=== PATIENT | male | born 1960 | race Caucasian/White ===

== ENCOUNTER 2024-06-23 11:24 | Emergency (ER) | payer OTHER, SELFPAY ==
[2024-06-23 11:27] VITALS: BP 161/106
--- NOTE | 2024-06-23 13:15 | ED.MUSCINJ ---
HPI-Injury
General
Chief Complaint: Musculo-Skeletal Complaint
Source: patient
Exam Limitations: none
Time Seen by Provider: 06/23/24 12:13
Nursing documentation reviewed up to this point in time: agreed with
History of Present Illness-Injury
Initial Injury comments:
64-year-old male with history of HTN, was taking the trash out down his outside steps at home within the past few hours, slipped on the step and injured his right ankle and anterior right thigh, denies hitting his head or any other injury
Past History
Past History
ED Past Medical History: HTN
ED Past Surgical History: Orthopedic
Social History
Tobacco: Non-smoker
Alcohol: Occasional
Personal:
Living: with family
Employment: Retired
Review of Systems
Review of Systems
Allergies reviewed?: Yes
All Other Systems: ROS reviewed and negative except as documented in HPI and ROS
Musculoskeletal: Reports other (Pain right thigh and ankle); Denies neck pain or back pain
Skin: Reports no symptoms
Neurological: Reports no symptoms
Phy Exam
Physical Exam
Physical Exam:
GENERAL: No acute distress. A&Ox3.
CONSTITUTIONAL: Afebrile.
RESPIRATORY: Regular respirations, nonlabored, lungs clear.
CARDIOVASCULAR: Regular rate and rhythm, no murmurs, no rubs.
MUSCULOSKELETAL: Tenderness and swelling right ankle, brisk capillary refill, pedal pulse normal, foot is pink, cool. Knee is nontender with good range of motion. Tender to palpate over distal quadriceps, no significant swelling here no
discoloration, pain aggravated when he raises his leg or bends his knee. Distal neurovascular intact. Well perfused.
SKIN: Warm, dry, pink
PSYCH: Normal mood and affect. Well kept, interactive and appropriate
NEUROLOGIC: Awake, alert and oriented. No focal neurological deficits
Injury Course
Orders/Labs/Results
Orders:
Orders
06/23/24 11:29
CR Ankle - Right Min 3 Views * Urgent
Comment:
Reason For Exam: fall down steps
Femur, Right 2 View [CR Femur - Right Min 2 Vw] Urgent
Comment:
Reason For Exam: fall down steps
MDM/Problems Addressed
Differential Diagnosis Includes:
Fracture versus sprain of right
Muscle strain versus sprain of right quadriceps, femur fracture
MDM/Problems Addressed:
64-year-old male with history of HTN, was taking the trash out down his outside steps at home within the past few hours, slipped on the step and injured his right ankle and anterior right thigh, denies hitting his head or any other injury
X-ray right femur reveals no fracture. Initially read by this examiner
X-ray right ankle reveals a comminuted minimally displaced fracture of the distal fibula, initial reading by this examiner
No sign of disruption of the quadriceps muscle/tendon, exam more consistent with a muscle strain
Stirrup splint applied, crutches given
Neurovascular intact
Referred to orthopedics
*Critical Care Note
Total Time (30-74mins, 75-104mins- exclusive of procedures): Not Applicable
ED Attending Note
-
Portions of this chart may have been created with voice recognition software.� Occasional wrong word or��sound alike� substitutions may have occurred due to the inherent limitations of voice recognition software.
Discharge Plan
Departure
Patient Disposition: Home (Routine Discharge)
Date of Disposition: 06/23/24
Time of Disposition: 13:23
Patient with high blood pressure during this ER visit?: No
Condition: Good
Discharge Problem:
Fall from slip, trip, or stumble, Closed fracture of distal end of right fibula, Quadriceps strain
Instructions: Ankle Fracture (DC), Using Cold for Pain, Muscle Strain ED
Referrals:
Sahara Abarca I., DO [Active] - Next open appointment
Janet Chan PA-C [Family Provider] -
Activity Restrictions/Additional Instructions:
As we discussed, use the crutches with little to no weightbearing until further instructed by the orthopedic doctor. Call the orthopedic doctors office today and make next available appointment for a 'comminuted fracture of the distal fibula.'
Tylenol or ibuprofen as needed for pain
Rest with foot elevated to the level of your heart is much as you can in the next 2 days. Apply cold compress on top of your ankle 20 minutes off and on today and tomorrow is much as you can
You pulled your quadriceps muscle. You may apply cold compress to that area also.
Interventions
Interventions:
*Risk Screen - Suicide Last Done: 06/23/24 11:29
*General Assessment Last Done: 06/23/24 11:29
*Neglect/Abuse Screening Last Done: 06/23/24 11:29
*ED COVID-19 Vaccine History Last Done: 06/23/24 11:29
*Nursing Disposition Last Done: 06/23/24 13:46
ED-Musculoskeletal Assessment Last Done: 06/23/24 12:05
Discharge Date and Time
Discharge Date/Time: 06/23/24 13:47
Print Language: URDU
[2024-06-23 13:28] VITALS: BP 142/85
== END 2024-06-23 13:47 | disposition home or self-care (01) ==
LOC: EMR 11:24
PROVIDERS: EMERGENCY PHYSICIAN Emergency Medicine; FAMILY PHYSICIAN Physician Assistant
DX: S82.831A Other fracture of upper and lower end of right fibula, initial encounter for closed fracture (principal); S76.111A Strain of right quadriceps muscle, fascia and tendon, initial encounter; W10.9XXA Fall (on) (from) unspecified stairs and steps, initial encounter; I10 Essential (primary) hypertension
CPT/HCPCS: 29515; 99283; 73552; 73610

== ENCOUNTER → 2024-06-25 15:59 | Outpatient (REF) | payer OTHER, SELFPAY | LOC: RCS 15:59 | PROVIDERS: ATTENDING PHYSICIAN Student in an Organized Health Care Education/Training Program; FAMILY PHYSICIAN Physician Assistant | DX: Z01.818 Encounter for other preprocedural examination (principal) | CPT/HCPCS: 93005 ==

== ENCOUNTER 2024-06-26 12:46 | Day surgery (SDC) | payer OTHER, SELFPAY ==
[2024-06-26] VITALS (11 sets, daily range): BP systolic 118–167; BP diastolic 71–96; BMI 35.5
[2024-06-26] MEDS: CELEBREX 200 MG PO (13:41)
[2024-06-26] MEDS: TYLENOL 1000 MG PO (13:41)
[2024-06-26] MEDS: NORMOSOL-R/PLASMALYTE-A 1000 IV (13:42)
[2024-06-26] MEDS: REMERON 15 MG PO (20:37)
[2024-06-26] MEDS: ZOLOFT 100 MG PO (20:37)
[2024-06-26] MEDS: TYLENOL 650 MG PO ×2 (20:37→23:18)
[2024-06-26] MEDS: COLACE 100 MG PO (20:37)
[2024-06-26] MEDS: ASPIRIN 325 MG PO (20:37)
[2024-06-26] MEDS: ZESTRIL 10 MG PO (20:38)
[2024-06-26] MEDS: SENOKOT PO (20:38)
[2024-06-27] VITALS (8 sets, daily range): BP systolic 99–135; BP diastolic 61–88; PULSE 87
--- NOTE | 2024-06-27 00:42 | PTCARENOTE ---
Pt arrived from PACU at 1999 in bed. Pt AAOX3. VSS. Neurovascular checks WNL. R knee primaseal scant drainage. immobilizer to R leg in place. R ankle splinted and kendal wrapped. leg elevated with ice. Pt oriented to room and call reynoso. bed in lowest
position and locked.
[2024-06-27] MEDS: TYLENOL 650 MG PO ×6 (03:23→23:01)
[2024-06-27] MEDS: ROXICODONE 5 MG PO (03:23)
[2024-06-27] MEDS: ASPIRIN 325 MG PO (08:11)
[2024-06-27] MEDS: COLACE 100 MG PO ×2 (08:11→20:09)
[2024-06-27] MEDS: SENOKOT PO (08:15)
[2024-06-27] MEDS: ROXICODONE 10 MG PO ×3 (08:23→20:46)
--- NOTE | 2024-06-27 09:46 | W.PN.ORTHO ---
Today's Communication / Plan
-
POD #1 s/p right quad tendon repair and ankle ORIF.
-Pain control with oxy, tylenol, and will add celebrex BID.
-NWB RLE with hinged knee brace locked in extension.
-PT/OT for crutch training.
-ASA 325 mg po daily x 4 weeks for DVT prophylaxis.
-D/c home pending PT session. Will consult case management to set up home PT/OT to assist with transition to home.
-F/u in office in 2 weeks for staple removal.
Assessment
.
Distal Motor Intact: Yes
Dressing:
Clean, dry and intact.
Assessment:
POD #1 s/p right quad tendon repair and ankle ORIF.
-Pain control with oxy, tylenol, and will add celebrex BID.
-NWB RLE with hinged knee brace locked in extension.
-PT/OT for crutch training.
-ASA 325 mg po daily x 4 weeks for DVT prophylaxis.
-D/c home pending PT session. Will consult case management to set up home PT/OT to assist with transition to home.
-F/u in office in 2 weeks for staple removal.
Plan
.
Surgery / Date: 06/26/2024 R quad tendon repair and ankle ORIF
DVT Prophylaxis: Aspirin
Activity:
Out of bed.
PT/OT
Discharge Plan: Home
Subjective
.
.:
Patient resting comfortably POD #1. Just took oxycodone for pain relief. Feels a little unsure of himself with the crutches and is hoping to have home PT/OT help with the transition home.
Vital Signs and Labs
.
Vital Signs and Labs:
Temp Pulse Resp BP Pulse Ox
98.2 F 69 18 118/65 96
06/27/24 07:00 06/27/24 07:00 06/27/24 07:00 06/27/24 07:00 06/27/24 07:00
Physical Exam
-
Right leg: Aquacel on knee with mild drainage. Moderate swelling and early ecchymosis. ROM brace in place locked in extension. Ankle splint c/d/i. Able to wiggle toes. Cap refill < 1 sec.
--- NOTE | 2024-06-27 09:57 | W.DS.TRANS ---
DC Summary - [employer]
-
Discharge Instructions:
Discharge Diagnosis/Procedures S/p right quad tendon repair and ankle ORIF
Diet As tolerated
Activity Do not bear weight R leg
Driving Restrictions No driving
Bathing Restrictions Keep dressing on right leg clean and dry.
Other Services PT
Wound Care Dressing to remain in place until post op appt
in office. Do not get dressings/splint wet.
Instructions:
Stand-Alone Forms:
Changes to Home Medications: No
Discharge Medications:
DC Medications w/original date entered in [employer] [facility]
acetaminophen 500 mg tablet 1,000 mg PO Q6H PRN pain 06/26/24
lisinopril 20 mg tablet 20 mg PO QPM 06/26/24
mirtazapine 15 mg tablet 15 mg PO QPM 06/26/24
oxycodone 5 mg tablet 5 mg PO Q4H PRN pain 06/26/24
sertraline 100 mg tablet 100 mg PO QPM 06/26/24
aspirin 325 mg tablet 325 mg PO DAILY DVT prophylaxis 30 days #30 tabs 06/27/24
celecoxib 100 mg capsule (Celebrex) 100 mg PO BID 15 days #30 caps 06/27/24
docusate sodium 100 mg capsule 200 mg (2 x 100 mg) PO BID 14 days #56 caps 06/27/24
sennosides 8.6 mg tablet (Stephanie-fernando) 17.2 mg (2 x 8.6 mg) PO BID 14 days #56 tabs 06/27/24
Home Medication Changes
Pending Results: No
--- NOTE | 2024-06-27 10:19 | CM ---
Addendum entered by Angelica Pennington RN 06/27/24 10:52:
[facility] fax:
Original Note:
Reviewed the chart notes and spoke with the patient at the bedside. Patient [place] with his spouse [facility] with a flight of steps to enter. The patient has a CPAP and shower bench. The patient has no had VN nor been to SNF. The
patient confirmed his [facility]. The patient is requesting VN and OT from [facility]. Referral sent in [facility]. CM continues to be available to patient/family and is monitoring medical plan for needs at discharge.
Plan: Discharge to home with [facility].
--- NOTE | 2024-06-27 12:31 | PTCARENOTE ---
Spoke with CM Ada Pennington regarding PT stating patient does not qualify for Home Care and needs placement; on Ada's behalf I sent tiger text to [facility]STRADA that CM will need PMR consult for pre-cert for acute rehab.
[2024-06-27] MEDS: ZESTRIL 10 MG PO (17:14)
[2024-06-27] MEDS: ZOLOFT 100 MG PO (17:15)
[2024-06-27] MEDS: REMERON 15 MG PO (17:15)
[2024-06-27] MEDS: SENOKOT 17.2 MG PO (20:09)
[2024-06-28] MEDS: ROXICODONE 10 MG PO ×2 (04:37→21:40)
[2024-06-28] MEDS: TYLENOL 650 MG PO ×5 (04:37→20:59)
[2024-06-28 07:15] VITALS: BP 115/75
--- NOTE | 2024-06-28 07:40 | W.PN.ORTHO ---
Today's Communication / Plan
-
POD #2 s/p right quad tendon repair and ankle ORIF.
-Pain control with oxy, tylenol, and will add celebrex BID. C/o incisional pain so will add Gabapentin 100 mg TID.
-NWB RLE with hinged knee brace locked in extension.
-PT/OT for crutch training.
-ASA 325 mg po daily x 4 weeks for DVT prophylaxis.
-D/c to acute rehab. Consult pending for [facility].
-F/u in office in 2 weeks for staple removal.
Assessment
.
Distal Motor Intact: Yes
Dressing:
Clean, dry and intact.
Assessment:
POD #2 s/p right quad tendon repair and ankle ORIF.
-Pain control with oxy, tylenol, and will add celebrex BID. C/o incisional pain so will add Gabapentin 100 mg TID.
-NWB RLE with hinged knee brace locked in extension.
-PT/OT for crutch training.
-ASA 325 mg po daily x 4 weeks for DVT prophylaxis.
-D/c to acute rehab. Consult pending for [facility].
-F/u in office in 2 weeks for staple removal.
Plan
.
Surgery / Date: 06/26/2024 R quad tendon repair and ankle ORIF
Activity:
Out of bed.
PT/OT
Discharge Plan: Rehab
Subjective
.
.:
Patient resting comfortably in bed, but does report a difficult time sleeping due to 'incisional pain'. Had some challenges with PT yesterday due to balance issues so acute rehab was recommended. Consult has been placed.
Vital Signs and Labs
.
Vital Signs and Labs:
Temp Pulse Resp BP Pulse Ox
98.3 F 74 18 110/66 96
06/27/24 23:08 06/27/24 23:08 06/27/24 23:08 06/27/24 23:08 06/27/24 23:08
Physical Exam
-
Right leg: Knee ROM in place locked in extension. Primaseal dressing with stable drainage. Moderate soft tissue swelling and early ecchymosis. Splint in place on right ankle. Able to wiggle toes. N/v intact distally.
[2024-06-28] MEDS: NEURONTIN 100 MG PO ×3 (08:07→21:37)
[2024-06-28] MEDS: SENOKOT 17.2 MG PO ×2 (08:07→20:59)
[2024-06-28] MEDS: COLACE 100 MG PO ×2 (08:07→20:59)
[2024-06-28] MEDS: ASPIRIN 325 MG PO (08:08)
[2024-06-28] MEDS: CELEBREX 100 MG PO ×2 (08:08→20:59)
--- NOTE | 2024-06-28 09:11 | CM ---
Reviewed the chart notes. Referral sent to [facility]. PMR consult pending. CM continues to be available to patient/family and is monitoring medical plan for needs at discharge.
Plan: Discharge to Acute Rehab once bed found and precert obtained.
[2024-06-28] MEDS: ROXICODONE 5 MG PO (12:28)
[2024-06-28 13:36] VITALS: BP 128/87; PULSE 75; O2SAT 94
[2024-06-28 15:56] VITALS: BP 134/81
[2024-06-28] MEDS: REMERON 15 MG PO (17:26)
[2024-06-28] MEDS: ZESTRIL 10 MG PO (17:26)
[2024-06-28] MEDS: ZOLOFT 100 MG PO (17:26)
[2024-06-28 22:25] VITALS: BP 148/81
[2024-06-29] MEDS: TYLENOL 650 MG PO ×6 (00:33→23:05)
[2024-06-29 08:11] VITALS: BP 142/91
[2024-06-29] MEDS: ASPIRIN 325 MG PO (08:17)
[2024-06-29] MEDS: CELEBREX 100 MG PO ×2 (08:17→19:46)
[2024-06-29] MEDS: SENOKOT PO (08:18)
[2024-06-29] MEDS: COLACE 100 MG PO ×2 (08:19→19:46)
[2024-06-29] MEDS: NEURONTIN 100 MG PO ×3 (08:19→23:05)
[2024-06-29] MEDS: ROXICODONE 5 MG PO (08:21)
--- NOTE | 2024-06-29 08:51 | W.PN.ORTHO ---
Today's Communication / Plan
-
POD #3 s/p right quad tendon repair and ankle ORIF.
-Pain control with oxy, tylenol, and will add celebrex BID. C/o incisional pain so will add Gabapentin 100 mg TID.
-NWB RLE with hinged knee brace locked in extension.
-PT/OT for crutch training.
-ASA 325 mg po daily x 4 weeks for DVT prophylaxis.
-D/c to acute rehab ([facility]). Consult pending
-F/u in office in 2 weeks for staple removal.
Assessment
.
Distal Motor Intact: Yes
Dressing:
Dry and intact. Mild strikethrough contained on Aquacel.
Assessment:
POD#3 Right QT repair and Right ankle ORIF
Overall doing/feeling well
Proximal calf soft and nontender
DNVI RLE
Plan
.
Surgery / Date: R quad tendon repair and ankle ORIF Jun 27
DVT Prophylaxis: Aspirin
Activity:
Out of bed. NWB RLE. hinged ROM brace to remain. Right ankle splint to remain
PT/OT
Discharge Plan: Rehab ([facility]?)
Subjective
.
.:
Patient resting comfortably. Endorses less pain today RLE. hinged ROM brace in place right knee. Splint in place right ankle
Vital Signs and Labs
.
Vital Signs and Labs:
Temp Pulse Resp BP Pulse Ox
98.2 F 71 18 142/91 95
06/29/24 08:11 06/29/24 08:11 06/29/24 08:11 06/29/24 08:11 06/29/24 08:11
[2024-06-29] MEDS: TYLENOL PO (12:52)
[2024-06-29] MEDS: SENOKOT 17.2 MG PO (15:06)
--- NOTE | 2024-06-29 15:50 | CM ---
Met with pt/chart reviewed
Pt updated status of acute rehab. Requested additional referrals be sent to [facility]
Referrals sent in [facility]
Will need auth
Plan - Acute rehab when bed/auth obtained
[2024-06-29 16:24] VITALS: BP 162/96; PULSE 78; O2SAT 97
[2024-06-29 16:38] VITALS: BP 160/100; BP 162/95; PULSE 85; O2SAT 95
--- NOTE | 2024-06-29 17:29 | W.PN.SURGUPD ---
Surgical Update
Surgical Update
patient is s/p R ankle ORIF 06/26. Recovering well at bedside
-Patient seen and evaluated at bedside. Posterior splint C/D/I
-Toes pink and well perfused, denies any calf pain
-Pain is well controlled
-NWB to RLE per ankle and quad tendon repair protocol
-Ok for discharge
--- NOTE | 2024-06-29 17:30 | CON.MD ---
Documented by User: Mary Calderon PA-C 06/29/24 18:16
Consultation - Medical
-
Referring Provider:�
Chief Complaint:�Ambulatory dysfunction status post right patella tendon repair and ankle ORIF
�
History of Present Illness:�64-year-old male with PMH of (HTN, was taking the trash out down his outside steps at home within the past few hours, slipped on the step and injured his right ankle and anterior right thigh, denies hitting his head or
any other injury. X-ray of right femur- There is mild joint space narrowing suggesting degenerative joint disease at the right. x-ray of ankle - There is acute comminuted oblique fracture of the distal fibular metaphysis with 2 mm posterolateral
displacement of the distal fracture fragment.
Patient underwent right ankle ORIF and right quad tendon repair by Dr. Darnell on 06/26/24
xray - ankle - 06/26/24
�There is a metallic plate along lateral aspect of the distal right fibula with 5 surgical screws through the metallic plate. 2 longer screw were placed through the metallic plate and through the distal tibial metaphysis There is one additional
surgical screw at the fracture line in the distal fibular metadiaphysis. . This was a comminuted fracture. Alignment appears improved.
Past Medical History:�HTN. h/o right vestibula schwannoma, baseline dizziness
Procedure History:�Right patellar tendon repair, right ankle ORIF- 06/26/24, gamma knife- right vestibular schwannoma
Family History:�not contributory
�
Social History:�
Functional Level Premorbidly:�Independent with all activities�
Functional Level Currently:�Bed mobility�mod assist, transfers�min assist, ambulation time 15 feet, 2 x 25 feet with rolling walker and min assist x 1. Toileting�max assist, upper extremity self-care�independent, lower extremity self-care�max
assist,
�
Tobacco:�Denies�
Alcohol:�Occasional
Drug use:�Denies�
�
Lives with:�Family
24-hour assistance available:�
Number of floors:�Multilevel
# steps to enter:�5 + 8 steps to living space
# steps to second floor: [facility]
Potential First floor set up:�no
Driving:�yes
Occupation:�retired
�
�
Allergies:�
Allergy/AdvReac Type Severity Reaction Status Date / Time
No Known Allergies Allergy Unverified 06/26/24 12:55
�
Review of Systems:�
Constitutional: (x) Normal _
Eye: (x) Normal _
Ear/Nose/Throat: (x) abNormal _ right vestibular schwannoma- s/p gamma knife, dizziness
Respiratory: (x) Normal _
Cardiovascular: (x) abNormal _HTN
Gastrointestinal: (x) Normal _
Genitourinary: (x) Normal _
Musculoskeletal: (x) abNormal _s/p right ankle ORIF and quad tendon repair
Integumentary: (x) Normal _
Neurologic: (x) Normal _
Psychiatric: (x) Normal _
Endocrine: (x) Normal _
Hematologic/Lymphatic: (x) Normal _
Allergic/Immunologic: (x) Normal _
�
Medications:�
Active Current Visit Medication List
Category Date Time Status
Acetaminophen [Tylenol] Med 06/26/24 20:00 Active
650 mg PO Q4HWA
Aspirin Med 06/26/24 17:00 Active
325 mg PO DAILY
Celecoxib [Celebrex] Med 06/28/24 08:00 Active
100 mg PO BID
Docusate Sodium [Colace] Med 06/26/24 20:00 Active
100 mg PO BID
Gabapentin [Neurontin] Med 06/28/24 08:00 Active
100 mg PO TID
HYDROmorphone [Dilaudid] Med 06/26/24 16:40 Active
0.5 mg IV Q3HPRN PRN
Lisinopril [Zestril] Med 06/26/24 19:00 Active
10 mg PO QPM
Mirtazapine [Remeron] Med 06/26/24 18:00 Active
15 mg PO QPM
Oxycodone [Roxicodone] Med 06/26/24 16:40 Active
10 mg PO Q4HPRN PRN
Oxycodone [Roxicodone] Med 06/26/24 16:35 Active
5 mg PO Q4HPRN PRN
Sennosides [Senokot] Med 06/26/24 20:00 Active
17.2 mg PO BID
Sertraline HCl [Zoloft] Med 06/26/24 18:00 Active
100 mg PO QPM
�
Vitals:�
Temp Pulse Resp BP Pulse Ox
98.2 F 71 18 142/91 95
06/29/24 08:11 06/29/24 08:11 06/29/24 08:11 06/29/24 08:11 06/29/24 08:11
Height 5 ft 9 in
Actual Weight 108.862 kg
Body Mass Index (BMI) 35.5
�
Physical Exam:�
General Appearance/Observation: Well-developed, well-nourished individual in no apparent distress.�
Pain/Comfort Assessment: right ankle, RLE
Mood/Affect: Appropriate�
�
Integumentary/Operative Site:�right knee with aquacel and RLE in lock brace, right ankle in splint and in kendal wra[
�� Pressure Ulcer Evaluation: absent over left heel. Right not visualized�
��
�� Other Type of Wound: absent�over left heel - right not visualized
��
�
Eyes: Conjunctiva/Lids: normal���� Pupils: pupils equal round and reactive to light and Accommodation�
Ears/Nose/Throat: oral mucosa moist,� throat clear.������������ Lips/Teeth/Gums: normal�
Neck: No muscle spasm or tenderness�
Cardiovascular: Heart: regular, no murmur�
Pulses: dorsalis pedis 2+ left , right wrapped in kendal
Respiratory: Respiratory Effort/Chest Expansion: normal������� Auscultation: Clear to auscultation bilaterally�
Gastrointestinal: abdomen not tender, no distension, normal abdominal bowel sounds
Genitourinary: No Vences�
Extremities:�Edema: right ankle in splint, kendal wrapped and right knee in locked brace �Cyanosis: None�Trophic�changes: None
�
Neurology Exam:
Orientation: Alert, Oriented to self, Time, Place�
Memory: Intact for immediate medical concerns
Comprehension: Intact
Two step command: Intact
Naming: Intact
Cranial Nerves:
�� CNII:�Pupillary light reflex: Intact����Visual Field: Intact
�� CN III, IV, : Extraocular muscles: Intact�
�� CN V:�Facial Sensation�at�Forehead: Intact,�Maxilla: Intact,�Mandible: Intact
�� CN VII:�Facial movement: Symmetric
�� CN VIII:�Hearing: Normal
�� CN IX/X:�Speech & swallow: Normal,�Position of Uvula: Midline
�� CN XI:�Shoulder shrug: Symmetric
�� CN XII:�Tongue protrusion: Midline
Sensory:
�� Light touch: Intact in bilateral upper and lower extremities
��
�
Reflexes:
�� Biceps: 2+ bilaterally
�� Brachioradialis: 2+ bilaterally
�� Triceps: 2+ bilaterally
�� Patellar: 2+left , NT on right
�� Achilles: 2+left - right not test
�� Babinski: Down going left, right not tested
�� Clonus: NT
�� Manju: Negative bilaterally�
Cerebellar: Dysmetria/Ataxia: None�
Musculoskeletal:
Motor: (Manual muscle scale 0-5)�
Muscle SA EF WE EE FF FA HF KE DF EHL PF
Right� 5 5 5 5 5 *- -
Left 5 5 5 5 5 5 5 5 5 5 5
�*can wiggle toes on right foot
Tone: Normal in all extremities, RLE deferred�
Range of Motion: Passively within normal limits in all extremities�, RLE not tested
�
Lab Results:
�
Diagnostic Results:�as per HPI�
�
Assessment:�64-year-old male with PMH of HTN s/p right quad tendon repair and ankle ORIF by Dr. Darnell on 06/26/24
�
Plan�
�PT/OT to increase independence with ADLs, improve balance, coordination, endurance, strength, mobility, community reintegration, decreased burden of care on others and family education.�
�
Ambulatory Dysfunction: s/p right quad tendon repair and ankle ORIF. Follow-up with Ortho in 2 weeks for staple removal. NWB RLE. hinged ROM brace to remain. Right ankle splint to remain
HTN: continue medications, monitor closely�
Psych/insomnia: Remeron 15 every afternoon. Sertraline 100 mg daily psychology consult.� Monitor mood, adjust medications as needed.�
Skin: monitor for pressure sores/rashes/lesions.�
Pain: acetaminophen or oxycodone as needed. Gabapentin at 100 3 times daily, Celebrex 100 mg twice , IV hydromorphone 0.5 every 3 as needed
Bowel: Colace and Senna, PRN bisacodyl.�
Bladder: Time void, PVRs, PRN straight
GI Prophylaxis: recommend Pantoprazole�
DVT Prophylaxis: Per Ortho protocol- ASA 325 mg p.o. daily x 4 weeks
Pulmonary: Incentive spirometry�
obesity: Continue to correctional counselor/case manager patient about diet adjustments to control obesity. Body habitus and increased force to move body and extremities causes further difficulty with functional tasks.�
Safety: Continue to reinforce assistance with all transfers.�
Code Status:� Full code
Dispo�(date/plan/equipment needs): Home with family care.� Social history reviewed.�
�
Functional and Medical Goals:�Modified Independent with ADL�s, ambulation, transfers�
�
Discharge Destination:�Patient would benefit from SNF for PT/OT to increase independence with ADLs, improve balance, coordination, endurance, strength, mobility, community reintegration, decreased burden of care on others and family education.�
�
Thank you for allowing me to care for your patient. Please contact me with any questions or concerns.

Documented by User: Noel Hernandez MD 06/29/24 21:45
Consultation - Medical
-
Referring Provider:�Dr. Dimitry Darnell
Chief Complaint:�Ambulatory dysfunction status post right patella tendon repair and ankle ORIF
�
History of Present Illness:�64-year-old male with PMH of (HTN, was taking the trash out down his outside steps at home within the past few hours, slipped on the step and injured his right ankle and anterior right thigh, denies hitting his head or
any other injury. X-ray of right femur- There is mild joint space narrowing suggesting degenerative joint disease at the right. x-ray of ankle - There is acute comminuted oblique fracture of the distal fibular metaphysis with 2 mm posterolateral
displacement of the distal fracture fragment.
Patient underwent right ankle ORIF and right quad tendon repair by Dr. Darnell on 06/26/24
xray - ankle - 06/26/24
�There is a metallic plate along lateral aspect of the distal right fibula with 5 surgical screws through the metallic plate. 2 longer screw were placed through the metallic plate and through the distal tibial metaphysis There is one additional
surgical screw at the fracture line in the distal fibular metadiaphysis. . This was a comminuted fracture. Alignment appears improved.
Past Medical History:�HTN. h/o right vestibula schwannoma, baseline dizziness
Procedure History:�Right patellar tendon repair, right ankle ORIF- 06/26/24, gamma knife- right vestibular schwannoma
Family History:�not contributory
�
Social History:�
Functional Level Premorbidly:�Independent with all activities�
Functional Level Currently:�Bed mobility�mod assist, transfers�min assist, ambulation time 15 feet, 2 x 25 feet with rolling walker and min assist x 1. Toileting�max assist, upper extremity self-care�independent, lower extremity self-care�max
assist,
�
Tobacco:�Denies�
Alcohol:�Occasional
Drug use:�Denies�
�
Lives with:�Family
24-hour assistance available:�Yes
Number of floors:�Multilevel
# steps to enter:�5 + 8 steps to living space
# steps to second floor: lives [place] [facility] [facility]
Potential First floor set up:�no
Driving:�yes
Occupation:�retired
�
�
Allergies:�
Allergy/AdvReac Type Severity Reaction Status Date / Time
No Known Allergies Allergy Unverified 06/26/24 12:55
�
Review of Systems:�
Constitutional: (x) Normal _
Eye: (x) Normal _
Ear/Nose/Throat: (x) abNormal _ right vestibular schwannoma- s/p gamma knife, dizziness
Respiratory: (x) Normal _
Cardiovascular: (x) abNormal _HTN
Gastrointestinal: (x) Normal _
Genitourinary: (x) Normal _
Musculoskeletal: (x) abNormal _s/p right ankle ORIF and quad tendon repair
Integumentary: (x) Normal _
Neurologic: (x) Normal _
Psychiatric: (x) Normal _
Endocrine: (x) Normal _
Hematologic/Lymphatic: (x) Normal _
Allergic/Immunologic: (x) Normal _
�
Medications:�
Active Current Visit Medication List
Category Date Time Status
Acetaminophen [Tylenol] Med 06/26/24 20:00 Active
650 mg PO Q4HWA
Aspirin Med 06/26/24 17:00 Active
325 mg PO DAILY
Celecoxib [Celebrex] Med 06/28/24 08:00 Active
100 mg PO BID
Docusate Sodium [Colace] Med 06/26/24 20:00 Active
100 mg PO BID
Gabapentin [Neurontin] Med 06/28/24 08:00 Active
100 mg PO TID
HYDROmorphone [Dilaudid] Med 06/26/24 16:40 Active
0.5 mg IV Q3HPRN PRN
Lisinopril [Zestril] Med 06/26/24 19:00 Active
10 mg PO QPM
Mirtazapine [Remeron] Med 06/26/24 18:00 Active
15 mg PO QPM
Oxycodone [Roxicodone] Med 06/26/24 16:40 Active
10 mg PO Q4HPRN PRN
Oxycodone [Roxicodone] Med 06/26/24 16:35 Active
5 mg PO Q4HPRN PRN
Sennosides [Senokot] Med 06/26/24 20:00 Active
17.2 mg PO BID
Sertraline HCl [Zoloft] Med 06/26/24 18:00 Active
100 mg PO QPM
�
Vitals:�
Temp Pulse Resp BP Pulse Ox
98.2 F 71 18 142/91 95
06/29/24 08:11 06/29/24 08:11 06/29/24 08:11 06/29/24 08:11 06/29/24 08:11
Height 5 ft 9 in
Actual Weight 108.862 kg
Body Mass Index (BMI) 35.5
�
Physical Exam:�
General Appearance/Observation: Well-developed, well-nourished male in no apparent distress.�
Pain/Comfort Assessment: right ankle, RLE
Mood/Affect: Appropriate�
�
Integumentary/Operative Site:�right knee with aquacel and RLE in lock brace, right ankle in splint and in kendal wrap
�� Pressure Ulcer Evaluation: absent over left heel. Right not visualized�
� Other Type of Wound: absent�over left heel - right not visualized
��
�
Eyes: Conjunctiva/Lids: normal���� Pupils: pupils equal round and reactive to light and Accommodation�
Ears/Nose/Throat: oral mucosa moist,� throat clear.������������ Lips/Teeth/Gums: normal�
Neck: No muscle spasm or tenderness�
Cardiovascular: Heart: regular, no murmur�
Pulses: dorsalis pedis 2+ left , right wrapped in kendal
Respiratory: Respiratory Effort/Chest Expansion: normal������� Auscultation: Clear to auscultation bilaterally�
Gastrointestinal: abdomen not tender, no distension, normal abdominal bowel sounds
Genitourinary: No Vences�
Extremities:�Edema: right ankle in splint, kendal wrapped and right knee in locked brace �Cyanosis: None�Trophic�changes: None
�
Neurology Exam:
Orientation: Alert, Oriented to self, Time, Place�
Memory: Intact for immediate medical concerns
Comprehension: Intact
Two step command: Intact
Naming: Intact
Cranial Nerves:
�� CNII:�Pupillary light reflex: Intact����
�� CN VII:�Facial movement: Symmetric
�� CN VIII:�Hearing: Normal
�� CN IX/X:�Speech & swallow: Normal,�Position of Uvula: Midline
�� CN XII:�Tongue protrusion: Midline
Sensory:
�� Light touch: Intact in bilateral upper and lower extremities
��
�
Reflexes:
�� Biceps: 2+ bilaterally
�� Brachioradialis: 2+ bilaterally
�� Triceps: 2+ bilaterally
�� Patellar: 2+left , NT on right
�� Achilles: 2+left - right not test
�� Babinski: Down going left, right not tested
�� Clonus: NT
�� Manju: Negative bilaterally�
Cerebellar: Dysmetria/Ataxia: None�
Musculoskeletal: Motor: (Manual muscle scale 0-5)�
Muscle SA EF WE EE FF FA HF KE DF EHL PF
Right� 5 5 5 5 5 *- -
Left 5 5 5 5 5 5 5 5 5 5 5
�*can wiggle toes on right foot, right foot splint and knee immobilizer
Tone: Normal in all extremities, RLE deferred�
Range of Motion: Passively within normal limits in all extremities�, RLE not tested
�
Lab Results: None available
Diagnostic Results:�as per HPI�
�
Assessment:�
64-year-old male with PMH of HTN s/p right quad tendon repair and ankle ORIF by Dr. Darnell on 06/26/24
�
Plan�
PT/OT to increase independence with ADLs, improve balance, coordination, endurance, strength, mobility, community reintegration, decreased burden of care on others and family education.�
�
Ambulatory Dysfunction: s/p right quad tendon repair and ankle ORIF. Follow-up with Ortho in 2 weeks for staple removal. NWB RLE. hinged ROM brace to remain. Right ankle splint to remain
HTN: continue medications, monitor closely�
Psych/insomnia: Remeron 15 every afternoon. Sertraline 100 mg daily psychology consult.� Monitor mood, adjust medications as needed.�
Skin: monitor for pressure sores/rashes/lesions.�
Pain: acetaminophen or oxycodone as needed. Gabapentin at 100 3 times daily, Celebrex 100 mg twice , IV hydromorphone 0.5 every 3 as needed
Bowel: Colace and Senna, PRN bisacodyl.�
Bladder: Time void, PVRs, PRN straight
GI Prophylaxis: recommend Pantoprazole�
DVT Prophylaxis: Per Ortho protocol- ASA 325 mg p.o. daily x 4 weeks
Pulmonary: Incentive spirometry�
obesity: Continue to correctional counselor/case manager patient about diet adjustments to control obesity. Body habitus and increased force to move body and extremities causes further difficulty with functional tasks.�
Safety: Continue to reinforce assistance with all transfers.�
Code Status:� Full code
Dispo�(date/plan/equipment needs): Home with family care.� Social history reviewed.�
Functional and Medical Goals:�Modified Independent with ADL�s, ambulation, transfers�
Discharge Destination:�Patient would benefit from SNF for PT/OT to increase independence with ADLs, improve balance, coordination, endurance, strength, mobility, community reintegration, decreased burden of care on others and family education.�
Attending Statement:
I saw and examined the patient today. Reviewed care plan with patient, therapy, nursing, and physician ambulance assistant. I agree with the above subjective and physical exam, and plan as documented by SEAN Calderon with adjustments made as necessary.
�
Thank you for allowing me to care for your patient. Please contact me with any questions or concerns.
[2024-06-29] MEDS: ZOLOFT 100 MG PO (17:51)
[2024-06-29] MEDS: ZESTRIL 10 MG PO (17:51)
[2024-06-29] MEDS: REMERON 15 MG PO (17:51)
[2024-06-29 23:05] VITALS: BP 135/88
[2024-06-30] MEDS: TYLENOL PO (04:48)
[2024-06-30 07:00] VITALS: BP 139/84
--- NOTE | 2024-06-30 07:01 | W.PN.ORTHO ---
Today's Communication / Plan
-
POD #4 s/p right quad tendon repair and ankle ORIF.
-Continue with pain control as needed
-NWB RLE with hinged knee brace locked in extension.
-PT/OT
-ASA 325 mg po daily x 4 weeks for DVT prophylaxis.
-Case management consult for discharge planning.
-F/u in office in 2 weeks for staple removal.
Assessment
.
Distal Motor Intact: Yes
Dressing:
Clean, dry and intact.
Plan
.
Surgery / Date: R quad tendon repair and ankle ORIF Jun 27
DVT Prophylaxis: Aspirin
Activity:
Out of bed.
PT/OT
Subjective
.
.:
Patient resting comfortably in bed. He reports that his pain is currently a 2/10. He did work with PT and OT yesterday
Vital Signs and Labs
.
Vital Signs and Labs:
Temp Pulse Resp BP Pulse Ox
98.6 F 82 20 135/88 95
06/29/24 23:05 06/29/24 23:05 06/29/24 23:05 06/29/24 23:05 06/29/24 23:05
Physical Exam
-
Right leg: Knee ROM brace in place locked in extension. Primaseal dressing with stable drainage. Moderate soft tissue swelling and early ecchymosis. Splint in place on right ankle. Able to wiggle toes. N/v intact distally.
[2024-06-30] MEDS: SENOKOT 17.2 MG PO ×2 (08:28→19:55)
[2024-06-30] MEDS: NEURONTIN 100 MG PO ×3 (08:29→21:32)
[2024-06-30] MEDS: CELEBREX 100 MG PO ×2 (08:29→19:55)
[2024-06-30] MEDS: TYLENOL 650 MG PO ×4 (08:29→19:55)
[2024-06-30] MEDS: ASPIRIN 325 MG PO (08:29)
[2024-06-30] MEDS: COLACE 100 MG PO ×2 (08:29→19:55)
--- NOTE | 2024-06-30 13:46 | CM ---
Addendum entered by Sybil Price 06/30/24 16:00:
Message left at [facility] - can not accept
[facility] - accepted. Spoke with pt - agreed to [facility].
Spoke with Aurora from [facility] [phone]
Will check on bed status and return call
Plan - SNF when bed confirmed/auth obtained
Original Note:
Chart reviewed. Met with pt
PM&R recs - SNF. Discussed with pt- given PAC list to review
Requesting referrals to [facility], [facility] and [facility]
Referrals sent in [facility]
Will need auth
Plan - SNF when bed/auth obtained
[2024-06-30 15:05] VITALS: BP 143/90
[2024-06-30 15:45] VITALS: BP 150/95; BP 181/98; PULSE 93; O2SAT 97
[2024-06-30] MEDS: REMERON 15 MG PO (17:21)
[2024-06-30] MEDS: ZOLOFT 100 MG PO (17:21)
[2024-06-30] MEDS: ZESTRIL 10 MG PO (17:21)
[2024-06-30] MEDS: ROXICODONE 5 MG PO ×2 (17:24→22:39)
[2024-06-30 23:05] VITALS: BP 123/76
[2024-07-01] MEDS: TYLENOL PO (00:15)
[2024-07-01] MEDS: ROXICODONE 10 MG PO ×2 (02:38→22:05)
[2024-07-01] MEDS: TYLENOL 650 MG PO ×5 (03:36→20:46)
[2024-07-01 07:00] VITALS: BP 125/76
--- NOTE | 2024-07-01 07:35 | W.PN.ORTHO ---
Today's Communication / Plan
-
POD #5 s/p right quad tendon repair with Dr. Darnell and ankle ORIF w/ Dr. Sullivan.
-Continue with pain control as needed; controlled with current regimen
-NWB RLE with hinged knee brace locked in extension.
-PT/OT
-ASA 325 mg po daily x 4 weeks for DVT prophylaxis.
-Case management consult for discharge planning. Accepted to [facility] but pending availability; possible discharge today versus tomorrow
-F/u in office in 2 weeks for staple removal.
Assessment
.
Distal Motor Intact: Yes
Dressing:
Clean, dry and intact.
Assessment:
Intact splint to right lower extremity as well as knee immobilizer. No strikethrough. Distal sensation and motor function intact to EHL
Plan
.
Surgery / Date: R quad tendon repair and ankle ORIF Jun 27
DVT Prophylaxis: Aspirin
Activity:
Out of bed.
PT/OT
Discharge Plan: SNF
Subjective
.
.:
Patient resting comfortably. Reports some increased pain regarding the right knee in the middle of the night controlled with oral medication
Vital Signs and Labs
.
Vital Signs and Labs:
Temp Pulse Resp BP Pulse Ox
99.4 F 85 17 123/76 95
06/30/24 23:05 06/30/24 23:05 06/30/24 23:05 06/30/24 23:05 06/30/24 23:05
--- NOTE | 2024-07-01 08:18 | W.PN.UPDATE ---
Update Note
Progress Note Update
Physical/hardcopy scripts were placed in chart for gabapentin 100 mg 3 times daily and oxycodone 5 to 10 mg for moderate and severe pain as needed as required for alf facility.
[2024-07-01] MEDS: NEURONTIN 100 MG PO ×3 (08:32→22:06)
[2024-07-01] MEDS: CELEBREX 100 MG PO ×2 (08:32→20:46)
[2024-07-01] MEDS: SENOKOT PO ×2 (08:33→20:47)
[2024-07-01] MEDS: ASPIRIN 325 MG PO (08:33)
[2024-07-01] MEDS: COLACE PO ×2 (08:33→20:46)
[2024-07-01 13:54] VITALS: BP 131/76; PULSE 75; O2SAT 95
[2024-07-01 15:00] VITALS: BP 148/93
--- NOTE | 2024-07-01 16:41 | CM ---
Chart reviewed
Additional SNF referrals sent
Auth required
Plan - SNF when bed obtained
[2024-07-01] MEDS: ZESTRIL 10 MG PO (17:18)
[2024-07-01] MEDS: ZOLOFT 100 MG PO (17:18)
[2024-07-01] MEDS: REMERON 15 MG PO (17:19)
[2024-07-01 23:00] VITALS: BP 137/88
[2024-07-02] MEDS: TYLENOL PO ×2 (00:22→06:09)
[2024-07-02 07:00] VITALS: BP 125/75
--- NOTE | 2024-07-02 07:29 | W.PN.ORTHO ---
Today's Communication / Plan
-
Spoke to patient this morning and he is having second thoughts about going to rehab. He would prefer to go home now. He is going to discuss further with his
Nursing aware
Hopefully social media marketing specialist can help coordinate him going home with visiting nurses
Knee immobilizer/splint right lower extremity at all time
Nonweightbearing right leg with crutches or walker
Ice with elevation to control swelling and pain
Return to office 2 weeks postop for skin clip removal
Discharge to home with visiting nurses either today or tomorrow
Assessment
.
Distal Motor Intact: Yes
Dressing:
Clean, dry and intact.
Plan
.
Surgery / Date: R quad tendon repair and ankle ORIF Jun 27
DVT Prophylaxis: Aspirin
Activity:
Out of bed.
PT/OT
Discharge Plan: Home w/ VN
Subjective
.
.:
Patient resting comfortably.
Vital Signs and Labs
.
Vital Signs and Labs:
Temp Pulse Resp BP Pulse Ox
99.2 F 80 17 137/88 95
07/01/24 23:00 07/01/24 23:00 07/01/24 23:00 07/01/24 23:00 07/01/24 23:00
--- NOTE | 2024-07-02 07:49 | W.DS.TRANS ---
DC Summary - [facility]
-
Discharge Instructions:
Discharge Diagnosis/Procedures S/p right quad tendon repair and ankle ORIF
Diet As tolerated
Activity Do not bear weight R leg
Driving Restrictions No driving
Bathing Restrictions Keep dressing on right leg clean and dry.
Other Services VN
Wound Care Dressing to remain in place until post op appt
in office. Do not get dressings/splint wet.
Instructions:
Stand-Alone Forms:
Changes to Home Medications: No
Discharge Medications:
DC Medications w/original date entered in [employer]
acetaminophen 500 mg tablet 1,000 mg PO Q6H PRN pain 06/26/24
lisinopril 20 mg tablet 20 mg PO QPM 06/26/24
mirtazapine 15 mg tablet 15 mg PO QPM 06/26/24
sertraline 100 mg tablet 100 mg PO QPM 06/26/24
aspirin 325 mg tablet 325 mg PO DAILY DVT prophylaxis 30 days #30 tabs 06/27/24
celecoxib 100 mg capsule (Celebrex) 100 mg PO BID 15 days #30 caps 06/27/24
docusate sodium 100 mg capsule 200 mg (2 x 100 mg) PO BID 14 days #56 caps 06/27/24
sennosides 8.6 mg tablet (Stephanie-fernando) 17.2 mg (2 x 8.6 mg) PO BID 14 days #56 tabs 06/27/24
gabapentin 100 mg capsule 100 mg PO TID PRN for neuropathic pain as needed #90 caps 07/01/24
oxycodone 5 mg tablet 5 mg PO Q6H PRN moderate pain #30 tabs 07/01/24
oxycodone 5 mg tablet 10 mg (2 x 5 mg) PO Q6H PRN for severe pain as needed #20 tabs 07/01/24
Home Medication Changes
Pending Results: No
[2024-07-02] MEDS: CELEBREX 100 MG PO ×2 (08:15→19:42)
[2024-07-02] MEDS: ASPIRIN 325 MG PO (08:16)
[2024-07-02] MEDS: TYLENOL 650 MG PO ×5 (08:16→23:04)
[2024-07-02] MEDS: NEURONTIN 100 MG PO ×3 (08:16→21:53)
[2024-07-02] MEDS: COLACE 100 MG PO ×2 (08:18→19:42)
[2024-07-02] MEDS: SENOKOT PO ×2 (08:18→20:18)
[2024-07-02 09:56] LABS: Glucose - Point of Care 200 mg/dl (70-99)
--- NOTE | 2024-07-02 09:58 | PTCARENOTE ---
Pt became dizzy cold and clammy with diaphoresis while sitting on the toilet, stood up to wash hands and symptoms worsened, called RN into room. Pt hypertensive, blood sugar 200. Pt assisted back to bed with assistance from [facility]. Pt stated
relief of symptoms once back in bed. BP remained elevated. RN to reassess. Olivia Guzman PA-c notifiied. Care remains ongoing.
[2024-07-02 10:49] LABS: % Basophils 0.3 % (0-2); % Eosinophils 2.6 % (0-6); % Immature Granulocytes 0.7 % (0-0.5); % Lymphocytes 12.4 % (20.5-51.1); % Monocytes 6.5 % (1.7-9.3); % Neutrophils 77.5 % (42.2-75.2); Absolute Eosinophils 0.3 10^3/uL (0-0.7); Absolute Immature Granulocytes 0.1 10^3/uL (0-0.05); Absolute Lymphocytes 1.4 10^3/uL (1.2-3.4); Absolute Monocytes 0.7 10^3/uL (0.1-0.6); Absolute Neutrophils 8.5 10^3/uL (1.4-6.5); Hematocrit 43.1 % (39.0-52.0); Hemoglobin 14.9 g/dL (13.0-18.0); Mean Corp Hgb Conc. 34.6 g/dL (33.0-37.0); Mean Corpuscular Hgb 29.6 pg (27.0-31.0); Mean Corpuscular Volume 85.5 fL (80.0-94.0); Mean Platelet Volume 8.8 fL (7.4-10.4); Nucleated Red Blood Cells % 0 % (-); Platelet Count 265 10^3/uL (130-400); Red Blood Cell Count 5.04 10^6/uL (4.70-6.10); Red Cell Dist. Width 13.2 % (11.5-14.5)
[2024-07-02 10:57] LABS: Blood Urea Nitrogen 18 mg/dl (9-20); Calcium 8.7 mg/dl (8.4-10.2); Carbon Dioxide 22 mmol/L (22-30); Chloride 103 mmol/L (98-107); Estimated Creatinine Clearance > 125 ml/min; Glucose 132 mg/dl (70-99); Potassium 4.1 mmol/L (3.5-5.1); Sodium 136 mmol/L (135-145); eGFR > 60.00
--- NOTE | 2024-07-02 11:12 | CM ---
Addendum entered by Sybil Price 07/02/24 15:32:
correction - REGIONAL CONSTRUCTION MANAGER - [phone]
Addendum entered by Sybil Price 07/02/24 15:07:
Spoke with Annabel from [facility] - no beds but offered bed at [facility]
Spoke with pt and his with - agree with facility
Confirmed with Aurora - will need auth
NPI's
[facility] - [id number]
Dr Allison Breen - [id number]
Plan - [facility] rehab when auth obtained
Original Note:
Chart reviewed. Spoke with pt
Discussed SNF vs home with HH - pt reports he prefers rehab at discharge
Prefers [facility] or [facility] - spoke with Mayelin at [facility] - checking bed availability; LM with Aurora at [facility]
Will need auth
Plan - SNF when bed obtained
[2024-07-02 11:37] VITALS: BP 137/85
[2024-07-02 13:16] VITALS: BP 138/87; BP 166/96; PULSE 78; O2SAT 96
[2024-07-02 15:00] VITALS: BP 130/72
--- NOTE | 2024-07-02 15:49 | CM ---
Authorization initiated with [employer] via [employer]
Accepted at [facility]
NPI# [id number]
Dr Breen NPI# [id number]
Pended Auth #[id number]
clinicals faxed to [phone]
await auth
[2024-07-02] MEDS: REMERON 15 MG PO (17:24)
[2024-07-02] MEDS: ZOLOFT 100 MG PO (17:25)
[2024-07-02] MEDS: ZESTRIL 10 MG PO (17:25)
[2024-07-02 23:23] VITALS: BP 128/87
[2024-07-03] MEDS: TYLENOL 650 MG PO ×4 (03:31→18:40)
[2024-07-03 07:25] VITALS: BP 128/81
--- NOTE | 2024-07-03 07:26 | W.PN.ORTHO ---
Today's Communication / Plan
-
PT/OT
Knee immobilizer/splint right lower extremity at all times
Nonweightbearing right leg with crutches or walker
Ice with elevation to control swelling and pain
Maintain dressings
Return to office 2 weeks postop for skin clip removal
Patient would like to go to SNF. Case Management has bed. Awaiting auth. Discharge when auth obtained.
Assessment
.
Distal Motor Intact: Yes
Dressing:
Clean, dry and intact.
Plan
.
Surgery / Date: R quad tendon repair and ankle ORIF Jun 27
DVT Prophylaxis: Aspirin
Activity:
Out of bed.
PT/OT
Subjective
.
.:
Patient resting comfortably in bed this morning
Vital Signs and Labs
.
Vital Signs and Labs:
Lab Results
07/02/24 10:27
07/02/24 10:27
Temp Pulse Resp BP Pulse Ox
98.2 F 77 18 128/87 96
07/02/24 23:23 07/02/24 23:23 07/02/24 23:23 07/02/24 23:23 07/02/24 23:23
Physical Exam
-
Right leg: Knee ROM brace in place locked in extension. Primaseal dressing with stable drainage. Moderate soft tissue swelling and early ecchymosis. Splint in place on right ankle. Able to wiggle toes. N/v intact distally.
[2024-07-03] MEDS: ASPIRIN 325 MG PO (09:17)
[2024-07-03] MEDS: CELEBREX 100 MG PO (09:17)
[2024-07-03] MEDS: SENOKOT PO (09:17)
[2024-07-03] MEDS: NEURONTIN 100 MG PO ×2 (09:17→16:38)
[2024-07-03] MEDS: COLACE 100 MG PO (09:17)
--- NOTE | 2024-07-03 11:53 | CM ---
Addendum entered by Mitzi Wade 07/03/24 17:03:
TRANSPORT SET UP FOR 7:30PM - SHILA quintero notified
Addendum entered by Mitzi Wade 07/03/24 15:35:
Auth #[id number], APPROVED 07/03/24---NRD 07/12/24
Updates to the regular [employer] fax #: [phone]
information given to ingrid Simon
Addendum entered by Mitzi Wade 07/03/24 12:04:
[facility]
Report #: [phone]

Original Note:
Auth still pended for [facility].
Pended Auth #[id number]
clinicals faxed to [phone]
Notified Annabel [phone]
PLAN: [facility] once authorization is approved
[2024-07-03 15:47] VITALS: BP 133/77; PULSE 75
[2024-07-03 15:48] VITALS: BP 115/73
[2024-07-03] MEDS: TYLENOL PO (16:39)
[2024-07-03] MEDS: REMERON 15 MG PO (18:40)
[2024-07-03] MEDS: ZESTRIL 10 MG PO (18:40)
[2024-07-03] MEDS: ZOLOFT 100 MG PO (18:40)
[2024-07-03 18:42] VITALS: BP 134/87
== END 2024-07-03 19:55 ==
LOC: SDS 12:46
PROVIDERS: Physician Assistant Surgical; ATTENDING PHYSICIAN Specialist; CONSULT PHYSICIAN Physical Medicine & Rehabilitation
DX: S82.841A Displaced bimalleolar fracture of right lower leg, initial encounter for closed fracture (principal); S76.111A Strain of right quadriceps muscle, fascia and tendon, initial encounter; S93.431A Sprain of tibiofibular ligament of right ankle, initial encounter; W10.9XXA Fall (on) (from) unspecified stairs and steps, initial encounter
CPT/HCPCS: 27814; 27385; 27829; 73610; 76000; 80048; 82962; 85025; 94660; 97116; 97163; 97167; 97530; 97535; C1713

== ENCOUNTER 2024-07-22 18:30 | Inpatient (IN) | payer OTHER, SELFPAY ==
[2024-07-22] VITALS (11 sets, daily range): BP systolic 106–138; BP diastolic 60–84; BMI 35.0
[2024-07-22] MEDS: TYLENOL 650 MG PO (18:04)
[2024-07-22] MEDS: NORMOSOL-R/PLASMALYTE-A 1000 IV (18:05)
--- NOTE | 2024-07-22 18:18 | HPS.HSE ---
Addendum entered and electronically signed by Han Mendoza DO 07/22/24 18:56:
64-year-old male with DENILSON (on CPAP 8mmHg HS), hypertension, prediabetes, eczema, right acoustic neuroma/hearing loss, MDD, obesity, S/P recent right quad tendon repair with Dr. Darnell and ORIF of the right distal fibula with Dr. Sullivan on
06/22/2024 that is presented to the hospital with right knee postsurgical infection. Orthopedics with plan for irrigation and debridement today. Was discharged in the hospital on 07/03/2024 with knee immobilizer and right lower extremity splint and
follow-up office visit in 2 weeks. Requesting medical admission due to comorbidities. Per patient he chills and fever of 102.6 �F on the day of the [place] Bowl, labs 2 days afterwards with WBC 18,000. AFVSS at time of my assessment
Post-surgical infection of RLE. Will admit patient to medicine for IV antibiotics status post right knee irrigation and debridement. Trend CBC and temperature curve on IV vancomycin and Zosyn for empiric coverage. Check blood cultures and OR
cultures from the knee. Trend ESR, CRP, CBC and temperature curve. ID consult for further guidance on antibiotics. Weightbearing status per orthopedics. As needed analgesic regimen
Hypertension. Will continue his home antihypertensive regimen, with low threshold to hold medications in the postoperative period if blood pressure runs low.
Hold aspirin for now due to surgical procedure planned today, will plan to resume at orthopedics discretion.
Follow-up CBC and BMP. Start IV maintenance fluids
Continue home CPAP, to bring in machine
Diet to be ordered post-OR
I have discussed this case with orthopedics and the PA-C. I will be admitting Brant Sargent to Med/Surg and see is at high risk for morbidity from postoperative infection of his right knee and will require intensive monitoring of his vitals and blood
counts, readjustment of his antibiotic regimen as per cultures.
Original Note:
Family Physician
-
Family Physician: Dimitry Darnell
Chief Complaint
-
Infected Right Knee
History of Present Illness
Patient is a 64 y/o male past medical history of hypertension, and depression who presents with an infected right knee. Patient sustained a fall last month which results in the right bi-malleolar ankle fracture and right quadriceps tears. On
June 26 patient underwent ORIF and quadriceps tendon repair. He was discharged to a SNF on July 03. Patient reports about 10 days he started to developed chills, and then subsequently had a fever of 102.6F. He was seen at the orthopedic
office today at which they removed some chinmay and steri-strips. One area was open and started draining a large amount of purulent blood. He was sent from the orthopedic office to the hospital for admission, and incision and drainage in the OR
today.
Medical History
Past Medical History
Past Medical History: Reports Other
Additional Past Medical History:
Essential Hypertension
Depression / Insomnia
Obstructive Sleep Apnea
Past Surgical History: Reports Other
Additional Past Surgical History:
Right Quadriceps Tendon Repair
Right Bi-Malleolar Ankle Fracture ORIF
Clavicle ORIF
Social History
Tobacco: Non-smoker
Alcohol: Occasional
Family History
Family History: Not pertinent
Allergies / Home Medications
Allergies reflects when Allergies were last updated in [facility].
Home Medications with original date entered in [facility]
Allergy/Medication List:
Allergies
Allergy/AdvReac Type Severity Reaction Status Date / Time
No Known Allergies Allergy Verified 07/22/24 17:32
Home Medications
acetaminophen 500 mg tablet 1,000 mg PO Q6H PRN pain 06/26/24
lisinopril 20 mg tablet 20 mg PO QPM 06/26/24
mirtazapine 15 mg tablet 15 mg PO QPM 06/26/24
sertraline 100 mg tablet 100 mg PO QPM 06/26/24
aspirin 325 mg tablet 325 mg PO DAILY DVT prophylaxis 30 days #30 tabs 06/27/24
celecoxib 100 mg capsule (Celebrex) 100 mg PO BID 15 days #30 caps 06/27/24
docusate sodium 100 mg capsule 200 mg (2 x 100 mg) PO BID 14 days #56 caps 06/27/24
sennosides 8.6 mg tablet (Stephanie-fernando) 17.2 mg (2 x 8.6 mg) PO BID 14 days #56 tabs 06/27/24
gabapentin 100 mg capsule 100 mg PO TID PRN for neuropathic pain as needed #90 caps 07/01/24
oxycodone 5 mg tablet 5 mg PO Q6H PRN moderate pain #30 tabs 07/01/24
oxycodone 5 mg tablet 10 mg (2 x 5 mg) PO Q6H PRN for severe pain as needed #20 tabs 07/01/24
cephalexin 750 mg capsule 750 mg PO Q6H 07/22/24
Review of Systems
-
A 12 point ROS was completed and negative except as noted: Yes
Constitutional: Reports Fever and Chills
Respiratory: Denies Cough or Trouble Breathing
Cardiac: Denies Chest Pain or Palpitations
Abdomen/GI: Denies Abdominal Pain, Nausea, Vomiting or Diarrhea
Physical Exam
Vital Signs
Temp 98.8
Pulse 88
Blood Pressure 138/84
Resp 18
Physical Exam
General: Well Developed and Well Nourished
HEENT: Anicteric and Moist mucous membranes
Respiratory: Clear and Non Labored Respirations
Cardiac: S1/S2 and Regular Rhythm
GI: Soft and Non Tender
Rectal: Deferred by Provider
Musculoskeletal: No Clubbing, No Cyanosis and Other (RLE wrapped in NERY from toes to just above the knee)
Skin: Warm, Dry and Other (Large amount of ABDs over incision site with notable bloody drainage; Mild erythema right knee)
Neuro: Awake, Alert, Oriented and Nonfocal/grossly intact
Psych: Calm
Laboratory Results
-
Labs are Pending
Data Reviewed
-
Lab Data: Other (Labs Pending)
Old Records: Reviewed
Impression/Plan
-
Post-Op Infection of Right Quadriceps Tendon Repair
-Orthopedics taking patient to OR this evening for I&D
-Cultures to be obtained in OR
-Check blood cultures
-Check CBC, CRP and ESR
-Start empiric Vancomycin and Zosyn after cultures obtained
Essential Hypertension
-Continue lisinopril
Depression / Insomnia
-Continue Zoloft and Remeron
Obstructive Sleep Apnea
-Continue CPAP - Patient's will bring from home
DVT proph: SCD
Code Status: Full Code
[2024-07-22 18:37] LABS: Hematocrit 34.2 % (39.0-52.0); Hemoglobin 11.9 g/dL (13.0-18.0); Mean Corp Hgb Conc. 34.8 g/dL (33.0-37.0); Mean Corpuscular Hgb 29.6 pg (27.0-31.0); Mean Corpuscular Volume 85.1 fL (80.0-94.0); Red Blood Cell Count 4.02 10^6/uL (4.70-6.10); Red Cell Dist. Width 13.8 % (11.5-14.5); White Blood Cell Count 17.2 10^3/uL (4.8-10.8)
[2024-07-22 18:49] LABS: Erythrocyte Sed Rate 93 mm/hour (0-20)
[2024-07-22 18:51] LABS: Mean Platelet Volume 9.4 fL (7.4-10.4); Platelet Count 634 10^3/uL (130-400)
[2024-07-22 18:55] LABS: Blood Urea Nitrogen 15 mg/dl (9-20); Calcium 8.5 mg/dl (8.4-10.2); Carbon Dioxide 20 mmol/L (22-30); Chloride 98 mmol/L (98-107); Estimated Creatinine Clearance > 125 ml/min; Glucose 114 mg/dl (70-99); Potassium 4.2 mmol/L (3.5-5.1); Sodium 131 mmol/L (135-145); eGFR > 60.00
[2024-07-22 20:01] LABS: Glucose - Point of Care 134 mg/dl (70-99)
[2024-07-22] MEDS: DILAUDID 0.5 MG IV (20:28)
--- NOTE | 2024-07-22 20:35 | PHA.VAN.IN ---
Assessment
- Assessment
Renal Function: Appears similar to baseline
Concomitant Antimicrobials: ZOSYN
- Previous Dosing Experience
Previous Regimen: NONE
AUC Dosing Plan
- Dosing Variables
Dosing Weight (kg): 113.4
Dosing CrCl (ml/min): 100
Vd coefficient (L/kg): 0.6
- Empiric Dosing
Initial / Loading Dose: 2GM
Maintenance Regimen: 1500MG IV Q12H
Estimated AUC (mcg*h/mL): 538
Estimated Peak (mcg*h/mL): 33.9
Estimated Trough (mcg/ml): 13.6
Estimated Half Life (H): 7.9
Pharmacokinetics Vancomycin I
- -
Patient Age: 64
Patient Sex: Male
Vancomycin Day #: 1
Indication: Bone And Joint ([R] KNEE POST SURGICAL INFECTION)
Requesting Provider: NINFA
Height / Weight:
Height 5 ft 9 in
Actual Weight 113.4 kg
Pertinent Past Medical History: RECENT [R] KNEE SURGERY
- Vital Signs / Lab Results
Temp Pulse Resp BP Pulse Ox
97.9 F 85 10 115/61 96
07/22/24 19:57 07/22/24 20:30 07/22/24 20:30 07/22/24 20:30 07/22/24 20:30
Lab Results - Hematology
07/22/24
18:01
WBC 17.2 H
Lab Results - Chemistry
07/22/24 07/22/24
18:00 18:25
BUN Cancelled 15
Creatinine Cancelled 0.6 L
Estimated Creat Clear Cancelled > 125
[2024-07-22] MEDS: ASPIRIN 325 MG PO (20:43)
[2024-07-22] MEDS: NSS 1000 IV (20:59)
[2024-07-22] MEDS: VANCOCIN 540 MG IV (21:43)
[2024-07-22] MEDS: SENOKOT 17.2 MG PO (21:58)
[2024-07-22] MEDS: COLACE 200 MG PO (21:58)
--- NOTE | 2024-07-22 22:16 | PTCARENOTE ---
Patient arrived from PACU, in patient bed. AAO x 4. VSS. Neurovascular checks completed. Patient complains of 3/10 right upper leg, incision pain. Patient requesting Gabapentin--provider notified. IV Normosol infusing to gravity. CPAP ordered.
Patient refusing in house CPAP, at home CPAP is not at the bedside. Per patient, he is unsure if his will be bringing in his CPAP from home, tonsohail. Dual skin check completed with MAICOL Neff. Unable to assess surgical incision due to dressing
and knee immobilizer. Thigh high BENJAMIN hose intact in addition to bilateral foot pumps. Patient oriented to the unit. All patient needs met. Bed in lowest position. Call reynoso and personal belongings within reach.
--- NOTE | 2024-07-22 22:23 | PTCARENOTE ---
Lab called regarding ordered blood cultures. Per lab, patient still needs x 1 blood culture drawn and sent to lab.
[2024-07-22] MEDS: NEURONTIN 100 MG PO (22:35)
[2024-07-22] MEDS: ROXICODONE 10 MG PO (23:52)
[2024-07-22] MEDS: ZOSYN 50 IV (23:52)
[2024-07-23] VITALS (9 sets, daily range): BP systolic 97–134; BP diastolic 58–74; PULSE 89; BMI 35.0
[2024-07-23] MEDS: NSS 1000 IV ×2 (03:51→15:03)
[2024-07-23] MEDS: ZOSYN 50 IV ×2 (05:05→13:12)
[2024-07-23] MEDS: ROXICODONE 10 MG PO ×2 (05:12→21:02)
[2024-07-23] MEDS: VANCOCIN 530 MG IV ×2 (06:16→18:08)
[2024-07-23 07:58] LABS: Hematocrit 30.1 % (39.0-52.0); Hemoglobin 9.8 g/dL (13.0-18.0); Mean Corp Hgb Conc. 32.6 g/dL (33.0-37.0); Mean Corpuscular Volume 89.1 fL (80.0-94.0); Mean Platelet Volume 8.7 fL (7.4-10.4); Platelet Count 501 10^3/uL (130-400); Red Blood Cell Count 3.38 10^6/uL (4.70-6.10); Red Cell Dist. Width 13.6 % (11.5-14.5); White Blood Cell Count 16.6 10^3/uL (4.8-10.8)
[2024-07-23 08:16] LABS: Blood Urea Nitrogen 12 mg/dl (9-20); Calcium 8.2 mg/dl (8.4-10.2); Carbon Dioxide 22 mmol/L (22-30); Chloride 101 mmol/L (98-107); Estimated Creatinine Clearance > 125 ml/min; Glucose 126 mg/dl (70-99); Iron 59 ug/dl (49-181); Potassium 4.7 mmol/L (3.5-5.1); Sodium 132 mmol/L (135-145); eGFR > 60.00
[2024-07-23 08:24] LABS: Percent Saturation 30 % (20-50); Total Iron Binding Capacity 196 ug/dl (261-462)
--- NOTE | 2024-07-23 08:25 | W.PN.ORTHO ---
Today's Communication / Plan
-
Right knee immobilizer in place at all times
Right lower extremity splint in place at all times
Right lower extremity nonweightbearing
Ice with elevation to control swelling and pain
Vancomycin and Zosyn per ID
Await culture results
Close observation for now�patient may require repeat I&D
Dr. Sullivan to follow-up on right lower extremity for further recommendations
Appreciate medical teams efforts
Assessment
.
Distal Motor Intact: Yes
Dressing:
Clean, dry and intact.
Plan
.
Surgery / Date: R knee I & D 07/22 [facility]
DVT Prophylaxis: Aspirin
Activity:
Out of bed.
PT/OT
Subjective
.
.:
Patient resting comfortably.
Vital Signs and Labs
.
Vital Signs and Labs:
Lab Results
07/23/24 07:32
07/23/24 07:32
Temp Pulse Resp BP Pulse Ox
97.4 F 74 14 121/69 96
07/23/24 07:47 07/23/24 07:47 07/23/24 07:47 07/23/24 07:47 07/23/24 07:47
[2024-07-23 08:29] LABS: Erythrocyte Sed Rate 81 mm/hour (0-20)
[2024-07-23] MEDS: SENOKOT 17.2 MG PO ×2 (09:13→19:51)
[2024-07-23] MEDS: COLACE 200 MG PO ×2 (09:13→19:51)
[2024-07-23] MEDS: ASPIRIN 325 MG PO (09:14)
[2024-07-23] MEDS: NEURONTIN 100 MG PO ×2 (09:15→21:02)
[2024-07-23] MEDS: TYLENOL 650 MG PO ×2 (09:15→21:02)
--- NOTE | 2024-07-23 10:31 | PHA.VAN.FU ---
Vancomycin Assessment / Plan
- Assessment
Renal Function: Stable
WBC's are: Stable
In the past 24 hrs, patient has been: Afebrile
Concomitant Antimicrobials: piperacillin/tazobactam
- Dosing Plan
Continue: Vanc 1500mg Q12H
- Monitoring Plan
No level(s) ordered at this time: consider levels in next few days
- Follow Up
Pharmacy will continue to follow.
Vancomycin Follow UP
- -
Patient Age: 64
Patient Sex: Male
Vancomycin Day #: 2
Indication: Bone And Joint
Requesting Provider: Fam Bansal
Pertinent Antimicrobial Allergies:
NKDA
Height / Weight:
Height 5 ft 9 in
Actual Weight 107.303 kg
Pertinent Past Medical History: BMI ~35
- Vital Signs / Lab Results
Temp Pulse Resp BP Pulse Ox
97.4 F 74 14 121/69 96
07/23/24 07:47 07/23/24 07:47 07/23/24 07:47 07/23/24 07:47 07/23/24 07:47
Lab Results - Hematology
07/22/24 07/23/24
18:01 07:32
WBC 17.2 H 16.6 H
Lab Results - Chemistry
07/22/24 07/22/24 07/23/24
18:00 18:25 07:32
BUN Cancelled 15 12
Creatinine Cancelled 0.6 L 0.6 L
Estimated Creat Clear Cancelled > 125 > 125
Microbiology Results
07/22/24 20:15 Blood Culture - Preliminary
Blood/Venous Positive culture in progress
Gram Stain - Preliminary
[2024-07-23 11:22] LABS: Folate 5.5 ng/ml (2.76-20); Vitamin B12 352 pg/ml (239-931)
--- NOTE | 2024-07-23 11:33 | W.PN.HOSP.TC ---
Addendum entered and electronically signed by Han Mendoza DO 07/24/24 13:10:
CDI:
-Hyponatremia, not clinically significant
-Acute blood loss anemia, likely component of hemodilution
Original Note:
Today's Communication/Plan
-
Continue broad-spectrum antibiotics
Follow blood cultures
Analgesics and antiemetics
Plan for PT eval
Assessment / Plan
Assessment / Plan
#Staphylococcus aureus bacteremia
#Postoperative infection of RLE
#Recent ORIF of right ankle
#Recent right quadratus tendon repair
-Developed fevers and leukocytosis after procedure while in SNF
-Was seen in office by orthopedics on 07/22, noted purulence from the wound
-Sent to the ED at that time, went to the OR evening of 07/22 for I&D, debridement
-Cultures taken, started on broad-spectrum antibiotics with IV vancomycin and Zosyn
-Blood cultures returning positive for Staph aureus, sensitivities pending
-Has remained hemodynamically stable, no fevers this morning
Plan
-Continue broad-spectrum antibiotics and maintenance IVF
-Follow cultures for sensitivities, trend CBC and temp
-Continue to hold home aspirin for now
-Plan for repeat blood cultures at 48 hours
-PRN analgesics and antiemetic
-Consider echocardiogram
#Obstructive sleep apnea
-Uses home CPAP at 8 mmHg, brought in his unit
-No known pulmonary hypertension or RV dysfunction
#Essential hypertension
-Home regimen includes lisinopril
-No known history of hypertensive systemic disease
-Blood pressure here well-controlled
#H/O depression
-Continue with home Remeron
DVT prophylaxis: SCDs
Diet: Regular
CODE STATUS: Full code
Anticipated Discharge: > 48 hours
Subjective/Interval History
-
Date of Service: July 23, 2024
Seen and examined at bedside. No acute events reported overnight. AFVSS this morning
Blood cultures returning positive for Staph aureus. White cells downtrending
He states he feels generally well this morning, has no new complain
Objective Data
-
Labs:
Laboratory Results
07/23/24
07:32
WBC 16.6 H
Hgb 9.8 L
Hct 30.1 L
Plt Count 501 H D
Sodium 132 L
Potassium 4.7
Chloride 101
Carbon Dioxide 22
BUN 12
Creatinine 0.6 L
Glucose 126 H
Calcium 8.2 L
Vital Signs:
Vital Signs
Temp Pulse Resp BP Pulse Ox
98.1 F 81 16 112/62 96
07/23/24 11:15 07/23/24 11:15 07/23/24 11:15 07/23/24 11:15 07/23/24 11:15
I&O
07/22/24 07/23/24 07/24/24
06:59 06:59 06:59
Intake Total 1570 / 1570
Output Total 500 / 500
Balance 1070 / 1070
Review of Systems
-
History Source: Patient
All other systems: Reviewed and negative
Physical Exam
-
General: Well Developed, No Apparent Distress and Obese
HEENT: Normocephalic, Atraumatic and Moist Mucous Membranes
Respiratory: Clear to Auscultation and Non Labored Respirations
Cardiac: Regular Rhythm and S1/S2; Negative Murmur, Rub or Gallop
GI: Soft, Nontender, Nondistended and Normal Bowel Sounds
Musculoskeletal: No Clubbing, No Cyanosis and No Edema
Skin: Warm, Dry and Normal Turgor; Negative Rash
Neuro: AO x 3 and Nonfocal/Grossly Intact; Negative Tremors
Psych: Calm
Data Reviewed
-
Labs: Labs Reviewed by me, Discussed with Physician (Infectious disease) and Discussed with Patient
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
[2024-07-23] MEDS: ROXICODONE 5 MG PO (13:21)
--- NOTE | 2024-07-23 13:28 | VNURNOTE ---
Home Health Liaison met with patient at bedside to discuss [facility] nurse/therapy, visits, schedule and homebound status. Patient is agreeable and understands that visits at home will be 2-3 x per week to assess and teach medical management. Patient is
aware that [facility] will contact them for start of care in 1-2 days after discharge from .
[facility] referral completed in [facility].
--- NOTE | 2024-07-23 15:43 | CON.ID ---
Consultation
-
Date/Time Consultation Requested: 07/22/20242003
Date/Time Consultation Performed: 07/23/2024 1540
Requesting Provider: Petra Bansal
Performing Provider: Dr. Vallejo
Reason for Consultation: Right leg infection
Chief Complaint / Past History
History of Present Illness
Brant Sargent is a 64-year-old man being evaluated at the request of Petra Bansal in regards to right leg infection. History is obtained from chart review, along with patient interview.
Patient reports that on December 21 he sustained a right leg injury as he was walking outside. He reports that his left foot slipped and he developed hyperflexion of his knee. He was seen in the ER and noted to have a ankle fracture. He subsequently
was seen by Ortho, and a MRI was performed.. Imaging revealed a right by malleoli or ankle fracture, along with a right quad tendon rupture. He was taken to the OR on 06/27, and remained an inpatient through 07/02. Thereafter, he was transferred to
a local rehab. He notes that approximately a week into his stay he developed some fevers. Late last week he was evaluated by Orthopedics, and found to have drainage from the knee area. He was again evaluated by orthopedics yesterday, and felt to
have an infection given ongoing drainage, and he was taken to the OR last evening, with the findings of a right thigh abscess. Since admission, blood cultures have turned positive for Staph aureus. Infectious Diseases is asked to comment upon
further antibiotic management.
Past History
Additional Past Medical History:
DENILSON
Vestibular neuroma
HTN
Additional Past Surgical History:
Right ankle surgery/right quad repair
Right clavicular ORIF
Allergy History:
No Known Allergies Allergy (Verified 07/22/24 17:32)
Medications Reviewed: Yes
Current Antibiotics:
Zosyn
Vancomycin (dosing per pharmacy
Social History
Tobacco: Non-Smoker
Alcohol: None
Drug: None
Personal:
Living: With Family
Employment: Retired
Family History
Family History: Not Pertinent
Review of Systems
Vital Signs
Temp Pulse Resp BP Pulse Ox
97.9 F 93 18 118/68 95
07/23/24 15:16 07/23/24 15:16 07/23/24 15:16 07/23/24 15:16 07/23/24 15:16
Physical Exam
Physical Exam
Constitutional: No Acute Distress, Comfortable and Non-toxic
Eyes: No Conjunctival Hemorrhage and Sclera Anicteric
Oral: No Thrush and No Ulcers
Cardiovascular: Regular Rate and S1/S2; Negative S3/S4 or Murmur
Pulmonary: Clear; Negative Wheezes, Rales or Rhonchi
Gastrointestinal: Soft, Non Tender, Non Distended and Normal Bowel Sounds
Extremities: Other (Right leg dressed in William wrap and splinted.)
Neurological: Awake and Alert
Psychological: Calm
Lab / Diagnostic Study Results
07/23/24 07:32
07/23/24 07:32
ESR 81 mm/hour (0-20) H 07/23/24 07:32
C-Reactive Protein 123.30 mg/L (0.0-10.00) H 07/23/24 07:32
Microbiology Results
Micro:
07/22/24 20:15 Wound Culture - Pending
Leg - Right Gram Stain - Preliminary
07/22/24 20:15 Blood Culture - Preliminary
Blood/Venous Staphylococcus aureus
Gram Stain - Preliminary
07/22/24 23:19 Blood Culture - Pending
Blood/Venous
07/22/24 20:15 Anaerobic Culture - Pending
Wound-Deep
07/22/24 18:01 MRSA Screen - Pending
Nose
Assessment / Plan
Right leg abscess; s/p I&D
Staph aureus bacteremia
Leukocytosis
Fevers
Elevated ESR and CRP
DENILSON
Hx vestibular neuroma
HTN
Recommendations:
Continue with vancomycin. Close monitoring of levels to prevent nephrotoxicity.
Given recovery of Staph aureus, narrow Zosyn to cefazolin.
Repeat blood cultures tomorrow to assess clearance of bacteremia.
Await final culture results to guide further antimicrobial selection and potential de-escalation.
Check echocardiogram
Further recommendations as additional data is returned.
Care Review
Plan reviewed with: Physician (Orthopedics)
[2024-07-23] MEDS: ANCEF 10 IV ×2 (16:42→23:40)
[2024-07-23] MEDS: ZESTRIL 20 MG PO (18:08)
[2024-07-23] MEDS: REMERON 15 MG PO (18:08)
[2024-07-23] MEDS: ZOLOFT 100 MG PO (18:08)
[2024-07-23 18:50] LABS: Hepatitis C Antibody Negative (Negative)
[2024-07-24] MEDS: ROXICODONE 10 MG PO ×2 (04:21→23:03)
[2024-07-24] MEDS: NSS 1000 IV (04:23)
[2024-07-24 05:25] VITALS: BMI 35.5
--- NOTE | 2024-07-24 05:42 | W.PN.ORTHO ---
Today's Communication / Plan
-
Right knee immobilizer in place at all times
DVT PPX ASA 325mg daily x30 days unless recommended otherwise per primary
Right lower extremity splint in place at all times
Right lower extremity nonweightbearing
Ice with elevation to control swelling and pain
Vancomycin and Zosyn per ID
Following C&S: positive for staph aureus
Close observation for now�patient may require repeat I&D
Dr. Sullivan to follow-up on right lower extremity for further recommendations
Appreciate medical teams efforts
Assessment
.
Distal Motor Intact: Yes
Plan
.
Surgery / Date: R knee I & D 07/22 [facility]
Activity:
Out of bed.
PT/OT
Subjective
.
.:
Patient resting comfortably.
Vital Signs and Labs
.
Vital Signs and Labs:
Temp Pulse Resp BP Pulse Ox
98.5 F 80 18 97/58 97
07/23/24 23:31 07/23/24 23:31 07/23/24 23:31 07/23/24 23:31 07/23/24 23:31
Physical Exam
-
Examination of right lower extremity she is approximate surgical incision with visible nylon sutures. There is some bloody saturation of his dressings but after takedown minimal drainage. Range of motion was not challenged. Sensation intact light
touch distally of the exposed toes
[2024-07-24] MEDS: VANCOCIN 530 MG IV ×2 (06:01→17:28)
[2024-07-24 07:00] VITALS: BP 126/76
[2024-07-24 07:58] LABS: % Basophils 0.6 % (0-2); % Eosinophils 1.9 % (0-6); % Immature Granulocytes 3.5 % (0-0.5); % Lymphocytes 17.4 % (20.5-51.1); % Monocytes 6.9 % (1.7-9.3); % Neutrophils 69.7 % (42.2-75.2); Absolute Basophils 0.1 10^3/uL (0-0.2); Absolute Eosinophils 0.2 10^3/uL (0-0.7); Absolute Immature Granulocytes 0.4 10^3/uL (0-0.05); Absolute Lymphocytes 2.1 10^3/uL (1.2-3.4); Absolute Monocytes 0.8 10^3/uL (0.1-0.6); Absolute Neutrophils 8.3 10^3/uL (1.4-6.5); Hematocrit 29.6 % (39.0-52.0); Hemoglobin 9.5 g/dL (13.0-18.0); Mean Corp Hgb Conc. 32.1 g/dL (33.0-37.0); Mean Corpuscular Hgb 29.1 pg (27.0-31.0); Mean Corpuscular Volume 90.5 fL (80.0-94.0); Mean Platelet Volume 8.5 fL (7.4-10.4); Nucleated Red Blood Cells % 0 % (-); Platelet Count 575 10^3/uL (130-400); Red Blood Cell Count 3.27 10^6/uL (4.70-6.10); Red Cell Dist. Width 13.8 % (11.5-14.5); White Blood Cell Count 11.8 10^3/uL (4.8-10.8)
[2024-07-24 08:30] LABS: Blood Urea Nitrogen 13 mg/dl (9-20); Calcium 8.3 mg/dl (8.4-10.2); Carbon Dioxide 23 mmol/L (22-30); Chloride 105 mmol/L (98-107); Estimated Creatinine Clearance > 125 ml/min; Glucose 93 mg/dl (70-99); Potassium 4.3 mmol/L (3.5-5.1); Sodium 136 mmol/L (135-145); eGFR > 60.00
[2024-07-24 08:39] LABS: Erythrocyte Sed Rate 86 mm/hour (0-20)
[2024-07-24] MEDS: ANCEF 10 IV ×3 (09:30→23:00)
[2024-07-24] MEDS: ASPIRIN 325 MG PO (09:34)
[2024-07-24] MEDS: SENOKOT 17.2 MG PO (09:34)
[2024-07-24] MEDS: COLACE 200 MG PO (09:35)
--- NOTE | 2024-07-24 10:33 | W.PN.ID1 ---
Date of Service
Date of Service: July 24, 2024
Today's Communication
awaiting echo
continue vanc and cefazolin pending sensitivites
Assessment / Plan
Right leg abscess; s/p I&D
Staph aureus bacteremia
Leukocytosis
Fevers
Elevated ESR and CRP
[facility]IL[place]
Hx vestibular neuroma
HTN
Recommendations:
Continue with vancomycin. Follow levels to prevent nephrotoxicity - will be considered over next several days
C/w cefazolin.
Repeat blood cultures x2 are in progress no growth to date
Source of bacteremia is the abscess
Await final culture results to guide further antimicrobial selection and potential de-escalation.
Echocardiogram - no valvular lesions
Further recommendations as additional data is returned.
Chief Complaint
-: Other (pyomyositis, s aureus bacteremia)
Subjective / Review of Systems
afebrile
bp overall stable
no complaints
Vital Signs / Physical Exam
Vital Signs
Vital Signs
Temp Pulse Resp BP Pulse Ox
97.8 F 72 16 126/76 97
07/24/24 07:00 07/24/24 07:00 07/24/24 07:00 07/24/24 07:00 07/24/24 07:00
Physical Exam
Constitutional: No Acute Distress
Cardiovascular: Regular Rate and S1/S2; Negative Murmur or Rub
Pulmonary: Clear and Symmetric; Negative Wheezes or Rales
Gastrointestinal: Soft, Non Tender, Non Distended and Normal Bowel Sounds
Skin: Warm and Dry; Negative Rash or Jaundice
Wound: Other (dressing clean, dry, intact)
Objective Data
Lab Data
Lab Results
07/24/24 07:25
07/24/24 07:25
ESR 86 mm/hour (0-20) H 07/24/24 07:25
Estimated Creat Clear > 125 ml/min 07/24/24 07:25
C-Reactive Protein 52.10 mg/L (0.0-10.00) H 07/24/24 07:25
Most recent labs reviewed.
Micro Results:
07/22/24 18:01 MRSA Screen - Final
Nose No Methicillin Resistant Staphylococcus aureus isolated.
07/24/24 08:24 Blood Culture - Pending
Blood/Venous
07/24/24 07:25 Blood Culture - Pending
Blood/Venous
07/22/24 23:19 Blood Culture - Preliminary
Blood/Venous No Growth in 24 hours- Final report to follow
07/22/24 20:15 Wound Culture - Pending
Leg - Right Gram Stain - Preliminary
07/22/24 20:15 Blood Culture - Preliminary
Blood/Venous Staphylococcus aureus
Gram Stain - Preliminary
07/22/24 20:15 Anaerobic Culture - Pending
Wound-Deep
--- NOTE | 2024-07-24 11:04 | W.PN.HOSP.TC ---
Today's Communication/Plan
-
Continue IV vancomycin and cefazolin
Follow cultures
Trend CBC, temperature, CRP
Analgesia
Nonweightbearing of RLE
Assessment / Plan
Assessment / Plan
#Staphylococcus aureus bacteremia
#Postoperative infection of RLE
#Recent ORIF of right ankle
#Recent right quadratus tendon repair
-Developed fevers and leukocytosis after procedure while in SNF
-Was seen in office by orthopedics on 07/22, noted purulence from the wound
-Sent to the ED at that time, went to the OR evening of 07/22 for I&D, debridement
-Cultures taken, started on broad-spectrum antibiotics with IV vancomycin and Zosyn
-Blood cultures returning positive for Staph aureus, sensitivities pending
-Has remained hemodynamically stable, no fevers this morning
-ID following, narrowed antibiotics to vancomycin and cefazolin
Plan
-Continue vancomycin and cefazolin IV
-Resume aspirin 325 mg for DVT prophylaxis
-Follow cultures for sensitivities, trend CBC and temp
-PRN analgesics and antiemetic
-Nonweightbearing to RLE
-Follow-up TTE
-Spot in OR held for Saturday in the event he needs further intervention
#Obstructive sleep apnea
-Uses home CPAP at 8 mmHg, brought in his unit
-No known pulmonary hypertension or RV dysfunction
#Essential hypertension
-Home regimen includes lisinopril
-No known history of hypertensive systemic disease
-Blood pressure here well-controlled
#H/O depression
-Continue with home Remeron
DVT prophylaxis: SCDs
Diet: Regular
CODE STATUS: Full code
Anticipated Discharge: > 48 hours
Subjective/Interval History
-
Date of Service: July 24, 2024
Seen and examined at the bedside. No acute events reported overnight. AFVSS this morning
White cell count and CRP downtrending. Denies any worsening leg pain or fevers.
Denies any new complaints. Requests laxative for mild constipation
Objective Data
-
Labs:
Laboratory Results
07/24/24
07:25
WBC 11.8 H
Hgb 9.5 L
Hct 29.6 L
Plt Count 575 H
Sodium 136
Potassium 4.3
Chloride 105
Carbon Dioxide 23
BUN 13
Creatinine 0.7
Glucose 93
Calcium 8.3 L
Vital Signs:
Vital Signs
Temp Pulse Resp BP Pulse Ox
97.8 F 72 16 126/76 97
07/24/24 07:00 07/24/24 07:00 07/24/24 07:00 07/24/24 07:00 07/24/24 07:00
I&O
07/23/24 07/24/24 07/25/24
06:59 06:59 06:59
Intake Total 1570 / 1570 2890 / 2890
Output Total 500 / 500 1700 / 1700
Balance 1070 / 1070 1190 / 1190
Review of Systems
-
History Source: Patient
All other systems: Reviewed and negative
Physical Exam
-
General: Well Developed, No Apparent Distress and Obese
HEENT: Normocephalic, Atraumatic and Moist Mucous Membranes
Respiratory: Clear to Auscultation and Non Labored Respirations
Cardiac: Regular Rhythm and S1/S2; Negative Murmur, Rub or Gallop
GI: Soft, Nontender, Nondistended and Normal Bowel Sounds
Musculoskeletal: No Clubbing, No Cyanosis, No Edema and Other (RLE wrapped)
Skin: Warm, Dry and Normal Turgor; Negative Rash
Neuro: AO x 3 and Nonfocal/Grossly Intact
Psych: Calm
Data Reviewed
-
Labs: Labs Reviewed by me and Discussed with Patient
--- NOTE | 2024-07-24 11:45 | CARDSERVLU ---
Echocardiogram with Lumason completed after protocol screening completed. Allergies verified.
Patent IV site: __L AC___
IV site flushed with 0.9% NaCl pre and post administration.
Diluted bolus method utilized to enhance visualization of ventricular chan.
Total volume given: _2.5___ mL
Patient tolerated all procedures well without complications.
--- NOTE | 2024-07-24 12:39 | PN.CDI ---
CDI
- -
CDI:
Physician Documentation Request
Admit Date: 07/22/24 18:30
Dear Doctor Reji,
Patient admitted with postoperative infection of RLE s/p R knee I & D.
Hgb levels documented below:
Laboratory Tests
07/22/24 07/23/24 07/24/24
18:01 07:32 07:25
Hgb 11.9 L 9.8 L 9.5 L
Based on the above, please clarify, in your progress note, which of the following is the most likely diagnosis you are evaluating, monitoring and/or treating?
Acute blood loss anemia
Insignificant abnormal lab findings
Other
Use of terms such as suspected, likely, concern for, or probable (associated with a specific diagnosis that is being evaluated, monitored, or treated as if it exists) are acceptable and can be coded in the inpatient setting, when documented at the
time of discharge.
Thank you,
Sahara YOUNG,RN,CCDS
CDI Specialist
Available via tiger text
Please use your independent medical judgment in providing your response.
--- NOTE | 2024-07-24 13:00 | PN.CDI ---
CDI
- -
CDI:
Physician Documentation Request
Admit Date: 07/22/24 18:30
Dear Doctor Reji,
Patient admitted with postoperative infection of RLE s/p R knee I & D.
Na levels documented below:
Patient received IV NSS x 4L.
Laboratory Tests
07/22/24 07/23/24 07/24/24
18:25 07:32 07:25
Sodium 131 L 132 L 136
Based on the above, please clarify in the progress notes, the appropriate diagnosis, if significant, that supports the above abnormalities and additional evaluation, monitoring and/or treatment rendered:
Hyponatremia
Insignificant abnormal lab findings
Other
Use of terms such as suspected, likely, concern for, or probable (associated with a specific diagnosis that is being evaluated, monitored, or treated as if it exists) are acceptable and can be coded in the inpatient setting, when documented at the
time of discharge.
Thank you,
Sahara YOUNG,RN,CCDS
CDI Specialist
Available via [place] text
Please use your independent medical judgment in providing your response.
[2024-07-24 13:12] VITALS: BP 111/65; PULSE 82; O2SAT 98
--- NOTE | 2024-07-24 13:40 | PHA.VAN.FU ---
Vancomycin Assessment / Plan
- Assessment
Renal Function: Stable
WBC's are: Trending Down
In the past 24 hrs, patient has been: Afebrile
Concomitant Antimicrobials: cefazolin
- Dosing Plan
Continue: Vanc 1500mg Q12H
- Monitoring Plan
No level(s) ordered at this time: consider levels in next few days
- Follow Up
Pharmacy will continue to follow.
Vancomycin Follow UP
- -
Patient Age: 64
Patient Sex: Male
Vancomycin Day #: 3
Indication: Bone And Joint
Requesting Provider: Fam Bansal
Pertinent Antimicrobial Allergies:
NKDA
Height / Weight:
Height 5 ft 9 in
Actual Weight 108.947 kg
Pertinent Past Medical History: BMI ~35
- Vital Signs / Lab Results
Temp Pulse Resp BP Pulse Ox
97.8 F 72 16 126/76 97
07/24/24 07:00 07/24/24 07:00 07/24/24 07:00 07/24/24 07:00 07/24/24 07:00
Lab Results - Hematology
07/22/24 07/23/24 07/24/24
18:01 07:32 07:25
WBC 17.2 H 16.6 H 11.8 H
Lab Results - Chemistry
07/22/24 07/22/24 07/23/24
18:00 18:25 07:32
BUN Cancelled 15 12
Creatinine Cancelled 0.6 L 0.6 L
Estimated Creat Clear Cancelled > 125 > 125
07/24/24
07:25
BUN 13
Creatinine 0.7
Estimated Creat Clear > 125
Microbiology Results
07/22/24 20:15 Anaerobic Culture - Preliminary
Wound-Deep Culture pending. Anaerobic cultures are examined after 3
days incubation. Additional information to follow.
07/22/24 20:15 Wound Culture - Preliminary
Leg - Right Staphylococcus aureus
Gram Stain - Preliminary
07/22/24 20:15 Blood Culture - Preliminary
Blood/Venous Staphylococcus aureus
Gram Stain - Preliminary
07/22/24 18:01 MRSA Screen - Final
Nose No Methicillin Resistant Staphylococcus aureus isolated.
07/22/24 23:19 Blood Culture - Preliminary
Blood/Venous No Growth in 24 hours- Final report to follow
--- NOTE | 2024-07-24 14:10 | CM ---
Chart reviewed and plan is to home with [facility] when stable.
Plan; Home with [facility]
[2024-07-24 15:00] VITALS: BP 121/71
[2024-07-24] MEDS: ZESTRIL 20 MG PO (17:27)
[2024-07-24] MEDS: ZOLOFT 100 MG PO (17:27)
[2024-07-24] MEDS: REMERON 15 MG PO (17:28)
[2024-07-24] MEDS: SENOKOT PO (19:39)
[2024-07-24] MEDS: COLACE PO (19:39)
[2024-07-24 23:47] VITALS: BP 130/74
[2024-07-25 06:00] VITALS: BMI 35.7
[2024-07-25] MEDS: VANCOCIN 530 MG IV ×2 (06:01→18:09)
[2024-07-25 07:10] VITALS: BP 111/70
--- NOTE | 2024-07-25 08:17 | PHA.VAN.FU ---
Vancomycin Assessment / Plan
- Assessment
Renal Function: Stable
WBC's are: Trending Down
In the past 24 hrs, patient has been: Afebrile
Concomitant Antimicrobials: ANCEF
- Dosing Plan
Continue: 1500MG Q12H
- Monitoring Plan
Peak Level: 07/25 @2100
Trough Level: 07/26 @0530
- Follow Up
Pharmacy will continue to follow.
Vancomycin Follow UP
- -
Patient Age: 64
Patient Sex: Male
Vancomycin Day #: 4
Indication: Bone And Joint
Requesting Provider: Fam Bansal
Pertinent Antimicrobial Allergies:
NKDA
Height / Weight:
Height 5 ft 9 in
Actual Weight 109.486 kg
Pertinent Past Medical History: BMI ~35
- Vital Signs / Lab Results
Temp Pulse Resp BP Pulse Ox
98.6 F 86 18 130/74 97
07/24/24 23:47 07/24/24 23:47 07/24/24 23:47 07/24/24 23:47 07/24/24 23:47
Lab Results - Hematology
07/22/24 07/23/24 07/24/24
18:01 07:32 07:25
WBC 17.2 H 16.6 H 11.8 H
Lab Results - Chemistry
07/22/24 07/22/24 07/23/24
18:00 18:25 07:32
BUN Cancelled 15 12
Creatinine Cancelled 0.6 L 0.6 L
Estimated Creat Clear Cancelled > 125 > 125
07/24/24
07:25
BUN 13
Creatinine 0.7
Estimated Creat Clear > 125
Microbiology Results
07/22/24 20:15 Blood Culture - Preliminary
Blood/Venous Staphylococcus aureus
Gram Stain - Preliminary
07/24/24 07:25 Blood Culture - Preliminary
Blood/Venous No Growth in 24 hours- Final report to follow
07/22/24 23:19 Blood Culture - Preliminary
Blood/Venous No Growth in 48 hours- Final report to follow
07/22/24 20:15 Anaerobic Culture - Preliminary
Wound-Deep Culture pending. Anaerobic cultures are examined after 3
days incubation. Additional information to follow.
07/22/24 20:15 Wound Culture - Preliminary
Leg - Right Staphylococcus aureus
Gram Stain - Preliminary
07/22/24 18:01 MRSA Screen - Final
Nose No Methicillin Resistant Staphylococcus aureus isolated.
[2024-07-25] MEDS: ANCEF 10 IV ×3 (08:55→23:31)
[2024-07-25] MEDS: ASPIRIN 325 MG PO (08:55)
[2024-07-25] MEDS: ROXICODONE 5 MG PO (09:07)
[2024-07-25] MEDS: COLACE PO (09:09)
[2024-07-25] MEDS: SENOKOT PO (09:09)
[2024-07-25 09:22] LABS: % Basophils 0.4 % (0-2); % Eosinophils 1.5 % (0-6); % Immature Granulocytes 2.5 % (0-0.5); % Lymphocytes 12.8 % (20.5-51.1); % Monocytes 6.5 % (1.7-9.3); % Neutrophils 76.3 % (42.2-75.2); Absolute Basophils 0.1 10^3/uL (0-0.2); Absolute Eosinophils 0.2 10^3/uL (0-0.7); Absolute Immature Granulocytes 0.3 10^3/uL (0-0.05); Absolute Lymphocytes 1.5 10^3/uL (1.2-3.4); Absolute Monocytes 0.8 10^3/uL (0.1-0.6); Absolute Neutrophils 9.1 10^3/uL (1.4-6.5); Hematocrit 28.2 % (39.0-52.0); Hemoglobin 9.3 g/dL (13.0-18.0); Mean Corpuscular Hgb 29.2 pg (27.0-31.0); Mean Corpuscular Volume 88.7 fL (80.0-94.0); Mean Platelet Volume 8.6 fL (7.4-10.4); Nucleated Red Blood Cells % 0 % (-); Platelet Count 555 10^3/uL (130-400); Red Blood Cell Count 3.18 10^6/uL (4.70-6.10); Red Cell Dist. Width 13.7 % (11.5-14.5); White Blood Cell Count 11.9 10^3/uL (4.8-10.8)
--- NOTE | 2024-07-25 09:44 | W.PN.SURGUPD ---
Surgical Update
Surgical Update
patient is s/p R ankle ORIF with post-op infection to right quad tendon repair, now s/p R knee washout
-Patient seen and evaluated at bedside. Right ankle posterior splint C/D/I
-Will obtain R ankle radiographs, if hardware is stable and fracture healing surgical alignment is satisfactory, can progress with gradual progression of WBAT in CAM boot
-Will continue to follow
[2024-07-25 09:55] VITALS: BP 132/75; PULSE 76
[2024-07-25 10:07] LABS: Blood Urea Nitrogen 11 mg/dl (9-20); Calcium 8.4 mg/dl (8.4-10.2); Carbon Dioxide 24 mmol/L (22-30); Chloride 103 mmol/L (98-107); Estimated Creatinine Clearance > 125 ml/min; Glucose 104 mg/dl (70-99); Potassium 4.3 mmol/L (3.5-5.1); Sodium 133 mmol/L (135-145); eGFR > 60.00
[2024-07-25] MEDS: CELEBREX 100 MG PO ×2 (10:21→19:28)
--- NOTE | 2024-07-25 11:14 | W.PN.HOSP.TC ---
Today's Communication/Plan
-
Continue antibiotics
Follow-up right ankle x-ray
Weightbearing per orthopedic
Resume home Celebrex
Follow cultures
Assessment / Plan
Assessment / Plan
#Staphylococcus aureus bacteremia
#Postoperative infection of RLE
#Recent ORIF of right ankle
#Recent right quadratus tendon repair
-Developed fevers and leukocytosis after procedure while in SNF
-Was seen in office by orthopedics on 07/22, noted purulence from the wound
-Sent to the ED at that time, went to the OR evening of 07/22 for I&D, debridement
-Cultures taken, started on broad-spectrum antibiotics with IV vancomycin and Zosyn
-Blood and OR cultures returning positive for Staph aureus, sensitivities pending
-Has remained hemodynamically stable, no fevers this morning
-ID following, narrowed antibiotics to vancomycin and cefazolin
Plan
-Continue vancomycin and cefazolin IV
-Continue aspirin 325 mg for DVT prophylaxis
-Follow cultures for sensitivities, trend CBC and temp
-PRN analgesics and antiemetic
-F/U x-ray right ankle; NWB -> WBAT if not contraindications on xray
-Spot in OR held for Saturday in the event he needs further intervention
#Obstructive sleep apnea
-Uses home CPAP at 8 mmHg, brought in his unit
-No known pulmonary hypertension or RV dysfunction
#Essential hypertension
-Home regimen includes lisinopril
-No known history of hypertensive systemic disease
-Blood pressure here well-controlled
#H/O depression
-Continue with home Remeron
DVT prophylaxis: SCDs
Diet: Regular
CODE STATUS: Full code
Anticipated Discharge: > 48 hours
Subjective/Interval History
-
Date of Service: July 25, 2024
Seen and examined at bedside. No acute events report overnight. AFVSS this morning
White cell count and inflammatory marker continue to downtrend. Orthopedics ordering x-ray of right ankle, for consideration of weightbearing recommendations
He denies any new complaints as of this morning. Resumed his home Celebrex
Objective Data
-
Labs:
Laboratory Results
07/25/24
08:20
WBC 11.9 H
Hgb 9.3 L
Hct 28.2 L
Plt Count 555 H
Sodium 133 L
Potassium 4.3
Chloride 103
Carbon Dioxide 24
BUN 11
Creatinine 0.6 L
Glucose 104 H
Calcium 8.4
Vital Signs:
Vital Signs
Temp Pulse Resp BP Pulse Ox
98.2 F 80 18 111/70 96
07/25/24 07:10 07/25/24 07:10 07/25/24 07:10 07/25/24 07:10 07/25/24 07:10
I&O
07/24/24 07/25/24 07/26/24
06:59 06:59 06:59
Intake Total 2890 / 2890 1840 / 1840
Output Total 1700 / 1700 2870 / 2870
Balance 1190 / 1190 -1030 / -1030
Review of Systems
-
History Source: Patient
All other systems: Reviewed and negative
Physical Exam
-
General: Well Developed, No Apparent Distress and Obese
HEENT: Normocephalic, Atraumatic and Moist Mucous Membranes
Respiratory: Clear to Auscultation and Non Labored Respirations
Cardiac: Regular Rhythm and S1/S2; Negative Murmur, Rub or Gallop
GI: Soft, Nontender, Nondistended and Normal Bowel Sounds
Musculoskeletal: No Clubbing, No Cyanosis, No Edema and Other (Right lower extremity bandaging)
Skin: Warm, Dry and Normal Turgor; Negative Rash
Neuro: AO x 3 and Nonfocal/Grossly Intact
Psych: Calm
Data Reviewed
-
Labs: Labs Reviewed by me and Discussed with Patient
--- NOTE | 2024-07-25 11:53 | W.PN.ORTHO ---
Today's Communication / Plan
-
POD #3 s/p right leg I&D s/p quad tendon repair on 06/26/24
Right knee Post op brace in place at all times
-DVT PPX ASA 325mg daily x30 days unless recommended otherwise per primary
-Right lower extremity splint in place at all times. Repeat x-rays with better AP view ordered.
-Right lower extremity nonweightbearing until x-rays completed. May be able to transition to boot with progressive WBAT.
-Ice with elevation to control swelling and pain
-Vancomycin and Zosyn per ID
-Following C&S: positive for staph aureus
-Close observation for now�patient may require repeat I&D. New dressing applied.
-Appreciate medical teams efforts
Assessment
.
Distal Motor Intact: Yes
Dressing:
Clean, dry and intact.
Assessment:
POD #3 s/p right leg I&D s/p quad tendon repair on 06/26/24
Right knee Post op brace in place at all times
-DVT PPX ASA 325mg daily x30 days unless recommended otherwise per primary
-Right lower extremity splint in place at all times. Repeat x-rays with better AP view ordered.
-Right lower extremity nonweightbearing until x-rays completed. May be able to transition to boot with progressive WBAT.
-Ice with elevation to control swelling and pain
-Vancomycin and Zosyn per ID
-Following C&S: positive for staph aureus
-Close observation for now�patient may require repeat I&D. New dressing applied.
-Appreciate medical teams efforts
Plan
.
Surgery / Date: R knee I & D 07/22 [facility]
DVT Prophylaxis: Aspirin
Activity:
Out of bed.
PT/OT
Subjective
.
.:
Patient resting comfortably in bedside chair. Overall doing okay, did have some discomfort in the thigh today which prompted him to take some pain medication. Wearing post op ROM brace locked in extension.
Vital Signs and Labs
.
Vital Signs and Labs:
Lab Results
07/25/24 08:20
07/25/24 08:20
Temp Pulse Resp BP Pulse Ox
98.2 F 80 18 111/70 96
07/25/24 07:10 07/25/24 07:10 07/25/24 07:10 07/25/24 07:10 07/25/24 07:10
Physical Exam
-
Right leg: Dressing taken down to reveal mild sanguinous drainage of the proximal aspect of the incision and distal portion. No gross purulent material expressed. Mild swelling. No regions of fluctuance or tenderness to palpation. Post op short
leg splint in place, c/d/i. Able to wiggle toes.
[2024-07-25 15:10] VITALS: BP 116/82
[2024-07-25] MEDS: ZESTRIL 20 MG PO (18:07)
[2024-07-25] MEDS: REMERON 15 MG PO (18:08)
[2024-07-25] MEDS: ZOLOFT 100 MG PO (18:08)
[2024-07-25] MEDS: SENOKOT 17.2 MG PO (19:28)
[2024-07-25] MEDS: COLACE 200 MG PO (19:28)
[2024-07-25 22:20] LABS: Vancomycin Peak 19.7 ug/ml (18-26)
[2024-07-25 23:45] VITALS: BP 113/59
[2024-07-26] MEDS: ROXICODONE 5 MG PO ×2 (05:07→17:18)
[2024-07-26] MEDS: VANCOCIN 530 MG IV (06:04)
[2024-07-26 06:25] LABS: Vancomycin Trough 10.2 ug/ml (5-20)
[2024-07-26 06:44] LABS: % Basophils 0.8 % (0-2); % Eosinophils 2.2 % (0-6); % Immature Granulocytes 2.6 % (0-0.5); % Lymphocytes 15.4 % (20.5-51.1); % Monocytes 6.1 % (1.7-9.3); % Neutrophils 72.9 % (42.2-75.2); Absolute Basophils 0.1 10^3/uL (0-0.2); Absolute Eosinophils 0.2 10^3/uL (0-0.7); Absolute Immature Granulocytes 0.3 10^3/uL (0-0.05); Absolute Lymphocytes 1.5 10^3/uL (1.2-3.4); Absolute Monocytes 0.6 10^3/uL (0.1-0.6); Absolute Neutrophils 7.1 10^3/uL (1.4-6.5); Hematocrit 27.4 % (39.0-52.0); Hemoglobin 9.3 g/dL (13.0-18.0); Mean Corp Hgb Conc. 33.9 g/dL (33.0-37.0); Mean Corpuscular Hgb 29.4 pg (27.0-31.0); Mean Corpuscular Volume 86.7 fL (80.0-94.0); Mean Platelet Volume 8.5 fL (7.4-10.4); Nucleated Red Blood Cells % 0 % (-); Platelet Count 550 10^3/uL (130-400); Red Blood Cell Count 3.16 10^6/uL (4.70-6.10); Red Cell Dist. Width 13.6 % (11.5-14.5); White Blood Cell Count 9.7 10^3/uL (4.8-10.8)
[2024-07-26 07:15] LABS: Blood Urea Nitrogen 12 mg/dl (9-20); Calcium 8.6 mg/dl (8.4-10.2); Carbon Dioxide 24 mmol/L (22-30); Chloride 103 mmol/L (98-107); Estimated Creatinine Clearance > 125 ml/min; Glucose 109 mg/dl (70-99); Potassium 4.5 mmol/L (3.5-5.1); Sodium 135 mmol/L (135-145); eGFR > 60.00
--- NOTE | 2024-07-26 07:44 | PHA.VAN.FU ---
Vancomycin Assessment / Plan
- Assessment
Renal Function: Stable
WBC's are: Trending Down
In the past 24 hrs, patient has been: Afebrile
Concomitant Antimicrobials: ancef
- Assessment - Therapeutic Drug Monitoring
Extrapolated Cmax (mcg/mL): 22.7
Peak level was drawn: Appropriately
Extrapolated Cmin (mcg/mL): 9.8
Trough Drawn: Appropriately
Levels were drawn: At steady state
Calculated AUC (mcg*h/mL): 372
Calculated ke: 0.0799
Calculated half life (H): 8.7
Calculated Vd (L): 100.73
Calculated Vanc CL (ml/min): 134.22
- Dosing Plan
Adjust Regimen to: 1750mg q12h
New Regimen Predicts: AUC (469), Peak (28.2), Trough (12.7)
- Monitoring Plan
No level(s) ordered at this time: consider at steady state
- Follow Up
Pharmacy will continue to follow.
Vancomycin Follow UP
- -
Patient Age: 64
Patient Sex: Male
Vancomycin Day #: 5
Indication: Bone And Joint
Requesting Provider: Fam Bansal
Pertinent Antimicrobial Allergies:
NKDA
Height / Weight:
Height 5 ft 9 in
Actual Weight 109.486 kg
Pertinent Past Medical History: BMI ~35
- Vital Signs / Lab Results
Temp Pulse Resp BP Pulse Ox
97.7 F 76 16 113/59 97
07/25/24 23:45 07/25/24 23:45 07/25/24 23:45 07/25/24 23:45 07/25/24 23:45
Lab Results - Hematology
07/23/24 07/24/24 07/25/24
07:32 07:25 08:20
WBC 16.6 H 11.8 H 11.9 H
07/26/24
06:08
WBC 9.7
Lab Results - Chemistry
07/23/24 07/24/24 07/25/24
07:32 07:25 08:20
BUN 12 13 11
Creatinine 0.6 L 0.7 0.6 L
Estimated Creat Clear > 125 > 125 > 125
07/26/24
06:08
BUN 12
Creatinine 0.6 L
Estimated Creat Clear > 125
Microbiology Results
07/24/24 07:25 Blood Culture - Preliminary
Blood/Venous No Growth in 48 hours- Final report to follow
07/22/24 20:15 Blood Culture - Preliminary
Blood/Venous Staphylococcus aureus
Gram Stain - Preliminary
07/22/24 20:15 Wound Culture - Preliminary
Leg - Right Staphylococcus aureus
Gram Stain - Preliminary
07/22/24 23:19 Blood Culture - Preliminary
Blood/Venous No Growth in 72 hours- Final report to follow
07/24/24 08:24 Blood Culture - Preliminary
Blood/Venous No Growth in 24 hours- Final report to follow
07/22/24 20:15 Anaerobic Culture - Preliminary
Wound-Deep Culture pending. Anaerobic cultures are examined after 3
days incubation. Additional information to follow.
07/22/24 18:01 MRSA Screen - Final
Nose No Methicillin Resistant Staphylococcus aureus isolated.
Therapeutic Drug Monitoring
Vancomycin Peak 19.7 ug/ml (18-26) 07/25/24 21:27
Vancomycin Trough 10.2 ug/ml (5-20) 07/26/24 05:41
[2024-07-26] MEDS: SENOKOT 17.2 MG PO (07:50)
[2024-07-26] MEDS: CELEBREX 100 MG PO ×2 (07:50→20:21)
[2024-07-26] MEDS: COLACE 200 MG PO (07:50)
[2024-07-26] MEDS: ASPIRIN 325 MG PO (07:50)
[2024-07-26] MEDS: ANCEF 10 IV ×3 (07:50→23:21)
[2024-07-26 08:00] VITALS: BP 136/83
[2024-07-26 09:26] LABS: Erythrocyte Sed Rate 89 mm/hour (0-20)
--- NOTE | 2024-07-26 10:17 | W.PN.ORTHO ---
Today's Communication / Plan
-
POD #4 s/p right leg I&D s/p quad tendon repair on 06/26/24
Right knee Post op brace in place at all times
-DVT PPX ASA 325mg daily x30 days unless recommended otherwise per primary
-Right lower extremity splint in place at all times. Repeat x-rays show stable appearance. May transition to CAM boot on RLE. Order placed
-Once boot applied, may WBAT on RLE with walker/crutches. Will get PT/OT consulted to help with progression of WB.
-In regards to quad tendon repair, he may WBAT with brace locked in extension.
-Ice with elevation to control swelling and pain
-IV abx per ID. Cultures growing MSSA.
-Close observation for now�patient may require repeat I&D, so will make NPO after midnight in event repeat washout needed.
-New dressing applied.
-Will order repeat CRP and ESR for tomorrow am.
-Appreciate medical teams efforts
Assessment
.
Distal Motor Intact: Yes
Dressing:
Clean, dry and intact.
Assessment:
POD #4 s/p right leg I&D s/p quad tendon repair on 06/26/24
Right knee Post op brace in place at all times
-DVT PPX ASA 325mg daily x30 days unless recommended otherwise per primary
-Right lower extremity splint in place at all times. Repeat x-rays show stable appearance. May transition to CAM boot on RLE. Order placed
-Once boot applied, may WBAT on RLE with walker/crutches. Will get PT/OT consulted to help with progression of WB.
-In regards to quad tendon repair, he may WBAT with brace locked in extension.
-Ice with elevation to control swelling and pain
-IV abx per ID. Cultures growing MSSA.
-Close observation for now�patient may require repeat I&D, so will make NPO after midnight in event repeat washout needed.
-New dressing applied.
-Will order repeat CRP and ESR for tomorrow am.
-Appreciate medical teams efforts
Plan
.
Surgery / Date: R knee I & D 07/22 [facility]
DVT Prophylaxis: Aspirin
Activity:
Out of bed.
PT/OT
Subjective
.
.:
Patient resting comfortably in bed on my arrival. Did have some discomfort overnight, but pain has been controlled with oxycodone and celebrex.
Vital Signs and Labs
.
Vital Signs and Labs:
Lab Results
07/26/24 06:08
07/26/24 06:08
Temp Pulse Resp BP Pulse Ox
98.0 F 78 16 136/83 96
07/26/24 08:00 07/26/24 08:00 07/26/24 08:00 07/26/24 08:00 07/26/24 08:00
ESR today 89 (up from 86 on 07/24, 81 on 07/23)
CRP down to 32.20 today (39.90 on 07/25, 52.10 on 07/24, 123.30 on 07/23).
Initial blood cultures and intra-op cultures growing MSSA. Most recent blood cultures negative.
Physical Exam
-
Right knee: Abds taken down. Moderate sangunious drainage from proximal incision. No gross purulence noted, none expressed. No areas of fluctuance. Swelling mildly improved. Mild TTP diffusely. ROM not tested.
X-rays of right ankle from 07/25/24 show stable appearance of hardware, no loss of fracture reduction or hardware failure.
--- NOTE | 2024-07-26 11:25 | W.PN.HOSP.TC ---
Today's Communication/Plan
-
Continue IV cefazolin
Will confirm with ID about discontinuing Vancomycin
N.p.o. after midnight in case OR needed tomorrow
Trend CBC, T, inflammatory markers
Analgesics
Weightbearing per Ortho
Assessment / Plan
Assessment / Plan
#MSSA bacteremia
#Postoperative infection of RLE
#Recent ORIF of right ankle and right quadratus tendon repair
-Was seen in office by orthopedics on 07/22, noted purulence from the wound
-Sent to the ED at that time, went to the OR evening of 07/22 for I&D, debridement
-Cultures taken, started on broad-spectrum antibiotics with IV vancomycin and Zosyn
-Blood and OR cultures returning positive for Staph aureus, final results with MSSA
-Has remained hemodynamically stable, no fevers this morning
-ID following, narrowed antibiotics to vancomycin and cefazolin
Plan
-Can likely de-escalate antibiotics to IV cefazolin alone, DC vancomycin
-Continue aspirin 325 mg for DVT prophylaxis
-Follow cultures for sensitivities, trend CBC and temp
-PRN analgesics and antiemetic
-Spot in OR held for Saturday in the event he needs further intervention
#Obstructive sleep apnea
-Uses home CPAP at 8 mmHg, brought in his unit
-No known pulmonary hypertension or RV dysfunction
#Essential hypertension
-Home regimen includes lisinopril
-No known history of hypertensive systemic disease
-Blood pressure here well-controlled
#H/O depression
-Continue with home Remeron
DVT prophylaxis: SCDs
Diet: Regular
CODE STATUS: Full code
Anticipated Discharge: > 48 hours
Subjective/Interval History
-
Date of Service: July 26, 2024
Seen and examined at the bedside. No acute events reported overnight. AFVSS as of this morning
ESR remains elevated though CRP continues to downtrend. Patient states his leg feels well, no worsening pain, no fevers
Denies any new complaints as of this morning. N.p.o. at midnight for potential OR tomorrow
Objective Data
-
Labs:
Laboratory Results
07/26/24
06:08
WBC 9.7
Hgb 9.3 L
Hct 27.4 L
Plt Count 550 H
Sodium 135
Potassium 4.5
Chloride 103
Carbon Dioxide 24
BUN 12
Creatinine 0.6 L
Glucose 109 H
Calcium 8.6
Vital Signs:
Vital Signs
Temp Pulse Resp BP Pulse Ox
98.0 F 78 16 136/83 96
07/26/24 08:00 07/26/24 08:00 07/26/24 08:00 07/26/24 08:00 07/26/24 08:00
I&O
07/25/24 07/26/24 07/27/24
06:59 06:59 06:59
Intake Total 1840 / 1840 960 / 960
Output Total 2870 / 2870 1550 / 1550
Balance -1030 / -1030 -590 / -590
Review of Systems
-
History Source: Patient
All other systems: Reviewed and negative
Physical Exam
-
General: Well Developed, No Apparent Distress, Comfortable and Obese
HEENT: Normocephalic, Atraumatic and Moist Mucous Membranes
Respiratory: Clear to Auscultation and Non Labored Respirations
Cardiac: Regular Rhythm and S1/S2; Negative Murmur, Rub or Gallop
GI: Soft, Nontender, Nondistended and Normal Bowel Sounds
Musculoskeletal: No Clubbing, No Cyanosis, No Edema and Other (Right lower extremity bandaging and brace in place)
Skin: Warm, Dry and Normal Turgor; Negative Rash
Neuro: AO x 3 and Nonfocal/Grossly Intact
Psych: Calm
Data Reviewed
-
Labs: Labs Reviewed by me and Discussed with Patient
[2024-07-26 16:15] VITALS: BP 130/72
[2024-07-26 16:55] VITALS: BP 126/77; PULSE 83; O2SAT 98
[2024-07-26] MEDS: ZESTRIL 20 MG PO (17:00)
[2024-07-26] MEDS: REMERON 15 MG PO (17:01)
[2024-07-26] MEDS: ZOLOFT 100 MG PO (17:01)
[2024-07-26] MEDS: COLACE PO (20:36)
[2024-07-26] MEDS: SENOKOT PO (20:36)
[2024-07-26 23:44] VITALS: BP 114/74
[2024-07-27] VITALS (12 sets, daily range): BP systolic 119–139; BP diastolic 71–94; BMI 35.8
[2024-07-27] MEDS: COLACE PO (07:55)
[2024-07-27] MEDS: ASPIRIN PO (07:55)
[2024-07-27] MEDS: ANCEF 10 IV ×2 (07:55→23:44)
[2024-07-27] MEDS: SENOKOT PO (07:55)
[2024-07-27] MEDS: CELEBREX 100 MG PO ×2 (07:55→20:00)
[2024-07-27 08:17] LABS: % Basophils 0.4 % (0-2); % Eosinophils 2.5 % (0-6); % Immature Granulocytes 2.1 % (0-0.5); % Lymphocytes 14.8 % (20.5-51.1); % Monocytes 6.2 % (1.7-9.3); Absolute Eosinophils 0.2 10^3/uL (0-0.7); Absolute Immature Granulocytes 0.2 10^3/uL (0-0.05); Absolute Lymphocytes 1.4 10^3/uL (1.2-3.4); Absolute Monocytes 0.6 10^3/uL (0.1-0.6); Hematocrit 30.1 % (39.0-52.0); Hemoglobin 9.6 g/dL (13.0-18.0); Mean Corp Hgb Conc. 31.9 g/dL (33.0-37.0); Mean Corpuscular Hgb 28.7 pg (27.0-31.0); Mean Corpuscular Volume 89.9 fL (80.0-94.0); Mean Platelet Volume 8.4 fL (7.4-10.4); Nucleated Red Blood Cells % 0 % (-); Platelet Count 554 10^3/uL (130-400); Red Blood Cell Count 3.35 10^6/uL (4.70-6.10); White Blood Cell Count 9.4 10^3/uL (4.8-10.8)
[2024-07-27 08:33] LABS: Erythrocyte Sed Rate 77 mm/hour (0-20)
[2024-07-27 08:50] LABS: Blood Urea Nitrogen 12 mg/dl (9-20); Calcium 8.9 mg/dl (8.4-10.2); Carbon Dioxide 23 mmol/L (22-30); Chloride 103 mmol/L (98-107); Estimated Creatinine Clearance > 125 ml/min; Glucose 100 mg/dl (70-99); Potassium 4.5 mmol/L (3.5-5.1); Sodium 133 mmol/L (135-145); eGFR > 60.00
--- NOTE | 2024-07-27 08:58 | W.PN.UPDATE ---
Update Note
Progress Note Update
POD #5 s/p right leg I&D s/p quad tendon repair on Jun 27 ([facility]). Also with right ankle ORIF same day ([facility])
Currently Afeb this AM. WBC WNL.
Right knee incision loosely approximated with Nylon sutures. NO active drainage from the incision at this time
Right knee Post op brace in place at all times
-DVT PPX ASA 325mg daily x 30 days unless recommended otherwise per primary
-Right lower extremity splint in place at all times. Repeat x-rays show stable appearance. Order was placed for CAM boot RLE.
-May WBAT on RLE with walker/crutches. Will get PT/OT consulted to help with progression of WB.
-In regards to quad tendon repair, he may WBAT with brace locked in extension.
-Ice with elevation to control swelling and pain
-IV abx per ID. Cultures growing MSSA.
-Close observation for now. Dr. Darnell to also see patient later today, and based on clinical exam and ESR/CRP results may elect to proceed with repeat I&D. Patient should remain NPO
-Dressings to shoulder remain for now
-Appreciate medical teams efforts, continue Tx
UPDATE TO AM ROUNDS:
CRP 32-->19.6 (today)
ESR 89-->77 (today)
Surgical and blood consents have been signed for a right thigh/knee I&D a bit later today under the direction of Dr. Darnell. Patient should remain NPO.
--- NOTE | 2024-07-27 13:48 | CM ---
TC from [facility], called to offer assistance with d/c planning if needed, phone number [phone].
--- NOTE | 2024-07-27 14:44 | W.PN.HOSP.TC ---
Today's Communication/Plan
-
Awaiting possible orthopedic intervention
Continue IV antibiotics
Assessment / Plan
Assessment / Plan
#MSSA bacteremia
#Postoperative infection of RLE
#Recent ORIF of right ankle and right quadratus tendon repair
-Was seen in office by orthopedics on 07/22, noted purulence from the wound
-Sent to the ED at that time, went to the OR evening of 07/22 for I&D, debridement
-Cultures taken, started on broad-spectrum antibiotics with IV vancomycin and Zosyn
-Blood and OR cultures returning positive for Staph aureus, final results with MSSA
-Has remained hemodynamically stable, no fevers this morning
-ID following, narrowed antibiotics to vancomycin and cefazolin
Plan
-Can likely de-escalate antibiotics to IV cefazolin alone, DC vancomycin
-Continue aspirin 325 mg for DVT prophylaxis
-Follow cultures for sensitivities, trend CBC and temp
-PRN analgesics and antiemetic
-Spot in OR held for Saturday in the event he needs further intervention
#Obstructive sleep apnea
-Uses home CPAP at 8 mmHg, brought in his unit
-No known pulmonary hypertension or RV dysfunction
#Essential hypertension
-Home regimen includes lisinopril
-No known history of hypertensive systemic disease
-Blood pressure here well-controlled
#H/O depression
-Continue with home Remeron
DVT prophylaxis: SCDs
Diet: Regular
CODE STATUS: Full code
Anticipated Discharge: 24 - 48 hours
Subjective/Interval History
-
Date of Service: July 27, 2024
No acute events overnight
Objective Data
-
Labs:
Laboratory Results
07/27/24
07:06
WBC 9.4
Hgb 9.6 L
Hct 30.1 L
Plt Count 554 H
Sodium 133 L
Potassium 4.5
Chloride 103
Carbon Dioxide 23
BUN 12
Creatinine 0.6 L
Glucose 100 H
Calcium 8.9
Vital Signs:
Vital Signs
Temp Pulse Resp BP Pulse Ox
98.3 F 74 20 121/77 97
07/27/24 07:26 07/27/24 07:26 07/27/24 07:26 07/27/24 07:26 07/27/24 08:15
I&O
07/26/24 07/27/24 07/28/24
06:59 06:59 06:59
Intake Total 960 / 960 420 / 420
Output Total 1550 / 1550 1700 / 1700
Balance -590 / -590 -1280 / -1280
Review of Systems
-
History Source: Patient
All other systems: Not reviewed unless documented
Physical Exam
-
General: Well Developed, No Apparent Distress, Comfortable and Obese
HEENT: Normocephalic, Atraumatic and Moist Mucous Membranes
Respiratory: Clear to Auscultation and Non Labored Respirations
Cardiac: Regular Rhythm and S1/S2; Negative Murmur, Rub or Gallop
GI: Soft, Nontender, Nondistended and Normal Bowel Sounds
Musculoskeletal: No Clubbing, No Cyanosis, No Edema and Other (Right lower extremity bandaging and brace in place)
Skin: Warm, Dry and Normal Turgor; Negative Rash
Neuro: AO x 3 and Nonfocal/Grossly Intact
Psych: Calm
Data Reviewed
-
Labs: Labs Reviewed by me and Discussed with Patient
--- NOTE | 2024-07-27 15:28 | CM ---
Chart reviewed including patient progress with physical therapy, recommendation is for home with home care, patient has been set up with [facility].
Plan; Home with [facility] when stable.
[2024-07-27] MEDS: ANCEF IV (16:20)
[2024-07-27] MEDS: NSS 1000 IV (17:00)
[2024-07-27] MEDS: NEURONTIN 100 MG PO (17:00)
[2024-07-27] MEDS: TYLENOL 650 MG PO (17:01)
[2024-07-27] MEDS: ZESTRIL 20 MG PO (18:21)
[2024-07-27] MEDS: ZOLOFT 100 MG PO (18:21)
[2024-07-27] MEDS: REMERON 15 MG PO (18:21)
--- NOTE | 2024-07-27 18:26 | PTCARENOTE ---
Pt arrived to 2S in bed. Full assessment completed. RLE maintained in locked brace and kendal wrap. Pt able to wiggle toes to RLE. DP palpable B/L. IVF infusing per order. PM medications provided. Pt denies pain at this time. Pt instructed to ring for
assistance getting OOB, verbalized understanding. Bed locked and in the lowest position, safety maintained. Oriented to room and call reynoso.
[2024-07-27] MEDS: COLACE 200 MG PO (20:00)
[2024-07-27] MEDS: SENOKOT 17.2 MG PO (20:01)
[2024-07-27] MEDS: ROXICODONE 10 MG PO (22:27)
[2024-07-28 03:00] VITALS: BP 115/61
[2024-07-28] MEDS: NSS IV ×2 (06:03→16:09)
[2024-07-28 07:01] LABS: Hemoglobin 9.3 g/dL (13.0-18.0); Mean Corp Hgb Conc. 32.1 g/dL (33.0-37.0); Mean Corpuscular Hgb 28.9 pg (27.0-31.0); Mean Corpuscular Volume 90.1 fL (80.0-94.0); Mean Platelet Volume 8.2 fL (7.4-10.4); Platelet Count 572 10^3/uL (130-400); Red Blood Cell Count 3.22 10^6/uL (4.70-6.10); Red Cell Dist. Width 14.3 % (11.5-14.5); White Blood Cell Count 15.3 10^3/uL (4.8-10.8)
[2024-07-28 07:06] VITALS: BP 102/69
[2024-07-28 07:26] LABS: ALT (SGPT) 70 U/L (0-50); AST (SGOT) 36 U/L (17-59); Albumin 2.9 g/dl (3.5-5.0); Alkaline Phosphatase 90 U/L (38-126); Blood Urea Nitrogen 16 mg/dl (9-20); Calcium 8.8 mg/dl (8.4-10.2); Carbon Dioxide 22 mmol/L (22-30); Chloride 103 mmol/L (98-107); Estimated Creatinine Clearance > 125 ml/min; Glucose 132 mg/dl (70-99); Potassium 4.6 mmol/L (3.5-5.1); Sodium 134 mmol/L (135-145); Total Bilirubin 0.4 mg/dl (0.2-1.3); Total Protein 5.7 g/dl (6.3-8.2); eGFR > 60.00
--- NOTE | 2024-07-28 07:27 | W.PN.UPDATE ---
Update Note
Progress Note Update
64-year-old male POD #1 incision and drainage, right thigh wound performed on 07/27/[address] Darnell. S/p right leg I&D 07/22/2024. S/p quad tendon repair 4 Jun 27 ([facility]). Also with right ankle ORIF same day ([facility]). Patient
resting comfortably on my arrival this AM.
Right knee Post-op brace in place (locked in extension) at all times
- DVT PPX ASA 325mg daily x 30 days unless recommended otherwise per primary.
- Right lower extremity splint in place at all times. Repeat x-rays show stable appearance. Order was placed for CAM boot RLE.
- May WBAT on RLE with walker/crutches. Will get PT/OT consulted to help with progression of WB.
- In regards to quad tendon repair, he may WBAT with brace locked in extension.
- Ice with elevation to control swelling and pain
- IV abx per ID. Cultures growing MSSA.
- CRP 32 (07/26) -->19.6 (07/27). ESR 89 (07/26) -->77 (07/27).
- Appreciate medical teams efforts, continue Tx.
- Orthopedic surgery will continue to follow.
[2024-07-28] MEDS: ANCEF 10 IV ×2 (08:40→15:58)
[2024-07-28] MEDS: SENOKOT 17.2 MG PO ×2 (08:41→20:14)
[2024-07-28] MEDS: CELEBREX 100 MG PO ×2 (08:41→20:14)
[2024-07-28] MEDS: FLUSH (NSS) 2 FLUSH IV ×2 (08:41→15:58)
[2024-07-28] MEDS: ASPIRIN 325 MG PO (08:41)
[2024-07-28] MEDS: COLACE 200 MG PO ×2 (08:41→20:15)
--- NOTE | 2024-07-28 11:51 | CM ---
Addendum entered by Sybil Price 07/28/24 15:41:
Pt will need IV antibiotics x's 2 weeks
Discussed with pt - no preference
Clinicals and infusion sheet faxed to [facility] [phone] Aleida updated
Plan - anticipate home with home infusion/HH when medically stable
Original Note:
Chart reviewed. Met with pt
PT recs - [facility]. Pt to go home with [facility]
Plan - anticipate home with [facility] when medically ready
[2024-07-28 12:27] VITALS: BP 118/78; BP 163/87; PULSE 77; O2SAT 97
[2024-07-28] MEDS: NEURONTIN 100 MG PO (13:02)
[2024-07-28] MEDS: TYLENOL 650 MG PO (13:02)
[2024-07-28 13:19] VITALS: BP 120/76; PULSE 73; O2SAT 97
--- NOTE | 2024-07-28 13:30 | W.PN.HOSP.TC ---
Today's Communication/Plan
-
cont cefazolin
await final recs from Ortho
Assessment / Plan
Assessment / Plan
#MSSA bacteremia
#Postoperative infection of RLE
#Recent ORIF of right ankle and right quadratus tendon repair
#Incision and drainage, right thigh wound performed on 07/27/2024
-went to the OR evening of 07/22 for I&D, debridement
-Cultures taken, started on broad-spectrum antibiotics with IV vancomycin and Zosyn
-Blood and OR cultures returning positive for Staph aureus, final results with MSSA
-Has remained hemodynamically stable, no fevers this morning
-ID following, narrowed antibiotics to vancomycin and cefazolin
Plan
-Can likely de-escalate antibiotics to IV cefazolin alone, DC vancomycin
-Continue aspirin 325 mg for DVT prophylaxis x 30 days
- CAM boot RLE
-Follow cultures for sensitivities, trend CBC and temp
-PRN analgesics and antiemetic
-Elevated WBC - went up probably 07/05 to surgery - monitor wbc and fever curve
-May WBAT on RLE with walker/crutches; In regards to quad tendon repair, he may WBAT with brace locked in extension
-Ice with elevation to control swelling and pain
#Obstructive sleep apnea
-Uses home CPAP at 8 mmHg, brought in his unit
-No known pulmonary hypertension or RV dysfunction
#Essential hypertension
-Home regimen includes lisinopril
-No known history of hypertensive systemic disease
-Blood pressure here well-controlled
#Hyponatremia
-mild
-monitor
#H/O depression
-Continue with home Remeron
DVT prophylaxis: ASA
Diet: Regular
CODE STATUS: Full code
Anticipated Discharge: 24 - 48 hours
Subjective/Interval History
-
Date of Service: July 28, 2024
Incision and drainage, right thigh wound performed on 07/27/2024
Objective Data
-
Labs:
Laboratory Results
07/28/24
05:39
WBC 15.3 H
Hgb 9.3 L
Hct 29.0 L
Plt Count 572 H
Sodium 134 L
Potassium 4.6
Chloride 103
Carbon Dioxide 22
BUN 16
Creatinine 0.6 L
Glucose 132 H
Calcium 8.8
Total Bilirubin 0.4
AST 36
ALT 70 H
Alkaline Phosphatase 90
Vital Signs:
Vital Signs
Temp Pulse Resp BP Pulse Ox
97.7 F 76 16 102/69 96
07/28/24 07:06 07/28/24 07:06 07/28/24 07:06 07/28/24 07:06 07/28/24 11:09
I&O
07/27/24 07/28/24 07/29/24
06:59 06:59 06:59
Intake Total 420 / 420 1590 / 1590
Output Total 1700 / 1700 1225 / 1225
Balance -1280 / -1280 365 / 365
Review of Systems
-
History Source: Patient
All other systems: Not reviewed unless documented
Physical Exam
-
General: Well Developed, No Apparent Distress, Comfortable and Obese
HEENT: Normocephalic, Atraumatic and Moist Mucous Membranes
Respiratory: Clear to Auscultation and Non Labored Respirations
Cardiac: Regular Rhythm and S1/S2; Negative Murmur, Rub or Gallop
GI: Soft, Nontender, Nondistended and Normal Bowel Sounds
Musculoskeletal: No Clubbing, No Cyanosis, No Edema and Other (Right lower extremity bandaging and brace in place)
Skin: Warm, Dry and Normal Turgor; Negative Rash
Neuro: AO x 3 and Nonfocal/Grossly Intact
Psych: Calm
Data Reviewed
-
Labs: Labs Reviewed by me and Discussed with Patient
--- NOTE | 2024-07-28 14:16 | W.PN.ID1 ---
Date of Service
Date of Service: July 28, 2024
Today's Communication
Continue antibiotics. See below�
Assessment / Plan
Right leg abscess; s/p I&D
Staph aureus bacteremia; cleared
Leukocytosis
Fevers
Elevated ESR and CRP
DENILSON
Hx vestibular neuroma
HTN
Recommendations:
Repeat blood cultures - no growth to date
Echocardiogram - no valvular lesions
Continue cefazolin. Would anticipate an additional 2 weeks of therapy.
Prescription placed on paper chart.
Okay to place midline.
Will follow-up in the office.
����������������������������������������������������������
Chief Complaint
-: Other (pyomyositis, s aureus bacteremia)
Subjective / Review of Systems
Patient seen and examined. Overall feels well. Denies fevers or chills. No difficulty with antibiotics at present.
Review of Systems: No Fever and No Chills
Vital Signs / Physical Exam
Vital Signs
Vital Signs
Temp Pulse Resp BP Pulse Ox
97.7 F 76 16 102/69 96
07/28/24 07:06 07/28/24 07:06 07/28/24 07:06 07/28/24 07:06 07/28/24 11:09
Physical Exam
Constitutional: No Acute Distress, Comfortable and Non-toxic
Eyes: Sclera Anicteric
Cardiovascular: S1/S2; Negative S3/S4
Pulmonary: Non Labored
Gastrointestinal: Soft and Non Tender
Extremities: Other (Right leg dressed.)
Neurological: Awake and Alert
Psychological: Calm
Objective Data
Lab Data
Lab Results
07/28/24 05:39
07/28/24 05:39
ESR 77 mm/hour (0-20) H 07/27/24 07:06
Estimated Creat Clear > 125 ml/min 07/28/24 05:39
Total Bilirubin 0.4 mg/dl (0.2-1.3) 07/28/24 05:39
AST 36 U/L (17-59) 07/28/24 05:39
ALT 70 U/L (0-50) H 07/28/24 05:39
Alkaline Phosphatase 90 U/L (38-126) 07/28/24 05:39
C-Reactive Protein 19.60 mg/L (0.0-10.00) H 07/27/24 07:06
Most recent labs reviewed.
Micro Results:
07/22/24 20:15 Anaerobic Culture - Final
Wound-Deep NO ANAEROBES ISOLATED
07/22/24 20:15 Wound Culture - Final
Leg - Right S aureus-Methicillin Sensitive
Gram Stain - Final
07/24/24 08:24 Blood Culture - Preliminary
Blood/Venous No Growth in 4 days- Final report to follow
07/24/24 07:25 Blood Culture - Preliminary
Blood/Venous No Growth in 4 days- Final report to follow
07/22/24 23:19 Blood Culture - Final
Blood/Venous No Growth - Final Report
07/22/24 20:15 Blood Culture - Final
Blood/Venous S aureus-Methicillin Sensitive
Gram Stain - Final
07/22/24 18:01 MRSA Screen - Final
Nose No Methicillin Resistant Staphylococcus aureus isolated.
Care Review
Plan reviewed with: Physician (Orthopedics)
[2024-07-28 15:10] VITALS: BP 110/68
[2024-07-28] MEDS: ZOLOFT 100 MG PO (17:51)
[2024-07-28] MEDS: REMERON 15 MG PO (17:51)
[2024-07-28] MEDS: ZESTRIL PO (17:51)
[2024-07-28] MEDS: ROXICODONE 10 MG PO (20:37)
[2024-07-28 23:00] VITALS: BP 119/70
[2024-07-29] MEDS: ANCEF 10 IV ×3 (00:20→15:17)
[2024-07-29] MEDS: ROXICODONE 5 MG PO ×2 (05:29→09:57)
[2024-07-29 05:41] VITALS: BMI 35.4
[2024-07-29 06:33] LABS: Hematocrit 29.2 % (39.0-52.0); Hemoglobin 9.6 g/dL (13.0-18.0); Mean Corp Hgb Conc. 32.9 g/dL (33.0-37.0); Mean Corpuscular Hgb 29.4 pg (27.0-31.0); Mean Corpuscular Volume 89.3 fL (80.0-94.0); Mean Platelet Volume 8.5 fL (7.4-10.4); Platelet Count 555 10^3/uL (130-400); Red Blood Cell Count 3.27 10^6/uL (4.70-6.10); Red Cell Dist. Width 14.6 % (11.5-14.5); White Blood Cell Count 11.3 10^3/uL (4.8-10.8)
[2024-07-29 07:07] LABS: ALT (SGPT) 72 U/L (0-50); AST (SGOT) 45 U/L (17-59); Albumin 3.6 g/dl (3.5-5.0); Alkaline Phosphatase 90 U/L (38-126); Blood Urea Nitrogen 18 mg/dl (9-20); Carbon Dioxide 22 mmol/L (22-30); Chloride 102 mmol/L (98-107); Estimated Creatinine Clearance > 125 ml/min; Glucose 92 mg/dl (70-99); Potassium 4.7 mmol/L (3.5-5.1); Sodium 136 mmol/L (135-145); Total Bilirubin 0.6 mg/dl (0.2-1.3); Total Protein 6.5 g/dl (6.3-8.2); eGFR > 60.00
--- NOTE | 2024-07-29 07:17 | W.PN.UPDATE ---
Update Note
Progress Note Update
Mr. Sargent in is POD2 incision and drainage, right thigh wound performed on 07/27/2024 under the direction of Dr. Darnell. He is resting comfortably in bed this morning, and denies any significant pain at present. His splint remains in place to the
right ankle.
Directed exam of right lower extremity reveals surgical incision over knee well approximated with suture. Hue of erythema, but no drainage or dehiscence. ABDs overlying the incision with only a small amount of dried blood. ROM deferred. Calf soft
and nontender. Splint removed from ankle to reveal edema and ecchymosis about the ankle. Well healed surgical incisions. Sensation intact to light touch. Palpable dp and pt pulses.
WBC trending down, 15.3-->11.3
Hgb 9.6 this AM.
64-year-old male POD 21 incision and drainage, right thigh wound performed on 07/27/[address] Darnell. S/p right leg I&D 07/22/2024. S/p quad tendon repair 4 Jun 27 ([facility]). Also with right ankle ORIF same day ([facility]). Patient
resting comfortably on my arrival this AM.
Right knee Post-op brace in place (locked in extension) at all times
--In regards to quad tendon repair, he may WBAT with brace locked in extension.
--Patient transitioned into tall CAM boot this morning, with hinged knee brace locked in extension. May WBAT on RLE with walker/crutches. Will get PT/OT consulted to help with progression of WB.
--DVT PPX ASA 325mg daily x 30 days unless recommended otherwise per primary.
--Pain control prn. Ice with elevation to control swelling and pain.
--IV abx per ID, currently cefazolin. Cultures growing MSSA.
- CRP 32 (07/26) -->19.6 (07/27). ESR 89 (07/26) -->77 (07/27).
- Appreciate medical teams efforts, continue Tx.
- Orthopedic surgery will continue to follow.
[2024-07-29 07:20] VITALS: BP 120/77
[2024-07-29] MEDS: SENOKOT 17.2 MG PO ×2 (08:52→20:51)
[2024-07-29] MEDS: ASPIRIN 325 MG PO (08:52)
[2024-07-29] MEDS: COLACE 200 MG PO ×2 (08:52→20:51)
[2024-07-29] MEDS: CELEBREX 100 MG PO ×2 (08:52→20:51)
[2024-07-29 11:55] VITALS: BP 131/84; PULSE 85; O2SAT 97
--- NOTE | 2024-07-29 13:40 | W.PN.HOSP.TC ---
Today's Communication/Plan
-
iv abx - will need picc and iv abx upon dc
ortho recs
Assessment / Plan
Assessment / Plan
#MSSA bacteremia
#Postoperative infection of RLE
#Recent ORIF of right ankle and right quadratus tendon repair
#Incision and drainage, right thigh wound performed on 07/27/2024
-went to the OR evening of 07/22 for I&D, debridement
-Cultures taken, started on broad-spectrum antibiotics with IV vancomycin and Zosyn
-Blood and OR cultures returning positive for Staph aureus, final results with MSSA
-Has remained hemodynamically stable, no fevers this morning
-ID following, narrowed antibiotics to vancomycin and cefazolin
Plan
antibiotics to IV cefazolin, DC vancomycin
-Continue aspirin 325 mg for DVT prophylaxis x 30 days
- CAM boot RLE
-Follow cultures for sensitivities, trend CBC and temp
-PRN analgesics and antiemetic
-Elevated WBC - went up probably 07/05 to surgery - monitor wbc and fever curve
-May WBAT on RLE with walker/crutches; In regards to quad tendon repair, he may WBAT with brace locked in extension
-Ice with elevation to control swelling and pain
#Obstructive sleep apnea
-Uses home CPAP at 8 mmHg, brought in his unit
-No known pulmonary hypertension or RV dysfunction
#Essential hypertension
-Home regimen includes lisinopril
-No known history of hypertensive systemic disease
-Blood pressure here well-controlled
#Hyponatremia
-mild
-monitor
#H/O depression
-Continue with home Remeron
DVT prophylaxis: ASA
Diet: Regular
CODE STATUS: Full code
Anticipated Discharge: 24 - 48 hours
Subjective/Interval History
-
Date of Service: July 29, 2024
No acute events
Objective Data
-
Labs:
Laboratory Results
07/29/24
05:16
WBC 11.3 H
Hgb 9.6 L
Hct 29.2 L
Plt Count 555 H
Sodium 136
Potassium 4.7
Chloride 102
Carbon Dioxide 22
BUN 18
Creatinine 0.6 L
Glucose 92
Calcium 9.0
Total Bilirubin 0.6
AST 45
ALT 72 H
Alkaline Phosphatase 90
Vital Signs:
Vital Signs
Temp Pulse Resp BP Pulse Ox
98.1 F 75 16 120/77 95
07/29/24 07:20 07/29/24 07:20 07/29/24 07:20 07/29/24 07:20 07/29/24 07:20
I&O
07/28/24 07/29/24 07/30/24
06:59 06:59 06:59
Intake Total 1590 / 1590 1920 / 1920
Output Total 1225 / 1225 700 / 700
Balance 365 / 365 1220 / 1220
Review of Systems
-
History Source: Patient
All other systems: Not reviewed unless documented
Physical Exam
-
General: Well Developed, No Apparent Distress, Comfortable and Obese
HEENT: Normocephalic, Atraumatic and Moist Mucous Membranes
Respiratory: Clear to Auscultation and Non Labored Respirations
Cardiac: Regular Rhythm and S1/S2; Negative Murmur, Rub or Gallop
GI: Soft, Nontender, Nondistended and Normal Bowel Sounds
Musculoskeletal: No Clubbing, No Cyanosis, No Edema and Other (Right lower extremity bandaging and brace in place)
Skin: Warm, Dry and Normal Turgor; Negative Rash
Neuro: AO x 3 and Nonfocal/Grossly Intact
Psych: Calm
Data Reviewed
-
Labs: Labs Reviewed by me and Discussed with Patient
--- NOTE | 2024-07-29 14:25 | CM ---
Chart reviewed. Met with pt
Spoke with Aleida at [facility] - pt covered at 90% until deductible met ($6,300) - currently at $4000
Pt updated - ok with [facility]
Aleida updated
Will updates Aleida at [facility] when discharge date determined
Plan - home with [facility] for IV infusion and [facility] when medically ready
[2024-07-29 15:25] VITALS: BP 123/75
--- NOTE | 2024-07-29 15:42 | W.PN.ID1 ---
Date of Service
Date of Service: July 29, 2024
Today's Communication
Continue cefazolin.
Assessment / Plan
Right leg abscess; s/p I&D
Staph aureus bacteremia; cleared
Leukocytosis
Fevers
Elevated ESR and CRP
DENILSON
Hx vestibular neuroma
HTN
Recommendations:
Repeat blood cultures - no growth to date
Echocardiogram - no valvular lesions
Continue cefazolin. To complete 2 additional weeks of IV cefazolin (with option to extend, if necessary).
Prescription placed on paper chart.
Midline placed.
Will follow-up in the office.
����������������������������������������������������������
Chief Complaint
-: Other (pyomyositis, s aureus bacteremia)
Subjective / Review of Systems
Patient seen and examined. Overall feels well. Denies specific complaints at present.
Review of Systems: No Fever and No Chills
Vital Signs / Physical Exam
Vital Signs
Vital Signs
Temp Pulse Resp BP Pulse Ox
98.1 F 75 16 120/77 95
07/29/24 07:20 07/29/24 07:20 07/29/24 07:20 07/29/24 07:20 07/29/24 07:20
Physical Exam
Constitutional: No Acute Distress, Comfortable and Non-toxic
Eyes: Sclera Anicteric
Cardiovascular: S1/S2; Negative S3/S4
Pulmonary: Non Labored
Gastrointestinal: Soft and Non Tender
Extremities: Edema and Other (Right leg dressed in William wrap. Knee incision clean, dry and intact.)
Neurological: Awake and Alert
Psychological: Calm
Objective Data
Lab Data
Lab Results
07/29/24 05:16
07/29/24 05:16
ESR 77 mm/hour (0-20) H 07/27/24 07:06
Estimated Creat Clear > 125 ml/min 07/29/24 05:16
Total Bilirubin 0.6 mg/dl (0.2-1.3) 07/29/24 05:16
AST 45 U/L (17-59) 07/29/24 05:16
ALT 72 U/L (0-50) H 07/29/24 05:16
Alkaline Phosphatase 90 U/L (38-126) 07/29/24 05:16
C-Reactive Protein 19.60 mg/L (0.0-10.00) H 07/27/24 07:06
Most recent labs reviewed.
Micro Results:
07/24/24 08:24 Blood Culture - Final
Blood/Venous No Growth - Final Report
07/24/24 07:25 Blood Culture - Final
Blood/Venous No Growth - Final Report
07/22/24 20:15 Anaerobic Culture - Final
Wound-Deep NO ANAEROBES ISOLATED
07/22/24 20:15 Wound Culture - Final
Leg - Right S aureus-Methicillin Sensitive
Gram Stain - Final
07/22/24 23:19 Blood Culture - Final
Blood/Venous No Growth - Final Report
07/22/24 20:15 Blood Culture - Final
Blood/Venous S aureus-Methicillin Sensitive
Gram Stain - Final
07/22/24 18:01 MRSA Screen - Final
Nose No Methicillin Resistant Staphylococcus aureus isolated.
[2024-07-29] MEDS: REMERON 15 MG PO (17:13)
[2024-07-29] MEDS: ZESTRIL 20 MG PO (17:13)
[2024-07-29] MEDS: ZOLOFT 100 MG PO (17:13)
[2024-07-29] MEDS: ROXICODONE 10 MG PO (21:03)
[2024-07-29 23:15] VITALS: BP 102/72
[2024-07-30] MEDS: ANCEF 10 IV ×3 (00:26→15:06)
[2024-07-30 05:27] LABS: Hematocrit 27.7 % (39.0-52.0); Hemoglobin 9.1 g/dL (13.0-18.0); Mean Corp Hgb Conc. 32.9 g/dL (33.0-37.0); Mean Corpuscular Hgb 29.3 pg (27.0-31.0); Mean Corpuscular Volume 89.1 fL (80.0-94.0); Mean Platelet Volume 8.5 fL (7.4-10.4); Platelet Count 465 10^3/uL (130-400); Red Blood Cell Count 3.11 10^6/uL (4.70-6.10); Red Cell Dist. Width 14.8 % (11.5-14.5); White Blood Cell Count 8.7 10^3/uL (4.8-10.8)
[2024-07-30 05:42] LABS: ALT (SGPT) 53 U/L (0-50); AST (SGOT) 30 U/L (17-59); Alkaline Phosphatase 87 U/L (38-126); Blood Urea Nitrogen 14 mg/dl (9-20); Carbon Dioxide 26 mmol/L (22-30); Chloride 104 mmol/L (98-107); Estimated Creatinine Clearance > 125 ml/min; Glucose 96 mg/dl (70-99); Potassium 4.4 mmol/L (3.5-5.1); Sodium 137 mmol/L (135-145); Total Bilirubin 0.4 mg/dl (0.2-1.3); Total Protein 5.8 g/dl (6.3-8.2); eGFR > 60.00
[2024-07-30 06:36] VITALS: BMI 34.9
--- NOTE | 2024-07-30 07:28 | W.PN.ORTHO ---
Addendum entered and electronically signed by Flakito Guzman PA-C 08/02/24 11:51:
CDI response:
Patient underwent right knee/thigh irrigation and debridement July 22, 2024 and July 27, [address] Darnell. Procedure was deep to skin but anterior to the quadriceps tendon/muscle. There was no joint involvement.
Original Note:
Documented by User: Flakito Guzman PA-C 07/30/24 07:30
Today's Communication / Plan
-
PT/OT
Ice with elevation to control edema
Weightbearing as tolerated with walker
Righ Knee immobilizer locked in extension at all times
Splint right ankle when weightbearing
Suture removal 2 to 3 weeks postop
Antibiotics per ID
Likely home with visiting nurses
Assessment
.
Distal Motor Intact: Yes
Dressing:
Dressings removed and incision is clean, dry and intact. ABDs and new William wrap applied. Knee immobilizer locked in extension reapplied as well.
Plan
.
Surgery / Date: R knee I & D 07/22 [facility]
DVT Prophylaxis: Aspirin
Activity:
Out of bed.
PT/OT
Discharge Plan: Home w/ [facility]
Subjective
.
.:
Patient resting comfortably.
Vital Signs and Labs
.
Vital Signs and Labs:
Lab Results
07/30/24 04:48
07/30/24 04:47
Temp Pulse Resp BP Pulse Ox
98.1 F 74 16 102/72 97
07/29/24 23:15 07/29/24 23:15 07/29/24 23:15 07/29/24 23:15 07/29/24 23:15

Documented by User: Dimitry Darnell MD 08/01/24 10:39
Plan
.
Surgery / Date: R thigh I&D of SQ wound to level of Quad Tendon
[2024-07-30 08:15] VITALS: BP 109/62
[2024-07-30] MEDS: CELEBREX 100 MG PO (08:16)
[2024-07-30] MEDS: SENOKOT 17.2 MG PO (08:16)
[2024-07-30] MEDS: ASPIRIN 325 MG PO (08:16)
[2024-07-30] MEDS: COLACE 200 MG PO (08:16)
[2024-07-30] MEDS: ROXICODONE 10 MG PO (08:53)
--- NOTE | 2024-07-30 09:44 | CM ---
Addendum entered by Adrienne Ramos 07/30/24 11:22:
Met with patient; agreeable to discharge plan; will transport home
Original Note:
Per Attending, patient is stable for discharge today
CM spoke with [facility] liaison via phone; reported that she met with patient yesterday; teaching completed; IV access documentation faxed as directed
Home Health referral sent to [facility]
Patient can discharge to home after 2 PM dose of antibiotic
Plan: discharge to home with IV home infusion services and [facility] services
--- NOTE | 2024-07-30 12:32 | W.PN.HOSP.TC ---
Addendum entered and electronically signed by Arnulfo Odell MD 07/31/24 18:20:
[id number]
Original Note:
Today's Communication/Plan
-
cefazolin - for at least 2 weeks; labs as instructed
Ice with elevation to control edema
Weightbearing as tolerated with walker
Right Knee immobilizer locked in extension at all times
Splint right ankle when weightbearing
Suture removal 2 to 3 weeks postop
F/u Ortho, PCP, ID outpt
Assessment / Plan
Assessment / Plan
#MSSA bacteremia
#Postoperative infection of RLE
#Recent ORIF of right ankle and right quadratus tendon repair
#Incision and drainage, right thigh wound performed on 07/27/2024
-went to the OR evening of 07/22 for I&D, debridement
-Cultures taken, started on broad-spectrum antibiotics with IV vancomycin and Zosyn
-Blood and OR cultures returning positive for Staph aureus, final results with MSSA
-Has remained hemodynamically stable, no fevers this morning
-ID following, narrowed antibiotics to vancomycin and cefazolin
Plan
antibiotics to IV cefazolin, DC vancomycin - cont outpt -to complete 2 additional weeks of IV cefazolin (with option to extend, if necessary).
-Continue aspirin 325 mg for DVT prophylaxis x 30 days
- CAM boot RLE
-Follow cultures for sensitivities, trend CBC and temp
-PRN analgesics and antiemetic
-Elevated WBC - went up probably 07/05 to surgery - monitor wbc and fever curve
-Ice with elevation to control edema
Weightbearing as tolerated with walker
Right Knee immobilizer locked in extension at all times
Splint right ankle when weightbearing
Suture removal 2 to 3 weeks postop
-F/u ID and Ortho outpt
#Obstructive sleep apnea
-Uses home CPAP at 8 mmHg, brought in his unit
-No known pulmonary hypertension or RV dysfunction
#Essential hypertension
-Home regimen includes lisinopril
-No known history of hypertensive systemic disease
-Blood pressure here well-controlled
#Hyponatremia
-mild
-monitor
#H/O depression
-Continue with home Remeron
DVT prophylaxis: ASA
Diet: Regular
CODE STATUS: Full code
More than 30 minutes spent in discharge including
Final examination of the patient
Summarizing hospital stay
Instructions for continuing care to all relevant caregivers
Preparation of discharge records, prescriptions, and referral forms
Total time spent (37 in minutes):
Anticipated Discharge: Today
Subjective/Interval History
-
Date of Service: July 30, 2024
no acute events
Objective Data
-
Labs:
Laboratory Results
07/30/24 07/30/24
04:47 04:48
WBC 8.7
Hgb 9.1 L
Hct 27.7 L
Plt Count 465 H
Sodium 137
Potassium 4.4
Chloride 104
Carbon Dioxide 26
BUN 14
Creatinine 0.6 L
Glucose 96
Calcium 9.0
Total Bilirubin 0.4
AST 30
ALT 53 H
Alkaline Phosphatase 87
Vital Signs:
Vital Signs
Temp Pulse Resp BP Pulse Ox
98.1 F 77 18 109/62 96
07/29/24 23:15 07/30/24 08:15 07/30/24 08:15 07/30/24 08:15 07/30/24 08:15
I&O
07/29/24 07/30/24 07/31/24
06:59 06:59 06:59
Intake Total 1920 / 1920 837 / 837
Output Total 700 / 700 1650 / 1650
Balance 1220 / 1220 -813 / -813
Review of Systems
-
History Source: Patient
All other systems: Not reviewed unless documented
Data Reviewed
-
Labs: Labs Reviewed by me and Discussed with Patient
--- NOTE | 2024-07-30 12:43 | W.DS.TRANS ---
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
-
Discharge Instructions:
Discharge Diagnosis/Procedures Right leg abscess; s/p I&D
Staph aureus bacteremia; cleared
Diet Low Cholesterol,Low Fat
Activity As tolerated
Blood Work cbc and cmp in 1 week
Others Tests as per orthopedics outpt
Instructions:
Stand-Alone Forms:
Changes to Home Medications: Yes
Discharge Medications:
DC Medications w/original date entered in [employer]
acetaminophen 500 mg tablet 1,000 mg PO Q6H PRN pain 06/26/24
lisinopril 20 mg tablet 20 mg PO QPM Blood Pressure 06/26/24
mirtazapine 15 mg tablet 15 mg PO QPM Mental Health/Anxiety 06/26/24
sertraline 100 mg tablet 100 mg PO QPM Mental Health/Anxiety 06/26/24
aspirin 325 mg tablet 325 mg PO DAILY DVT prophylaxis 30 days #30 tabs 06/27/24
docusate sodium 100 mg capsule 200 mg (2 x 100 mg) PO BID 14 days #56 caps 06/27/24
sennosides 8.6 mg tablet (Stephanie-fernando) 17.2 mg (2 x 8.6 mg) PO BID 14 days #56 tabs 06/27/24
gabapentin 100 mg capsule 100 mg PO TID PRN for neuropathic pain as needed #90 caps 07/01/24
oxycodone 5 mg tablet 5 mg PO Q6H PRN moderate pain #30 tabs 07/01/24
oxycodone 5 mg tablet 10 mg (2 x 5 mg) PO Q6H PRN for severe pain as needed #20 tabs 07/01/24
celecoxib 100 mg capsule (Celebrex) 100 mg PO BID Pain 07/23/24
cefazolin 10 gram solution for injection 2 g IV Q8H #0 ea 07/30/24
Home Medication Changes
cefazolin 10 gram solution for injection 2 g IV Q8H #0 ea 07/30/24
Pending Results: No
[2024-07-30 14:59] VITALS: BP 129/77
--- NOTE | 2024-07-31 15:27 | PN.CDI ---
CDI
- -
CDI:
Physician Documentation Request
Admit Date: 07/22/24 18:30
Dear Doctor,
Patient admitted with Methicillin-sensitive Staph Aureus infection of right thigh, status post incision and drainage of right thigh wound 07/22/2024.
07/22 Op Report, '06/26/2024 underwent a repair of a right quadriceps tendon rupture.... It was noted that he had delayed healing about the distal aspect of his quadriceps tendon incision, but today wound was noted to have dehiscence about the
superior and middle aspect with significant drainage. Based upon this, emergent I and D was recommended.....His surgical wound was then opened using a #10 blade, extended slightly proximally, and a large volume of purulent material was expressed.
This cavity was then irrigated with 3 L of normal saline using a Pulsavac culled fruit packer followed by 9 L of povidone-iodine
irrigation.
Based on the above documentation, please provide in your note the depth of the incision and drainage performed:
Quadriceps tendon
Subcutaneous tissue
Skin
Use of terms such as suspected, likely, concern for, or probable (associated with a specific diagnosis that is being evaluated, monitored, or treated as if it exists) are acceptable and can be coded in the inpatient setting, when documented at the
time of discharge.
Thank you,
Sahara YOUNG,RN,CCDS
CDI Specialist
Available via [place] text
Please use your independent medical judgment in providing your response.
== END 2024-07-30 15:19 | disposition home health service (06) | DRG 863 ==
LOC: 2 SOUTH 18:30
PROVIDERS: Physician Assistant Medical; Specialist; ADMITTING PHYSICIAN Internal Medicine; ATTENDING PHYSICIAN Internal Medicine; CONSULT PHYSICIAN Internal Medicine Infectious Disease
PROC: 0H9KXZZ Drainage of Right Lower Leg Skin, External Approach (ICD-10-PCS; 2024-07-22)
DX: T81.41XA Infection following a procedure, superficial incisional surgical site, initial encounter (principal); D62 Acute posthemorrhagic anemia; R78.81 Bacteremia; E87.1 Hypo-osmolality and hyponatremia; L02.415 Cutaneous abscess of right lower limb; I11.9 Hypertensive heart disease without heart failure; F32.A Depression, unspecified; G47.00 Insomnia, unspecified; G47.33 Obstructive sleep apnea (adult) (pediatric); L08.9 Local infection of the skin and subcutaneous tissue, unspecified; B95.61 Methicillin susceptible Staphylococcus aureus infection as the cause of diseases classified elsewhere; H91.91 Unspecified hearing loss, right ear; L30.9 Dermatitis, unspecified; E66.9 Obesity, unspecified; D33.3 Benign neoplasm of cranial nerves; Z68.37 Body mass index [BMI] 37.0-37.9, adult; Y83.8 Other surgical procedures as the cause of abnormal reaction of the patient, or of later complication, without mention of misadventure at the time of the procedure; Z91.81 History of falling
CPT/HCPCS: 73600; 73610; 80048; 80053; 80202; 82607; 82728; 82746; 82962; 83540; 83550; 85025; 85027; 85652; 86140; 86803; 87040; 87070; 87075; 87147; 87150; 87186; 87205; 93306; 97116; 97163; 97166; 97530; 97535; Q9950

== ENCOUNTER → 2024-09-23 13:38 | Outpatient (REF) | payer OTHER, SELFPAY ==
[2024-09-23 14:16] LABS: % Basophils 0.8 % (0-2); % Eosinophils 4.8 % (0-6); % Immature Granulocytes 0.6 % (0-0.5); % Lymphocytes 20.8 % (20.5-51.1); % Monocytes 9.1 % (1.7-9.3); % Neutrophils 63.9 % (42.2-75.2); Absolute Basophils 0.1 10^3/uL (0-0.2); Absolute Eosinophils 0.4 10^3/uL (0-0.7); Absolute Immature Granulocytes 0.1 10^3/uL (0-0.05); Absolute Lymphocytes 1.6 10^3/uL (1.2-3.4); Absolute Monocytes 0.7 10^3/uL (0.1-0.6); Hematocrit 44.2 % (39.0-52.0); Hemoglobin 14.7 g/dL (13.0-18.0); Mean Corp Hgb Conc. 33.3 g/dL (33.0-37.0); Mean Corpuscular Hgb 28.9 pg (27.0-31.0); Mean Platelet Volume 9.1 fL (7.4-10.4); Nucleated Red Blood Cells % 0 % (-); Platelet Count 300 10^3/uL (130-400); Red Blood Cell Count 5.08 10^6/uL (4.70-6.10); Red Cell Dist. Width 14.5 % (11.5-14.5); White Blood Cell Count 7.8 10^3/uL (4.8-10.8)
[2024-09-23 14:31] LABS: Erythrocyte Sed Rate 3 mm/hour (0-20)
== END ==
LOC: REG 13:38
PROVIDERS: ATTENDING PHYSICIAN Physician Assistant Surgical; FAMILY PHYSICIAN Physician Assistant
DX: S76.111D Strain of right quadriceps muscle, fascia and tendon, subsequent encounter (principal)
CPT/HCPCS: 36415; 85025; 85652; 86140

== ENCOUNTER → 2024-09-29 12:31 | Outpatient (REF) | payer OTHER, SELFPAY | LOC: WOUND 12:31 | PROVIDERS: ATTENDING PHYSICIAN Surgery; FAMILY PHYSICIAN Physician Assistant | DX: T81.31XA Disruption of external operation (surgical) wound, not elsewhere classified, initial encounter (principal); L97.812 Non-pressure chronic ulcer of other part of right lower leg with fat layer exposed; S76.111A Strain of right quadriceps muscle, fascia and tendon, initial encounter; E66.01 Morbid (severe) obesity due to excess calories; H91.91 Unspecified hearing loss, right ear; I10 Essential (primary) hypertension; Y83.8 Other surgical procedures as the cause of abnormal reaction of the patient, or of later complication, without mention of misadventure at the time of the procedure | CPT/HCPCS: 11042; 99203 ==

== ENCOUNTER → 2024-10-06 10:18 | Outpatient (REF) | payer OTHER, SELFPAY | LOC: WOUND 10:18 | PROVIDERS: ATTENDING PHYSICIAN Surgery; FAMILY PHYSICIAN Physician Assistant | DX: T81.31XA Disruption of external operation (surgical) wound, not elsewhere classified, initial encounter (principal); L97.812 Non-pressure chronic ulcer of other part of right lower leg with fat layer exposed; S76.111A Strain of right quadriceps muscle, fascia and tendon, initial encounter; E66.01 Morbid (severe) obesity due to excess calories; H91.91 Unspecified hearing loss, right ear; I10 Essential (primary) hypertension; Y83.8 Other surgical procedures as the cause of abnormal reaction of the patient, or of later complication, without mention of misadventure at the time of the procedure; X58.XXXA Exposure to other specified factors, initial encounter | CPT/HCPCS: 11042 ==

== ENCOUNTER → 2024-10-13 13:14 | Outpatient (REF) | payer OTHER, SELFPAY | LOC: WOUND 13:14 | PROVIDERS: ATTENDING PHYSICIAN Surgery; FAMILY PHYSICIAN Physician Assistant | DX: T81.31XA Disruption of external operation (surgical) wound, not elsewhere classified, initial encounter (principal); L97.812 Non-pressure chronic ulcer of other part of right lower leg with fat layer exposed; S76.111A Strain of right quadriceps muscle, fascia and tendon, initial encounter; E66.01 Morbid (severe) obesity due to excess calories; H91.91 Unspecified hearing loss, right ear; I10 Essential (primary) hypertension; X58.XXXA Exposure to other specified factors, initial encounter; Y83.8 Other surgical procedures as the cause of abnormal reaction of the patient, or of later complication, without mention of misadventure at the time of the procedure | CPT/HCPCS: 11042 ==

== ENCOUNTER → 2024-10-20 14:10 | Outpatient (REF) | payer OTHER, SELFPAY | LOC: WOUND 14:10 | PROVIDERS: ATTENDING PHYSICIAN Surgery | DX: T81.31XA Disruption of external operation (surgical) wound, not elsewhere classified, initial encounter (principal); L97.812 Non-pressure chronic ulcer of other part of right lower leg with fat layer exposed; S76.111A Strain of right quadriceps muscle, fascia and tendon, initial encounter; E66.01 Morbid (severe) obesity due to excess calories; H91.91 Unspecified hearing loss, right ear; I10 Essential (primary) hypertension; Y83.8 Other surgical procedures as the cause of abnormal reaction of the patient, or of later complication, without mention of misadventure at the time of the procedure; X58.XXXA Exposure to other specified factors, initial encounter | CPT/HCPCS: 17250; 99213 ==

== ENCOUNTER → 2024-10-29 13:41 | Outpatient (REF) | payer OTHER, SELFPAY | LOC: WOUND 13:41 | PROVIDERS: ATTENDING PHYSICIAN Surgery; FAMILY PHYSICIAN Physician Assistant | DX: T81.31XA Disruption of external operation (surgical) wound, not elsewhere classified, initial encounter (principal); L97.812 Non-pressure chronic ulcer of other part of right lower leg with fat layer exposed; S76.111A Strain of right quadriceps muscle, fascia and tendon, initial encounter; E66.01 Morbid (severe) obesity due to excess calories; I10 Essential (primary) hypertension; Y83.8 Other surgical procedures as the cause of abnormal reaction of the patient, or of later complication, without mention of misadventure at the time of the procedure; X58.XXXA Exposure to other specified factors, initial encounter | CPT/HCPCS: 11042 ==

== ENCOUNTER → 2024-11-05 10:49 | Outpatient (REF) | payer OTHER, SELFPAY | LOC: WOUND 10:49 | PROVIDERS: ATTENDING PHYSICIAN Surgery; FAMILY PHYSICIAN Physician Assistant | DX: T81.31XA Disruption of external operation (surgical) wound, not elsewhere classified, initial encounter (principal); L97.812 Non-pressure chronic ulcer of other part of right lower leg with fat layer exposed; S76.111A Strain of right quadriceps muscle, fascia and tendon, initial encounter; E66.01 Morbid (severe) obesity due to excess calories; H91.91 Unspecified hearing loss, right ear; I10 Essential (primary) hypertension; Y83.8 Other surgical procedures as the cause of abnormal reaction of the patient, or of later complication, without mention of misadventure at the time of the procedure; X58.XXXA Exposure to other specified factors, initial encounter | CPT/HCPCS: 11042 ==

== ENCOUNTER → 2024-11-12 09:17 | Outpatient (REF) | payer OTHER, SELFPAY | LOC: WOUND 09:17 | PROVIDERS: ATTENDING PHYSICIAN Surgery; FAMILY PHYSICIAN Physician Assistant | DX: T81.31XA Disruption of external operation (surgical) wound, not elsewhere classified, initial encounter (principal); L97.812 Non-pressure chronic ulcer of other part of right lower leg with fat layer exposed; Y83.8 Other surgical procedures as the cause of abnormal reaction of the patient, or of later complication, without mention of misadventure at the time of the procedure; S76.111A Strain of right quadriceps muscle, fascia and tendon, initial encounter; E66.01 Morbid (severe) obesity due to excess calories; H91.91 Unspecified hearing loss, right ear; I10 Essential (primary) hypertension; X58.XXXA Exposure to other specified factors, initial encounter | CPT/HCPCS: 11042; 36415; 85025; 85652; 86140; 87070; 87075; 87147; 87186; 87205 ==

== ENCOUNTER → 2024-12-03 10:34 | Outpatient (REF) | payer OTHER, SELFPAY | LOC: WOUND 10:34 | PROVIDERS: ATTENDING PHYSICIAN Surgery | DX: T81.31XA Disruption of external operation (surgical) wound, not elsewhere classified, initial encounter (principal); Y83.8 Other surgical procedures as the cause of abnormal reaction of the patient, or of later complication, without mention of misadventure at the time of the procedure; L97.812 Non-pressure chronic ulcer of other part of right lower leg with fat layer exposed; S76.111A Strain of right quadriceps muscle, fascia and tendon, initial encounter; X58.XXXA Exposure to other specified factors, initial encounter; E66.01 Morbid (severe) obesity due to excess calories; H91.91 Unspecified hearing loss, right ear; I10 Essential (primary) hypertension | CPT/HCPCS: 99213 ==

== ENCOUNTER → 2024-12-08 15:00 | Outpatient (REF) | payer OTHER, SELFPAY ==
[2024-12-08 16:20] LABS: Hematocrit 48.1 % (39.0-52.0); Hemoglobin 16.2 g/dL (13.0-18.0); Mean Corp Hgb Conc. 33.7 g/dL (33.0-37.0); Mean Corpuscular Volume 83.5 fL (80.0-94.0); Nucleated Red Blood Cells % 0 % (-); Platelet Count 253 10^3/uL (130-400); Red Cell Dist. Width 15.0 % (11.5-14.5)
[2024-12-08 16:40] LABS: ALT (SGPT) 23 U/L (0-50); AST (SGOT) 21 U/L (17-59); Albumin 4.6 g/dl (3.5-5.0); Alkaline Phosphatase 75 U/L (38-126); Blood Urea Nitrogen 15 mg/dl (9-20); Calcium 10.1 mg/dl (8.4-10.2); Carbon Dioxide 25 mmol/L (22-30); Chloride 108 mmol/L (98-107); Glucose 102 mg/dl (70-99); Potassium 4.5 mmol/L (3.5-5.1); Sodium 141 mmol/L (135-145); Total Protein 7.9 g/dl (6.3-8.2); eGFR > 60.00
== END ==
LOC: RCS 15:00
PROVIDERS: ATTENDING PHYSICIAN Surgery Plastic and Reconstructive Surgery
DX: Z01.818 Encounter for other preprocedural examination (principal)
CPT/HCPCS: 36415; 80053; 85025; 93005

== ENCOUNTER → 2024-12-10 17:02 | Outpatient (REF) | payer OTHER, SELFPAY | LOC: RAD 17:02 | PROVIDERS: ATTENDING PHYSICIAN Surgery Plastic and Reconstructive Surgery; FAMILY PHYSICIAN Physician Assistant | DX: L97.812 Non-pressure chronic ulcer of other part of right lower leg with fat layer exposed (principal); T81.89XA Other complications of procedures, not elsewhere classified, initial encounter | CPT/HCPCS: 73701; Q9967 ==

== ENCOUNTER 2024-12-12 15:57 | Inpatient (IN) | payer OTHER, SELFPAY ==
[2024-12-12 11:43] VITALS: BP 168/101
--- NOTE | 2024-12-12 12:42 | ED.GENMED ---
History of Present Illness
General
Chief Complaint: Skin Problem
Source: patient
Exam Limitations: none
Time Seen by Provider: 12/12/24 12:29
Nursing documentation reviewed up to this point in time: agreed with
History of Present Illness
History of Present Illness:
Patient is a 64-year-old male with history of postoperative infection and ORIF of right ankle/incision and drainage performed of right thigh wound on July 27, 2024. Patient reports since then he has been dealing with a chronic wound. He has
been evaluated by orthopedics, Dr. Darnell, and in September was evaluated by Dr. Stevenson in wound care. He reports intermittently fills up and drains etc. He was told he has MSSA. He recently saw plastics DR Thapa last week and had a outpatient
CAT scan. They will be planning on going to go in and remove the material that was used to repair his tendon.
Patient presents here to the ER because yesterday he was walking on the steps and felt a fullness and tightness to the area and noted since yesterday it has been more indurated and red. Today patient woke up and area was draining. He denies any
fever chills he does not feel ill.
Past History
Past History
ED Past Medical History: HTN
ED Past Surgical History: Orthopedic
Social History
Tobacco: Non-smoker
Alcohol: Occasional
Personal:
Living: with family
Employment: Retired
Phy Exam
General Physical Exam
General Presentation: no apparent distress
General age: appears stated age
General Skin: warm and dry
General Habitus: normal
General Mental: alert
General Hydration: appears well hydrated
Neurological Exam
Neurological Exam: alert and oriented x3
Musculoskeletal Exam
Musculoskeletal Exam: other (Right distal thigh with open wound mildly indurated mildly red)
Course
Orders/Labs/Results
Orders:
Orders
12/12/24 Breakfast
Regular
At Your Request: Full Participation
Does patient need a safe tray?: No
12/12/24 12:57
IV Insert/Care/Rem.- Treatment PRN
12/12/24 13:07
Complete Blood Count/With Diff Urgent
Comprehensive Metabolic Panel Urgent
12/12/24 15:28
Vancomycin [Vancocin] 2,000 mg 0.9% Sodium Chloride 500 ml [Nss] 500 ml IV NOW
12/12/24 15:41
Admit/Transfer Patient As Directed
Co-Sign Provider:
Level of Care: Inpatient admission
Assign to:: Medical/Surgical
Physician / Group: [place]
Diagnosis: Persistent Right Thigh Infection
Reason for Hospitalization: IV abx, OR washout
Expected length of stay greater than two midnights?: Yes
ELOS- Estimated Length of Stay in days: 3
I certify the patient meets the requirements for IP care: Yes
PRN Pain Medication Management As Directed
May give lesser potent ordered pain med per pt: Yes
preference::
Protocol:: Medication orders for pain may be administered in a
manner that supports deferring to patient preference
when the pt is:
- Requesting an ordered lesser potent pain medication.
Least to most potent pain medications are defined
as: acetaminophen < NSAID < tramadol < opioids
(morphine, oxycodone, hydromorphone).
- Requesting a lesser dose of the same medication IF
ORDERED.
- Requesting a less intrusive route of administration
if both routes are prescribed by the provider (PO <
IV).
12/12/24 15:42
Code Status As Directed
Resuscitation Status: Full Code
12/12/24 15:47
Wound Culture [Wound/Abscess/Other Culture] Urgent
VINCENT Source: Leg
Specimen Description: Right
Date Specimen was Collected: 12/12/24
Time Specimen was Collected: 15:46
12/12/24 16:42
Acetaminophen [Tylenol] 650 mg PO Q4HPRN PRN
12/12/24 16:42
ORTHOPEDIC CONSULT Routine
Consulting Provider: Ahmet Pereyra
Was physician already notified: Yes
PLASTIC SURGERY CONSULT Routine
Consulting Provider: Han August
Was physician already notified: Yes
Activity As Directed
Activity Level: Out of Bed-Early Mobility
With Assistance
Pneumatic Compression Sleeves As Directed
Type: Knee high
Vital Signs As Directed
Frequency: Per unit guidelines
Cpap [RESP] Routine
Patient to use own unit?: Yes
DX Deep Vein Thrombosis Video Routine
Abnormal Lab Results
12/12/24
13:07
RDW 15.2 H %
(11.5-14.5)
Absolute Neuts (auto) 8.1 H 10^3/uL
(1.4-6.5)
Absolute Monos (auto) 0.7 H 10^3/uL
(0.1-0.6)
Neutrophils % 77.5 H %
(42.2-75.2)
Lymphocytes % 12.5 L %
(20.5-51.1)
Chloride 109 H mmol/L
(98-107)
Creatinine 0.6 L mg/dL
(0.7-1.3)
Glucose 109 H mg/dl
(70-99)
AST 15 L U/L
(17-59)
12/12/24 13:07
12/12/24 13:07
Vital Signs
Initial and Last Documented VS:
Initial Vital Signs
Temp Pulse Resp BP Pulse Ox
98.3 F 79 18 168/101 98
12/12/24 11:43 12/12/24 11:43 12/12/24 11:43 12/12/24 11:43 12/12/24 11:43
Last Documented Vital Signs
Temp Pulse Resp BP Pulse Ox
98.6 F 81 20 141/86 97
12/12/24 19:08 12/12/24 19:08 12/12/24 19:08 12/12/24 19:08 12/12/24 19:08
MDM/Problems Addressed
Differential Diagnosis Includes:
Not limited cellulitis, abscess
MDM/Problems Addressed:
As documented patient is a 64year-old male with chronic wound to his right thigh ever since surgery in July. He has been evaluated by orthopedics as well as wound care. He currently saw plastics Dr. August this week and had an outpatient CAT
scan. Patient started with discomfort yesterday to right anterior thigh along with his chronic wound/surgical site. He complains of induration redness and today reports it opened up and was bleeding draining. He did have a CAT scan on December 10 2
days ago. This was reviewed by me this does show a 3.9 cm rim-enhancing abscess along the anterior margin of the distal right quadriceps myotendinous junction superior to the patella with mild surrounding cellulitis. He denies any fever chills he
is nontoxic-appearing his white count is normal.
I spoke with and patient to be admitted to go to the OR this week. As per plastics he will need to have this original material removed. Broad-spectrum antibiotic ordered. Patient been admitted to the hospital service.
Chronic conditions affecting care:
Chronic right leg infection
*Radiology
Radiology exam reviewed: radiology read reviewed (from December 10 )
*Pulse Oximetry
SaO2: 98
Oxygen Mode of Delivery: Room air
Patient hypoxic: no
*Critical Care Note
Total Time (30-74mins, 75-104mins- exclusive of procedures): Not Applicable
Data Reviewed
Review of Other/Old Records Reveals: Radiology Studies (outpt ct scan ; previous micro results )
Source: patient and spouse
Patient Management
Discussion with other providers: Corrections Unit Supervisor (Dr August plastics )
ED Attending Note
-
Portions of this chart may have been created with voice recognition software.� Occasional wrong word or��sound alike� substitutions may have occurred due to the inherent limitations of voice recognition software.
Discharge Plan
Departure
Patient Disposition: Admit
Date of Disposition: 12/12/24
Time of Disposition: 15:29
Admit to: Med/Surg
Admit to doctor: hospitalist
Presentation/result/management discussed w/ accepting MD/DO: Hospitalist
Patient with high blood pressure during this ER visit?: Yes
Condition: Fair
Covid-19: Not Applicable
Discharge Problem:
Abscess of right thigh
Interventions
Interventions:
*Risk Screen - Suicide Last Done: 12/12/24 11:43
*General Assessment Last Done: 12/12/24 11:43
*Neglect/Abuse Screening Last Done: 12/12/24 11:43
*ED- Fall Risk Assessment Last Done: 12/12/24 12:03
*ED COVID-19 Vaccine History Last Done: 12/12/24 12:03
*Nursing Disposition Last Done: 12/12/24 16:25
ED-Skin Assessment Last Done: 12/12/24 16:25
Discharge Date and Time
Discharge Date/Time: 12/12/24 16:33
[2024-12-12 13:13] LABS: Hematocrit 45.6 % (39.0-52.0); Hemoglobin 15.6 g/dL (13.0-18.0); Mean Corp Hgb Conc. 34.2 g/dL (33.0-37.0); Mean Corpuscular Volume 82.5 fL (80.0-94.0); Nucleated Red Blood Cells % 0 % (-); Platelet Count 226 10^3/uL (130-400); Red Cell Dist. Width 15.2 % (11.5-14.5)
[2024-12-12 13:40] LABS: ALT (SGPT) 19 U/L (0-50); AST (SGOT) 15 U/L (17-59); Albumin 4.2 g/dl (3.5-5.0); Alkaline Phosphatase 80 U/L (38-126); Blood Urea Nitrogen 14 mg/dl (9-20); Calcium 9.5 mg/dl (8.4-10.2); Carbon Dioxide 22 mmol/L (22-30); Chloride 109 mmol/L (98-107); Glucose 109 mg/dl (70-99); Potassium 4.3 mmol/L (3.5-5.1); Sodium 136 mmol/L (135-145); Total Protein 7.2 g/dl (6.3-8.2); eGFR > 60.00
[2024-12-12 14:12] VITALS: BP 141/89
--- NOTE | 2024-12-12 15:29 | HPS.HSE ---
Addendum entered and electronically signed by Nadya Hoffman DO 12/12/24 21:05:
The patient is seen and examined. I have reviewed the patient at length with Petra, and agree with her history and physical and assessment and plan of care as per below. The patient underwent a right quadriceps tendon rupture repair in June,
and developed subsequent postoperative infection in July that required 2 incision and drainages and the hospitalization was complicated by emesis as bacteremia. He also completed 2-week course of Ancef followed by 6-week course of oral
antibiotics. He has persistent wound in his right knee over the patella, and now has increased redness swelling and purulent drainage from an area more proximal at the previously healed incision site.
The patient otherwise denies fevers and chills.
Afebrile vital signs stable
Right knee exam and shows purulent drainage and indurated superior to the right patella, acute on chronic wound of the right patella
Cardiovascular regular rate and rhythm no murmurs or gallops
Lungs are clear to auscultation bilaterally no wheezes rales rhonchi
Neuro grossly intact no focal deficits
# Recurrent soft tissue abscess, MSSA, over the right quadriceps tendon repair site
- Consultation to plastics and orthopedic surgery has been placed and they are aware, the patient will likely require incision and drainage and removal of foreign bodies, and deep tissue cultures.
- Infectious disease consultation
- Continue IV Ancef as per infectious disease
-NPO past mn pending surgical evaluation
Agree with additional plan of care as per below.
Original Note:
Family Physician
-
Family Physician: Kellie Reyes
Chief Complaint
-
Right Knee Infection
History of Present Illness
Patient is a 64 y/o male past medical history of hypertension, depression, obstructive sleep apnea and recent quadriceps tendon repair with subsequent infection who presents with concerns for recurrent infection. Patient underwent a right quadriceps
tendon rupture repair in June 2024. He developed subsequent postop infection in July 2024 requiring I&D x 2. This hospitalization was also complicated by MSSA bacteremia. Following hospitalization he completed a 2-week course of Ancef
followed by a 6-week course of oral antibiotics. He notes he has had a persistent wound on his right knee. He initially followed at the wound care center for short time but is no longer. He is now following with plastic surgery. Yesterday
patient noted increasing redness, some swelling and pain in the right knee area. This morning upon awakening a small area of previously healed incision site started to drain prompting him to come to the emergency department for evaluation. The
patient had a CAT scan of the lower extremity 2 days ago which did show a 3.9 cm abscess. He denies any fevers, sweats or chills.
Medical History
Past Medical History
Past Medical History: Reports Other
Additional Past Medical History:
Essential Hypertension
Depression / Insomnia
Obstructive Sleep Apnea
Past Surgical History: Reports Other
Additional Past Surgical History:
Right Quadriceps Tendon Repair
Right Bi-Malleolar Ankle Fracture ORIF
Clavicle ORIF
Social History
Tobacco: Non-smoker
Alcohol: Occasional
Family History
Family History: Not pertinent
Allergies / Home Medications
Allergies reflects when Allergies were last updated in [employer].
Home Medications with original date entered in [employer]
Allergy/Medication List:
Allergies
Allergy/AdvReac Type Severity Reaction Status Date / Time
No Known Allergies Allergy Verified 12/12/24 11:43
Home Medications
mirtazapine 15 mg tablet 15 mg PO HS Mental Health/Anxiety 06/26/24
sertraline 100 mg tablet 100 mg PO HS Mental Health/Anxiety 06/26/24
fexofenadine 180 mg tablet 180 mg PO HS 12/12/24
ibuprofen 200 mg tablet 600 mg PO DAILYPRN PRN mild pain 12/12/24
lisinopril 10 mg tablet 10 mg PO HS 12/12/24
Review of Systems
-
A 12 point ROS was completed and negative except as noted: Yes
Constitutional: Denies Fever or Chills
Respiratory: Denies Cough or Trouble Breathing
Cardiac: Denies Chest Pain or Palpitations
Physical Exam
Vital Signs
Vital Signs
Temp Pulse Resp BP Pulse Ox
98.3 F 65 16 141/89 95
12/12/24 11:43 12/12/24 14:12 12/12/24 14:12 12/12/24 14:12 12/12/24 14:12
Physical Exam
General: Comfortable and Conversant
HEENT: Anicteric and Moist mucous membranes
Respiratory: Clear and Non Labored Respirations
Cardiac: S1/S2 and Regular Rhythm
GI: Soft and Non Tender
Rectal: Deferred by Provider
Musculoskeletal: No Clubbing, No Cyanosis and Other (Quarter sized wound on right patella area; Superior to the knee along the surgical care is a small opening which is draining; Slightly medial to the surgical care is some mild erythema )
Skin: Warm, Dry and Other (See Musculoskeletal )
Neuro: Awake, Alert, Oriented and Nonfocal/grossly intact
Psych: Calm
Laboratory Results
-
12/12/24 13:07
12/12/24 13:07
Laboratory Results
Total Bilirubin 0.8 mg/dl (0.2-1.3) 12/12/24 13:07
AST 15 U/L (17-59) L 12/12/24 13:07
ALT 19 U/L (0-50) 12/12/24 13:07
Alkaline Phosphatase 80 U/L (38-126) 12/12/24 13:[address]:
3.9 cm rim-enhancing ABSCESS located along the anterior margin of the distal right quadriceps myotendinous junction 5 cm superior to the patella. Moderate surrounding cellulitis
Data Reviewed
-
CT Scan: Report Reviewed by me
Lab Data: Labs Reviewed by me
Impression/Plan
-
Recurrent Right Thigh Infection
-Consult Plastic and Orthopedic Surgery
-Consult Infectious Disease
-Tentative plan for OR later this week for I&D
-Reviewed prior culture data - Most recent wound culture from November 12 with MSSA - Start Ancef pending ID consult
Essential Hypertension
-Continue lisinopril
Depression / Insomnia
-Continue mirtazapine and sertraline
Obstructive Sleep Apnea
-Continue CPAP
DVT proph: SCDs
Code Status: Full Code
[2024-12-12] MEDS: VANCOCIN 540 MG IV (16:09)
--- NOTE | 2024-12-12 16:24 | CON.ID ---
Consultation
-
Date/Time Consultation Requested: December 12, 2024 1620
Date/Time Consultation Performed: December 12, 20241624
Requesting Provider: Petra Rojas PA-C
Performing Provider: Dr. Emely Roper
Reason for Consultation: Recurrent thigh abscess
Chief Complaint / Past History
Chief Complaint
Right knee swelling and drainage
History of Present Illness
Brant Sargent is being evaluated at the request of Petra Bansal in regards to right knee infection. 64-year-old male with history of closed bimalleolar ankle fracture and quadricep tendon rupture status post ankle ORIF and repair of the right
quadricep tendon June 26, 2024, subsequently complicated by right distal thigh abscess status post I and D July 22, 2024. He was seen by infectious disease Dr. Vallejo who treated him with IV cefazolin which he completed August 12, 2024
followed by another 2-week course of oral cephalexin. The right knee distal wound postop was very slow to heal. Orthopedic continued with the oral antibiotic and referred to Dr. Stevenson at wound care center in September for the chronic nonhealing
right knee wound. Further oral antibiotics stopped at that time. November 12 wound swab of the culture grew MSSA. Early December, moderate amount of drainage noted from the wound. He was referred to plastics for wound closure. Plastics ordered CT of
the extremity which showed a 3.9 cm abscess along the anterior margin of the distal right quadricep without osteo or septic arthritis (12/10/24). Last night patient noted induration and discomfort distal thigh. Today the proximal wound opened up
and started draining pus. The distal wound also draining pus and blood. Patient therefore came to the ER today. He is started on cefazolin. Patient denies any fevers or chills. No other complaints.
Past History
Additional Past Medical History:
DENILSON
Vestibular neuroma
HTN
MSSA bacteremia from right thigh abscess s/p I+D 07/22/24
Additional Past Surgical History:
Right ankle surgery ORIF /right quad repair 06/26/24.
Right clavicular ORIF
Allergy History:
No Known Allergies Allergy (Verified 12/12/24 11:43)
Medications Reviewed: Yes
Current Antibiotics:
Zosyn
Vancomycin (dosing per pharmacy
Social History
Tobacco: Non-Smoker
Alcohol: None
Drug: None
Personal:
Living: With Family
Employment: Retired
Family History
Family History: Not Pertinent
Review of Systems
Review of Systems
General: Negative Fever, Chills or Change in Appetite
HEENT: Negative Sinus Problems or Pharyngitis
Cardiovascular: Negative Chest Pain
Respiratory: Negative Dyspnea or Cough
Gasteroenterology: Negative Nausea, Vomiting or Diarrhea
Genital / Urological: Negative Dysuria or Flank Pain
Endocrine: Negative Weakness
All systems: All other systems were reviewed and were negative
Vital Signs
Temp Pulse Resp BP Pulse Ox
98.3 F 65 16 141/89 95
12/12/24 11:43 12/12/24 14:12 12/12/24 14:12 12/12/24 14:12 12/12/24 14:12
Physical Exam
Physical Exam
Constitutional: No Acute Distress
Eyes: No Conjunctival Hemorrhage and Sclera Anicteric
Cardiovascular: Regular Rate and S1/S2
Pulmonary: Clear
Gastrointestinal: Soft, Non Tender, Non Distended and Normal Bowel Sounds
Wound: Other (right femur to distal patella previous incision with wound proximally draing seropurulent fluid; distal wound draining purulent-sanguinous fluid; + edema )
Neurological: AO x 3
Lab / Diagnostic Study Results
12/12/24 13:07
12/12/24 13:07
Abs Immat Gran (auto) 0.0 10^3/uL (0-0.05) 12/12/24 13:07
Absolute Neuts (auto) 8.1 10^3/uL (1.4-6.5) H 12/12/24 13:07
Absolute Lymphs (auto) 1.3 10^3/uL (1.2-3.4) 12/12/24 13:07
Absolute Monos (auto) 0.7 10^3/uL (0.1-0.6) H 12/12/24 13:07
Absolute Basos (auto) 0.1 10^3/uL (0-0.2) 12/12/24 13:07
Immature Gran % 0.3 % (0-0.5) 12/12/24 13:07
Neutrophils % 77.5 % (42.2-75.2) H 12/12/24 13:07
Lymphocytes % 12.5 % (20.5-51.1) L 12/12/24 13:07
Monocytes % 6.9 % (1.7-9.3) 12/12/24 13:07
Eosinophils % 2.3 % (0-6) 12/12/24 13:07
Basophils % 0.5 % (0-2) 12/12/24 13:07
Microbiology Results
Micro:
12/12/24 15:47 Wound Culture - Pending
Leg - Right Gram Stain - Pending
12/10/24 CT RLE: 3.9 cm rim-enhancing ABSCESS located along the anterior margin of the distal right quadriceps myotendinous junction 5 cm superior to the patella. Moderate surrounding cellulitis.
Assessment / Plan
# Relapse of MSSA soft tissue abscess over previous R quadriceps tendon repair site
- will need I+D, removal of foreign bodies. Please send deep cultures
- Agree with cefazolin 2g IV q8.
- DC Vancomycin.
# Conditions prior to admission
Right ankle surgery ORIF /right quad repair 06/26/24.
MSSA bacteremia from right thigh abscess s/p I+D 07/22/24
DENILSON
Vestibular neuroma
HTN
Right clavicular ORIF
[2024-12-12 17:33] VITALS: BP 162/104; BMI 35.5
[2024-12-12] MEDS: ANCEF 10 IV (17:44)
[2024-12-12 19:08] VITALS: BP 141/86
[2024-12-12] MEDS: ZOLOFT 100 MG PO (21:21)
[2024-12-12] MEDS: REMERON 15 MG PO (21:21)
[2024-12-12] MEDS: ZESTRIL 10 MG PO (21:21)
[2024-12-12] MEDS: CLARITIN 10 MG PO (21:21)
[2024-12-12 21:23] VITALS: BP 169/93
[2024-12-13] VITALS (10 sets, daily range): BP systolic 114–148; BP diastolic 70–88
[2024-12-13] MEDS: ANCEF 10 IV ×3 (06:03→21:26)
--- NOTE | 2024-12-13 08:04 | W.PN.HOSP.TC ---
Today's Communication/Plan
-
See plan
Assessment / Plan
Assessment / Plan
Gen: NAD, AAOx3.
Eyes: EOMI, PERRLA, no scleral icterus.
Neck: supple.
CV: RRR, +S1/S2, no m/r/g.
Resp: CTAB, no rales, wheezes, or rhonchi.
Abd: +BS, soft, NT, ND
Skin: No rashes.
Neuro: CN 2-12 intact, non-focal.
Psych: Normal mood and affect.
CT RLE:
1. 3.9 cm rim-enhancing ABSCESS located along the anterior margin of the distal right quadriceps myotendinous junction 5 cm superior to the patella. Moderate surrounding cellulitis.
2. Previous distal right quadriceps tendon repair.
3. No CT evidence for acute osteomyelitis or septic arthritis.
4. Mild osteoarthritis in the right knee.
5. Moderate osteoarthritis in the right hip.
6. Chronic urinary bladder outlet obstruction.
R Suprapatellar abscess:
-cont IV Ancef as per ID
-s/p irrigation and debridement right thigh by Dr. Pereyra 12/12/24
-pain control
-follow intraop Cxs
Other problems:
Essential hypertension: cont ACEi
Depression/insomnia: cont Zoloft/Remeron
DENILSON: cont CPAP
Obesity due to excess calories, BMI 35.4
FULL/SCDs (Lovenox can start 12/14/24AM as per Dr. Pereyra)
Anticipated Discharge: 24 - 48 hours
Subjective/Interval History
-
Date of Service: December 13, 2024
No new complaints.
Objective Data
-
Vital Signs:
Vital Signs
Temp Pulse Resp BP Pulse Ox
97.8 F 65 16 132/76 96
12/13/24 07:00 12/13/24 07:00 12/13/24 07:00 12/13/24 07:00 12/13/24 07:00
I&O
12/12/24 12/13/24 12/14/24
06:59 06:59 06:59
Intake Total 500 / 500
Balance 500 / 500
--- NOTE | 2024-12-13 08:19 | CON.ORTHO ---
Consultation
-
Date/Time Consultation Requested: December 25/1642
Date/Time Consultation Performed: December 25/0755
Requesting Provider: AMITA Bansal
Performing Provider: Harriet Pereyra
Reason for Consultation: Right knee wound/abscess
Consultation - Orthopedics
History
History of Present Illness:
Brant is a 64 y/o white male, extremely well known to our Orthopaedic group for right quad tendon repair in [address] Darnell. Subsequently developed an infection of the knee and thigh. Underwent right thigh I&D, also via Dr. Darnell,
on 22 July 2024. Fortunately QT repair was intact. He was placed on IV ABX via PICC and followed along with ID. he then developed a wound over his distal incision which was VERY slow to heal. He followed along with Dr. Stevenson and the wound
care team for 6-8 weeks, and unfortunately, after exhausting measures to assist wound healing, it did not. Dr. Stevenson did not have much more to offer him, so we recommended he consult with plastics specialist, Dr. August. All along his ESR and CRP
remained normal. About 1 month ago there was a slight bump his CRP. Dr. August felt as though the braided suture used for the initial repair may be the underlying culprit. CT scanned was requested by Dr. August which showed a 4cm abscess just
proximal to the patella (above the slow to heal distal wound). He touched based with me yesterday after blood/pus spontaneously erupted from just above his patella. He has been admitted. Appreciate ID input. We have been requested in consult given
everything noted above. We have been in contact with Dr. August to develop a more definitive plan. He is currently on ABX
Past Medical History:
HTN
Past Surgical History:
Quad tendon repair (Jul 2024)
Right knee/thigh I&D (Jul 2024)
Social History:
Tobacco: Non-smoker
Alcohol: Occasional
Personal:
Living: with family
Employment: Retired
Family history:
Not pertinent
ROS:
12 point negative except those mentioned in the HPI
Allergies / Home Medications
Allergy/AdvReac Type Severity Reaction Status Date / Time
No Known Allergies Allergy Verified 12/12/24 11:43
�Medication �Instructions �Recorded
mirtazapine 15 mg tablet 15 mg PO HS Mental Health/Anxiety 06/26/24
sertraline 100 mg tablet 100 mg PO HS Mental Health/Anxiety 06/26/24
fexofenadine 180 mg tablet 180 mg PO HS Allergies 12/12/24
ibuprofen 200 mg tablet 600 mg PO DAILYPRN PRN mild pain 12/12/24
lisinopril 10 mg tablet 10 mg PO HS Blood Pressure 12/12/24
Vital Signs / Lab Results
Temp Pulse Resp BP Pulse Ox
97.8 F 65 16 132/76 96
12/13/24 07:00 12/13/24 07:00 12/13/24 07:00 12/13/24 07:00 12/13/24 07:00
12/12/24 13:07
12/12/24 13:07
Assessment / Plan
PE: Afeb. Bedrest. Right knee with slow to heal woud distal scar (which looks as good as it has over the last few month). No active drainage here. Just superior to the patella a small opening without active drainage. Mild surrounding erythema.
Tender to palpation. Ext. mechanism intact. Calf soft, nontender. DNVI RLE
Diagnostics:
CT RLE- 3.9 cm rim-enhancing ABSCESS located along the anterior margin of the distal right quadriceps myotendinous junction 5 cm superior to the patella. Moderate surrounding cellulitis. quad tendon repair intact. No CT evidence for acute
osteomyelitis or septic arthritis. Mild osteoarthritis in the right knee
Impression: Right knee abscess s/p right quad tendon repair
Plan: Discussed at length with the patient. This has been a long, frustrating process, which I completely commiserate with. He has now developed a small abscess just superior to the patella on CT. We discussed with Dr. August. He is available early
this week for (likely) additional procedure to remove the braided suture. Fortunately his repair remains intact and functionally he has been doing well. RBAs of continued non-operative management vs. operative intervention discussed. We strongly
recommend I&D of the right knee today. Dr. August suggests a wound vac as opposed to closure. Although he is currently on ABX we will obtain cultures. If any of the braided suture is accessible, and disruption of the repair is not a concern, we will
attempt to remove it. He has been consented to the procedure under the direction of Dr. Pereyra this AM. Consent has been placed to his chart. He remains NPO. Appreciate ID, plastics, etc input regarding his care. We will continue to follow along
throughout his hospital stay. Acute reactant inflammatory markers will be checked post-op as a baseline. Will follow intra-op Cx data as well, but continue with ABX per Dr. Roper/LUCIAN.
[2024-12-13] MEDS: MORPHINE SULFATE 4 MG IV (10:24)
--- NOTE | 2024-12-13 10:25 | W.IMMPOSTOP ---
Surgical Immed Post Op Note
-
Primary Surgeon: Ahmet Pereyra MD
Assisting Surgeon:
Pre-op Diagnosis: right thigh abscess
Post-op Diagnosis: right thigh abscess
Procedure Performed: irrigation and debridement right thigh
Anesthesia Type: general
Specimen / Cultures: tissue culture x1; aerobic and anaerobic swabs x1
Estimated Blood Loss: 5mL
Complications: none apparent
Operative Findings: minimal purulence, two fiberwire sutures removed
Touniquet time: 44 minutes @ 250 mmHg
Operative dictation # [id number]
[2024-12-13] MEDS: DILAUDID 1 MG IV ×2 (10:47→15:49)
[2024-12-13] MEDS: NORMOSOL-R/PLASMALYTE-A 1000 IV ×2 (11:16→19:03)
[2024-12-13] MEDS: ROXICODONE 5 MG PO (11:20)
[2024-12-13 12:31] LABS: C-Reactive Protein 17.60 mg/L (0.0-10.00)
--- NOTE | 2024-12-13 13:13 | W.PN.ID1 ---
Date of Service
Date of Service: December 13, 2024
Today's Communication
Continue cefazolin.
Assessment / Plan
# Relapse of MSSA soft tissue abscess over previous R quadriceps tendon repair site
- 12/13/24 s/p I+D, removal of 2 fiberwire sutures.
- OR cx's pending
- Contiunue with cefazolin 2g IV q8 (d2)
# Conditions prior to admission
Right ankle surgery ORIF /right quad repair 06/26/24.
MSSA bacteremia from right thigh abscess s/p I+D 07/22/24
DENILSON
Vestibular neuroma
HTN
Right clavicular ORIF
Chief Complaint
-: Other (knee abscess)
Subjective / Review of Systems
Had surgery this am
Vital Signs / Physical Exam
Vital Signs
Vital Signs
Temp Pulse Resp BP Pulse Ox
98.1 F 73 18 148/82 95
12/13/24 12:15 12/13/24 12:15 12/13/24 12:15 12/13/24 12:15 12/13/24 12:15
Physical Exam
Constitutional: No Acute Distress
Cardiovascular: Regular Rate and S1/S2
Pulmonary: Clear
Gastrointestinal: Soft, Non Tender and Non Distended
Wound: Other (RLE post-op dressing)
Objective Data
Lab Data
Lab Results
12/12/24 13:07
12/12/24 13:07
ESR 16 mm/hour (0-20) 12/13/24 11:23
Total Bilirubin 0.8 mg/dl (0.2-1.3) 12/12/24 13:07
AST 15 U/L (17-59) L 12/12/24 13:07
ALT 19 U/L (0-50) 12/12/24 13:07
Alkaline Phosphatase 80 U/L (38-126) 12/12/24 13:07
C-Reactive Protein 17.60 mg/L (0.0-10.00) H 12/13/24 11:23
Most recent labs reviewed.
Micro Results:
12/12/24 15:47 Wound Culture - Pending
Leg - Right Gram Stain - Preliminary
12/13/24 09:55 Tissue Culture - Pending
Leg - Right Gram Stain - Pending
12/13/24 09:55 Wound Culture - Pending
Leg - Right Gram Stain - Pending
12/13/24 09:55 Anaerobic Culture - Pending
Leg - Right
12/10/24 CT RLE: 3.9 cm rim-enhancing ABSCESS located along the anterior margin of the distal right quadriceps myotendinous junction 5 cm superior to the patella. Moderate surrounding cellulitis.
--- NOTE | 2024-12-13 13:57 | CM ---
CM reviewed chart, patient seen bedside, initial assessment completed. Patient resides with his in a [facility] style home, few steps to enter. Patient reports having crutches, walker, and grabs bars on toilet in the home. Patient reports history
with [facility], [facility] in past, will not return to rehab. Patient confirms PCP Kellie Reyes, [facility], confirms prescription coverage. Patient remains on IV antibiotics. CM will continue to follow for all discharge
planning needs.
Plan; home with , watch for [facility] needs, watch for IV antibiotic needs.
[2024-12-13] MEDS: DILAUDID 0.5 MG IV (15:10)
[2024-12-13] MEDS: ASPIRIN 325 MG PO (19:03)
[2024-12-13] MEDS: COLACE 100 MG PO (20:31)
[2024-12-13] MEDS: ZOLOFT 100 MG PO (21:20)
[2024-12-13] MEDS: ZESTRIL 10 MG PO (21:21)
[2024-12-13] MEDS: CLARITIN 10 MG PO (21:21)
[2024-12-13] MEDS: REMERON 15 MG PO (21:26)
[2024-12-14] MEDS: ANCEF 10 IV ×3 (05:14→21:11)
[2024-12-14] MEDS: NORMOSOL-R/PLASMALYTE-A 1000 IV ×2 (05:23→14:56)
[2024-12-14 07:38] LABS: Hematocrit 40.1 % (39.0-52.0); Hemoglobin 13.7 g/dL (13.0-18.0); Mean Corp Hgb Conc. 34.2 g/dL (33.0-37.0); Mean Corpuscular Volume 83.2 fL (80.0-94.0); Platelet Count 211 10^3/uL (130-400); Red Cell Dist. Width 15.1 % (11.5-14.5)
[2024-12-14 07:41] VITALS: BP 118/67
[2024-12-14 08:09] LABS: Blood Urea Nitrogen 12 mg/dl (9-20); Calcium 8.3 mg/dl (8.4-10.2); Carbon Dioxide 25 mmol/L (22-30); Chloride 105 mmol/L (98-107); Estimated Creatinine Clearance > 125 ml/min; Glucose 104 mg/dl (70-99); Potassium 3.9 mmol/L (3.5-5.1); Sodium 136 mmol/L (135-145); eGFR > 60.00
[2024-12-14] MEDS: COLACE 100 MG PO ×2 (08:23→21:12)
[2024-12-14] MEDS: ASPIRIN 325 MG PO (08:23)
[2024-12-14] MEDS: LOVENOX 40 MG SC (08:23)
[2024-12-14] MEDS: ROXICODONE 5 MG PO (08:28)
[2024-12-14 08:48] VITALS: BP 134/83; PULSE 64; O2SAT 98
[2024-12-14 09:07] VITALS: BP 121/83; PULSE 64; O2SAT 98
--- NOTE | 2024-12-14 09:11 | W.PN.ORTHO ---
Today's Communication / Plan
-
Appreciate primary team, continue treatment
Following intra-op Cx data (pending) to guide ABX therapy (Ancef for now)
Will appreciate Dr. August's input as well
--Fortunately we were able to remove the Fiber Wire suture, which may have been the nidus here
Continue with Wound Vac to right knee, recs per Dr. August
WBAT RLE with walker. KI to remain when OOB. Loosen KI while in bed
PT/OT
ASA + Lovenox for DVT ppx, or per primary
Elevate and ice for pain control, medication as needed
Will follow
Assessment
.
Distal Motor Intact: Yes
Dressing:
Clean, dry and intact. Soft dressings in place. No soiling. KI in place
Assessment:
POD#1 Right knee I&D
Overall doing/feeling well
Calf soft, nontender
Plan
.
Surgery / Date: Right Knee I&D December 25 ([facility])
DVT Prophylaxis: Aspirin and Lovenox (per primary)
Activity:
Out of bed. WBAT RLE. KI place at all times when OOB. Loosened in bed OK
PT/OT
Discharge Plan: Home (Appreciate CM)
Subjective
.
.:
Patient resting comfortably this AM. Mild pain overnight, but tolerable
Vital Signs and Labs
.
Vital Signs and Labs:
Lab Results
12/14/24 06:30
12/14/24 06:30
Temp Pulse Resp BP Pulse Ox
97.4 F 65 18 118/67 97
12/14/24 07:41 12/14/24 07:41 12/14/24 07:41 12/14/24 07:41 12/14/24 07:41
--- NOTE | 2024-12-14 11:42 | W.PN.HOSP.TC ---
Today's Communication/Plan
-
Monitor vital signs see plan
Wound VAC per orthopedics
Continue with antibiotics
Follow cultures
Discussed with orthopedics, will do Lovenox inpatient. Full dose aspirin on discharge. Hold full dose aspirin now
Assessment / Plan
Assessment / Plan
Gen: NAD, AAOx3.
Eyes: EOMI, PERRLA, no scleral icterus.
Neck: supple.
CV: RRR, +S1/S2, no m/r/g.
Resp: CTAB, no rales, wheezes, or rhonchi.
Abd: +BS, soft, NT, ND
Skin: No rashes.
Neuro: CN 2-12 intact, non-focal.
Psych: Normal mood and affect.
CT RLE:
1. 3.9 cm rim-enhancing ABSCESS located along the anterior margin of the distal right quadriceps myotendinous junction 5 cm superior to the patella. Moderate surrounding cellulitis.
2. Previous distal right quadriceps tendon repair.
3. No CT evidence for acute osteomyelitis or septic arthritis.
4. Mild osteoarthritis in the right knee.
5. Moderate osteoarthritis in the right hip.
6. Chronic urinary bladder outlet obstruction.
R Suprapatellar abscess
-cont IV Ancef as per ID
-s/p irrigation and debridement right thigh by Dr. Pereyra 12/12/24. follow cultures
wound vac per ortho; ortho to consult plastics if needed
-pain control
-follow intraop Cxs
Discussed with orthopedics, will do Lovenox while inpatient; full dose aspirin on discharge
Other problems:
Essential hypertension: cont ACEi
Depression/insomnia: cont Zoloft/Remeron
DENILSON: cont CPAP
Obesity due to excess calories, BMI 35.4
FULL/Lovenox
I spent a total of 52 minutes with the patient or on the floor. More than 50% of this time involved counseling and coordination of care.
Anticipated Discharge: > 48 hours
Subjective/Interval History
-
Date of Service: December 14, 2024
denies significant pain
Objective Data
-
Labs:
Laboratory Results
12/14/24
06:30
WBC 14.1 H
Hgb 13.7
Hct 40.1
Plt Count 211
Sodium 136
Potassium 3.9
Chloride 105
Carbon Dioxide 25
BUN 12
Creatinine 0.6 L
Glucose 104 H
Calcium 8.3 L
Vital Signs:
Vital Signs
Temp Pulse Resp BP Pulse Ox
97.4 F 65 18 118/67 97
12/14/24 07:41 12/14/24 07:41 12/14/24 07:41 12/14/24 07:41 12/14/24 07:41
I&O
12/13/24 12/14/24 12/15/24
06:59 06:59 06:59
Intake Total 500 / 500 1999 / 1999
Output Total 2074
Balance 500 / 500 -75 / -75
--- NOTE | 2024-12-14 14:16 | W.PN.ID1 ---
Date of Service
Date of Service: December 14, 2024
Today's Communication
- Continue with cefazolin 2g IV q8 (d3) through 01/22/25
- Place PICC
- Infusion sheet submitted to supportive employment case manager.
Assessment / Plan
# Relapse of MSSA soft tissue abscess over previous R quadriceps tendon repair site
- 12/13/24 s/p I+D, removal of 2 fiberwire sutures.
- OR cx's S. aureus
- treat as foreign body infection/tendinitis
- Continue with cefazolin 2g IV q8 (d3) through 01/22/25
- Place PICC
- Infusion sheet submitted to supportive employment case manager.
# Conditions prior to admission
Right ankle surgery ORIF /right quad repair 06/26/24.
MSSA bacteremia from right thigh abscess s/p I+D 07/22/24
DENILSON
Vestibular neuroma
HTN
Right clavicular ORIF
Chief Complaint
-: Other (knee abscess)
Subjective / Review of Systems
No complaints.
Vital Signs / Physical Exam
Vital Signs
Vital Signs
Temp Pulse Resp BP Pulse Ox
97.4 F 65 18 118/67 97
12/14/24 07:41 12/14/24 07:41 12/14/24 07:41 12/14/24 07:41 12/14/24 07:41
Physical Exam
Constitutional: No Acute Distress and Comfortable
Eyes: Sclera Anicteric
Cardiovascular: Regular Rate and S1/S2
Pulmonary: Clear
Gastrointestinal: Soft, Non Tender and Non Distended
Neurological: AO x 3
Objective Data
Lab Data
Lab Results
12/14/24 06:30
12/14/24 06:30
ESR 16 mm/hour (0-20) 12/13/24 11:23
Estimated Creat Clear > 125 ml/min 12/14/24 06:30
Total Bilirubin 0.8 mg/dl (0.2-1.3) 12/12/24 13:07
AST 15 U/L (17-59) L 12/12/24 13:07
ALT 19 U/L (0-50) 12/12/24 13:07
Alkaline Phosphatase 80 U/L (38-126) 12/12/24 13:07
C-Reactive Protein 17.60 mg/L (0.0-10.00) H 12/13/24 11:23
Most recent labs reviewed.
Micro Results:
12/13/24 09:55 Anaerobic Culture - Preliminary
Leg - Right Culture pending. Anaerobic cultures are examined after 3
days incubation. Additional information to follow.
12/13/24 09:55 Wound Culture - Preliminary
Leg - Right Staphylococcus aureus
Gram Stain - Preliminary
12/13/24 09:55 Tissue Culture - Preliminary
Leg - Right Gram Stain - Preliminary
12/12/24 15:47 Wound Culture - Preliminary
Leg - Right Gram Stain - Preliminary
12/10/24 CT RLE: 3.9 cm rim-enhancing ABSCESS located along the anterior margin of the distal right quadriceps myotendinous junction 5 cm superior to the patella. Moderate surrounding cellulitis.
[2024-12-14 14:51] VITALS: BP 136/78
--- NOTE | 2024-12-14 15:10 | CM ---
Chart reviewed. Per ID, patient will require continuous IV abx at d/c. Script received.
Met w/ patient bedside to discuss. Patient is familiar w/ [facility] as he was a patient w/ them in the past
Script and clinicals sent to [facility], informed Aleida. CM will review estimated weekly co pay once determined by [facility]
Therapy rec home PT at d/c
Plan: Home w/ IV abx through [facility]
--- NOTE | 2024-12-14 16:59 | CON.PS ---
Consultation - Plastic Surgery
Consultation Request
Date/Time Consultation Requested: 12/14/2024
Date/Time Consultation Performed: Same
Requesting Provider: DUC August MD
Performing Provider: Same
Reason for Consultation: Right knee wound
Medical History
-
Chief Complaint: Right knee wound
History of Present Illness:
Patient is a 64-year-old male with a history of a right knee wound following quadriceps repair. He had undergone prior I&D procedures and prolonged IV antibiotics. The wound recurred as did the infection prompting his admission to the hospital via
the emergency department. He had 2 draining sinuses 1 superiorly and 1 inferiorly along the prior surgical incision of the knee. A plan was made with orthopedic surgery to do staged debridement washout with removal of the permanent suture material
for the repair. This has been completed and definitive closure is now appropriate. Plan was made with infectious disease for another round of IV antibiotics given the culture data.
Allergies / Home Medications
Allergy/AdvReac Type Severity Reaction Status Date / Time
No Known Allergies Allergy Verified 12/12/24 11:43
�Medication �Instructions �Recorded �Confirmed �Type
mirtazapine 15 mg tablet 15 mg PO HS Mental Health/Anxiety 06/26/24 12/12/24 History
sertraline 100 mg tablet 100 mg PO HS Mental Health/Anxiety 06/26/24 12/12/24 History
fexofenadine 180 mg tablet 180 mg PO HS Allergies 12/12/24 12/12/24 History
ibuprofen 200 mg tablet 600 mg PO DAILYPRN PRN mild pain 12/12/24 12/12/24 History
lisinopril 10 mg tablet 10 mg PO HS Blood Pressure 12/12/24 12/12/24 History
Physical Exam
Vital Signs
Temp 98.2 F 12/14/24 14:51
Temp route: Oral 12/14/24 14:51
Pulse 75 12/14/24 14:51
Resp Rate 18 12/14/24 14:51
Blood pressure 136/78 12/14/24 14:51
Blood pressure extremity used: Right upper arm 12/14/24 14:51
Position: Lying 12/14/24 14:51
MAP (cuff-Amando Monitor) 100 12/13/24 10:45
SaO2 97 12/14/24 14:51
Nasal Cannula flow liters per minute 2 12/13/24 13:15
Oxygen Mode of Delivery Room air 12/14/24 14:51
Oxygen Mode of Delivery: Nasal cannula 12/13/24 11:00
Flow liters per minute # 6 12/13/24 10:03
Pulse Ox at Rest 98 12/14/24 09:07
Acceptable pain level during hospitalization? 0 12/12/24 11:43
Can the patient verbally communicate their pain? Yes 12/14/24 15:00
Pain scale ratin 12/14/24 15:00
Actual Weight 240 lb 12/12/24 17:33
Body Mass Index (BMI) 35.5 12/12/24 17:33
Supine- Blood Pressure 121/83 12/14/24 09:07
Supine- Pulse 64 12/14/24 09:07
Physical exam:
Right knee immobilizer in place
Right incisional VAC in place
Lab Results
12/14/24 06:30
12/14/24 06:30
Assessment / Plan
-
Recurrent right knee infection status post quadriceps repair, now status post multiple I&D's with most recent removal of FiberWire
Will plan for additional washout and debridement with delayed primary closure versus complex closure for definitive management
N.p.o.
OR tomorrow
Appreciate everyone's help
--- NOTE | 2024-12-14 16:59 | W.PN.UPDATE ---
Update Note
Progress Note Update
Plastic Surgery Note:
Plan for OR tomorrow for repeat washout and possible closure, vac placement.
NPO after 12
[2024-12-14] MEDS: REMERON 15 MG PO (21:10)
[2024-12-14] MEDS: CLARITIN 10 MG PO (21:10)
[2024-12-14] MEDS: ZOLOFT 100 MG PO (21:11)
[2024-12-14] MEDS: ZESTRIL 10 MG PO (21:11)
[2024-12-14 23:00] VITALS: BP 152/87
[2024-12-15] VITALS (13 sets, daily range): BP systolic 0–151; BP diastolic 65–90
[2024-12-15 05:24] LABS: Hematocrit 41.5 % (39.0-52.0); Hemoglobin 14.1 g/dL (13.0-18.0); Mean Corp Hgb Conc. 34.0 g/dL (33.0-37.0); Mean Corpuscular Volume 82.7 fL (80.0-94.0); Nucleated Red Blood Cells % 0 % (-); Platelet Count 187 10^3/uL (130-400); Red Cell Dist. Width 15.0 % (11.5-14.5)
[2024-12-15 05:55] LABS: Blood Urea Nitrogen 13 mg/dl (9-20); Calcium 8.6 mg/dl (8.4-10.2); Carbon Dioxide 27 mmol/L (22-30); Chloride 108 mmol/L (98-107); Estimated Creatinine Clearance > 125 ml/min; Glucose 92 mg/dl (70-99); Potassium 3.9 mmol/L (3.5-5.1); Sodium 138 mmol/L (135-145); eGFR > 60.00
[2024-12-15] MEDS: ANCEF 10 IV ×2 (06:00→22:07)
--- NOTE | 2024-12-15 06:02 | W.PN.ORTHO ---
Today's Communication / Plan
-
64-year-old male POD #2 Irrigation and debridement of right thigh 12/13/[address] Pereyra.
- Appreciate primary team, continue treatment.
- Intra-op Cx (+) Staphylococcus aureus. Continue with IV Abx per ID recommendations; currently on Ancef.
- Appreciate Dr. August's input as well. Plan for OR today for repeat washout and possible closure, VAC placement. Patient to remain NPO.
- Continue with Wound Vac to right knee; recs per Dr. August.
- WBAT RLE with walker. KI to remain when OOB. Loosen KI while in bed
- PT/OT as tolerated.
- DVT Prophylaxis per primary team (Lovenox).
- Elevate and ice for pain control, medication as needed.
- Orthopedic surgery will continue to follow along.
Assessment
.
Distal Motor Intact: Yes
Dressing:
Clean, dry and intact. Soft dressings in place. KI in place.
Assessment:
POD#2 Right knee I&D.
Overall doing/feeling well.
Calf soft, nontender.
Plan
.
Surgery / Date: Right Knee I&D December 25 (Hafsa)
DVT Prophylaxis: Lovenox (Per Primary Team. )
Activity:
Out of bed. WBAT RLE. KI place at all times when OOB. Loosened in bed OK
PT/OT.
Discharge Plan: Home
Discharge Information:
Appreciate CM.
Subjective
.
.:
Patient resting comfortably.
Vital Signs and Labs
.
Vital Signs and Labs:
Lab Results
12/15/24 05:13
12/15/24 05:13
Temp Pulse Resp BP Pulse Ox
98.7 F 71 18 152/87 94
12/14/24 23:00 12/14/24 23:00 12/14/24 23:00 12/14/24 23:00 12/14/24 23:00
[2024-12-15] MEDS: LOVENOX SC (07:58)
[2024-12-15] MEDS: COLACE 100 MG PO ×2 (07:59→19:27)
--- NOTE | 2024-12-15 09:32 | VNURNOTE ---
Home Health Liaison met with patient at bedside to discuss [facility] nurse/therapy, visits, schedule and homebound status. Patient is agreeable and understands that visits at home will be 2-3 x per week to assess and teach medical management. He is
familiar with [facility]. He is aware that [facility] will contact them for start of care in 1-2 days after discharge from .
[facility] referral accepted in [facility].
--- NOTE | 2024-12-15 10:01 | PN.CDI ---
CDI
- -
CDI:
Physician Documentation Request
Admit Date: 12/12/24 15:57
Dear Doctor Hafsa,
12/13 Patient underwent irrigation and debridement of right thigh.
Could you provide, in the progress notes further clarification regarding the debridement.
Please specify the type of debridement performed:
1. Excisional Debridement - defined as removal by excision of devitalized tissue, necrosis or slough
2. Non-excisional debridement - defined as removal of devitalized tissue, necrosis or slough by such methods as irrigation, brushing, scrubbing or washing.
If the debridement was excisional, please also include:
1. Type of instrument used (#11 blade, #15 blade etc.)
2. What was excised (necrotic tissue, gangrenous tissue, slough etc.)
For excisional or non-excisional, please also include:
1. Depth of debridement (skin, subcutaneous tissue, fascia, muscle, bone etc)
2. Size and appearance of the wound (L, W, D, color of wound, drainage)
Use of terms such as suspected, likely, concern for, or probable (associated with a specific diagnosis that is being evaluated, monitored, or treated as if it exists) are acceptable and can be coded in the inpatient setting, when documented at the
time of discharge.
Thank you,
Prerna Matos RN, BSN
CDI Specialist
tiger text
Please use your independent medical judgment in providing your response.
--- NOTE | 2024-12-15 10:29 | W.PN.UPDATE ---
Update Note
Progress Note Update
responding to a CDI query:
Excision al debridement of a 1x4 cm and 2x2 cm wound using a #10 blade, curette, and rongeur was performed. Wounds were erythematous with fibrinous base distally, and with purulent drainage proximally. Subcutaneous devitalized tissue was debrided,
fascia and tendon were not debrided.
--- NOTE | 2024-12-15 11:11 | W.PN.ID1 ---
Date of Service
Date of Service: December 15, 2024
Today's Communication
- Continue with cefazolin 2g IV q8 through 01/22/25
Assessment / Plan
# Relapse of MSSA soft tissue abscess over previous R quadriceps tendon repair site
- 12/13/24 s/p I+D, removal of 2 fiberwire sutures.
- OR cx's pending
- Wound swab: MSSA
- treat as foreign body infection/tendinitis
- Continue with cefazolin 2g IV q8 through 01/22/25
- Infusion sheet submitted to welfare case worker.
# Conditions prior to admission
Right ankle surgery ORIF /right quad repair 06/26/24.
MSSA bacteremia from right thigh abscess s/p I+D 07/22/24
DENILSON
Vestibular neuroma
HTN
Right clavicular ORIF
Chief Complaint
-: Other (knee abscess)
Subjective / Review of Systems
No complaints.
Vital Signs / Physical Exam
Vital Signs
Vital Signs
Temp Pulse Resp BP Pulse Ox
98.4 F 66 18 137/81 95
12/15/24 07:59 12/15/24 07:59 12/15/24 07:59 12/15/24 07:59 12/15/24 07:59
Physical Exam
Constitutional: No Acute Distress and Comfortable
Eyes: Sclera Anicteric
Cardiovascular: Regular Rate and S1/S2
Pulmonary: Clear
Gastrointestinal: Soft, Non Tender and Non Distended
Wound: Other (left knee wound vac in place)
Neurological: AO x 3
Objective Data
Lab Data
Lab Results
12/15/24 05:13
12/15/24 05:13
ESR 16 mm/hour (0-20) 12/13/24 11:23
Estimated Creat Clear > 125 ml/min 12/15/24 05:13
Total Bilirubin 0.8 mg/dl (0.2-1.3) 12/12/24 13:07
AST 15 U/L (17-59) L 12/12/24 13:07
ALT 19 U/L (0-50) 12/12/24 13:07
Alkaline Phosphatase 80 U/L (38-126) 12/12/24 13:07
C-Reactive Protein 17.60 mg/L (0.0-10.00) H 12/13/24 11:23
Most recent labs reviewed.
Micro Results:
12/13/24 09:55 Anaerobic Culture - Preliminary
Leg - Right Culture pending. Anaerobic cultures are examined after 3
days incubation. Additional information to follow.
12/13/24 09:55 Wound Culture - Preliminary
Leg - Right S aureus-Methicillin Sensitive
Gram Stain - Preliminary
12/13/24 09:55 Tissue Culture - Preliminary
Leg - Right Gram Stain - Preliminary
12/12/24 15:47 Wound Culture - Preliminary
Leg - Right Gram Stain - Preliminary
12/10/24 CT RLE: 3.9 cm rim-enhancing ABSCESS located along the anterior margin of the distal right quadriceps myotendinous junction 5 cm superior to the patella. Moderate surrounding cellulitis.
--- NOTE | 2024-12-15 12:13 | W.PN.HOSP.TC ---
Today's Communication/Plan
-
monitor vital signs see plan
Continue antibiotics per infectious disease
Plan for or today by plastics
Wound VAC per plastics
Assessment / Plan
Assessment / Plan
Gen: NAD, AAOx3.
Eyes: EOMI, PERRLA, no scleral icterus.
Neck: supple.
CV: RRR, +S1/S2, no m/r/g.
Resp: CTAB, no rales, wheezes, or rhonchi.
Abd: +BS, soft, NT, ND
Skin: No rashes.
Neuro: CN 2-12 intact, non-focal.
Psych: Normal mood and affect.
CT RLE:
1. 3.9 cm rim-enhancing ABSCESS located along the anterior margin of the distal right quadriceps myotendinous junction 5 cm superior to the patella. Moderate surrounding cellulitis.
2. Previous distal right quadriceps tendon repair.
3. No CT evidence for acute osteomyelitis or septic arthritis.
4. Mild osteoarthritis in the right knee.
5. Moderate osteoarthritis in the right hip.
6. Chronic urinary bladder outlet obstruction.
R Suprapatellar abscess
-cont IV Ancef as per ID
-s/p irrigation and debridement right thigh by Dr. Pereyra 12/12/24. follow cultures
wound vac per ortho; Dr. August from plastics following. Plan for OR today.
Per infectious disease continue with cefazolin through 01/22/2025
-pain control
-follow intraop Cxs
Discussed with orthopedics, will do Lovenox while inpatient; full dose aspirin on discharge
WBAT RLE with walker
Other problems:
Essential hypertension: cont ACEi
Depression/insomnia: cont Zoloft/Remeron
DENILSON: cont CPAP
Obesity due to excess calories, BMI 35.4
FULL/Lovenox
I spent a total of 52 minutes with the patient or on the floor. More than 50% of this time involved counseling and coordination of care.
Anticipated Discharge: 24 - 48 hours
Subjective/Interval History
-
Date of Service: December 15, 2024
Denies nausea
Objective Data
-
Labs:
Laboratory Results
12/15/24
05:13
WBC 9.7
Hgb 14.1
Hct 41.5
Plt Count 187
Sodium 138
Potassium 3.9
Chloride 108 H
Carbon Dioxide 27
BUN 13
Creatinine 0.6 L
Glucose 92
Calcium 8.6
Vital Signs:
Vital Signs
Temp Pulse Resp BP Pulse Ox
98.4 F 66 18 137/81 95
12/15/24 07:59 12/15/24 07:59 12/15/24 07:59 12/15/24 07:59 12/15/24 07:59
I&O
12/14/24 12/15/24 12/16/24
06:59 06:59 06:59
Intake Total 1999 450 / 450
Output Total 2074 600 / 600 400 / 400
Balance -75 / -75 -150 / -150 -400 / -400
--- NOTE | 2024-12-15 15:52 | W.IMMPOSTOP ---
Surgical Immed Post Op Note
-
Primary Surgeon: Olivia August MD
Assisting Surgeon:
Pre-op Diagnosis: Right knee wound
Post-op Diagnosis: Same
Procedure Performed: Debridement to fascia, complex closure 10 cm, incisional wound VAC placement
Anesthesia Type: General
Specimen / Cultures: None
Estimated Blood Loss: 10 cc
Complications: None
Operative Findings: As expected
--- NOTE | 2024-12-15 15:52 | OR.RPT ---
Operative Report
Operative Report
Date of surgery: 12/15/2024
Surgeon: DUC August MD
Preoperative diagnosis: Right knee wound, surgical infection of right knee
Postoperative diagnosis: Same
Procedure:
1. Debridement of fascia, 10 x 5 cm, right knee
2. Complex closure, right knee, 10 x 5 cm
3. Incisional wound VAC placement right knee 10 cm
Anesthesia: General
Complications: None
Culture: None
EBL: 10 cc
Indications for procedure: Patient is a 64-year-old male known to me for multiple attempts to try to rectify a right knee wound infection following surgical repair of a quadriceps rupture. He was admitted this weekend after wound became
increasingly inflamed with increased drainage. Orthopedic surgery took the patient to the OR and removed the FiberWire from the repair. A plan was made for repeat washout and debridement with complex closure for definitive management. Patient was
consented accordingly, risk were reviewed including recurrent infection, wound breakdown, need for repeat procedure.
Procedure in detail: Patient was identified preoperatively and the surgical site was confirmed the right knee. All questions were answered and consents were confirmed. Patient was taken back to the operating placed upon table. Anesthesia was
induced and an LMA was placed. Patient was then prepped and draped in the usual sterile fashion using Betadine solution. Timeout for patient safety was performed and is confirmed that he is currently on antibiotics and prophylactic DVT therapy.
Procedure began with injection of 1% lidocaine with epinephrine around the right knee. The suture material from the prior washout was removed and the wound was noted to be 10 x 5 cm. This was debrided down to the level of fascia. Hematoma was
present below the skin closure. Meticulous hemostasis was ensured and 3 L of normal saline were irrigated throughout the wound. A 15 [place] drain was left at the wound base and sutured in place with a 2-0 Prolene. A complex closure over the
area 10 x 5 cm was then performed using a series of 2-0 Vicryl's followed by 2-0 nylon sutures in the skin. The distal portion of the skin had a granulating wound and an incisional VAC with a VAC placement over this area would be sufficient. This
was placed first by protecting the skin surrounding the wound. Patient tolerated the procedure well and was without complication, all counts are correct at the end the case. The patient was placed back in an William wrap and knee immobilizer. Is
extubated taken the PACU for further care.
--- NOTE | 2024-12-15 16:30 | PTCARENOTE ---
patient's belongings brought to room 2108 by tech. cpap included
[2024-12-15] MEDS: ANCEF IV (16:32)
--- NOTE | 2024-12-15 16:59 | W.PN.UPDATE ---
Update Note
Progress Note Update
Plastic surgery update note:
Wound was cleaned today. Appropriate for closure. A drain was placed to manage fluid output. VAC was replaced as an incisional VAC to remain for 5 to 7 days. Patient is appropriate for discharge when deemed acceptable by his primary team. Plan
is in place with infectious disease for IV antibiotics and a PICC is in place.
Will see the patient as an outpatient for VAC and drain removal in 5 to 7 days.
--- NOTE | 2024-12-15 18:24 | PTCARENOTE ---
1722 Pt arrived from PACU. R leg wrapped in kendal with immobilizer in place. wound vac maintained at 125mmhg. R leg BEN draining serosanguineous drainage. VSS. No complaints of pain. Neurovascular checks with in normal limits. Care ongoing.
[2024-12-15] MEDS: ZOLOFT 100 MG PO (22:05)
[2024-12-15] MEDS: CLARITIN 10 MG PO (22:05)
[2024-12-15] MEDS: ZESTRIL 10 MG PO (22:05)
[2024-12-15] MEDS: REMERON 15 MG PO (22:05)
[2024-12-15] MEDS: ROXICODONE 5 MG PO (22:13)
[2024-12-16] MEDS: DILAUDID 1 MG IV (02:29)
[2024-12-16 03:00] VITALS: BP 140/84
[2024-12-16 05:10] LABS: Hematocrit 43.3 % (39.0-52.0); Hemoglobin 14.7 g/dL (13.0-18.0); Mean Corp Hgb Conc. 33.9 g/dL (33.0-37.0); Mean Corpuscular Volume 83.3 fL (80.0-94.0); Nucleated Red Blood Cells % 0 % (-); Platelet Count 210 10^3/uL (130-400); Red Cell Dist. Width 15.1 % (11.5-14.5)
[2024-12-16] MEDS: ANCEF 10 IV ×3 (05:25→21:42)
[2024-12-16 05:35] LABS: Blood Urea Nitrogen 14 mg/dl (9-20); Calcium 9.1 mg/dl (8.4-10.2); Carbon Dioxide 25 mmol/L (22-30); Chloride 105 mmol/L (98-107); Estimated Creatinine Clearance > 125 ml/min; Glucose 98 mg/dl (70-99); Potassium 4.1 mmol/L (3.5-5.1); Sodium 136 mmol/L (135-145); eGFR > 60.00
[2024-12-16] MEDS: ROXICODONE 5 MG PO ×2 (05:39→13:16)
[2024-12-16] MEDS: TYLENOL 650 MG PO ×2 (05:39→20:28)
[2024-12-16 07:06] VITALS: BP 121/76
--- NOTE | 2024-12-16 07:49 | W.PN.UPDATE ---
Update Note
Progress Note Update
Mr. Sargent is POD3 following his right thigh I&D performed by Dr. Pereyra. He underwent debridement of fascia, Complex closure, and Incisional wound VAC placement under the direction of Dr. August yesterday. He is resting comfortably in bed this
morning. He endorses only mild aching pain in the knee. He reports they cleared about 10 cc of bloody fluid from his BEN drain this morning. Wound vac is in place and set to 125 mmHg.
Directed exam of the right lower extremity reveals surgical dressing in place, CDI. Calf soft and nontender. Neurovascularly intact distally.
Preliminary cultures from 12/13 growing MSSA.
64-year-old male POD #3 Irrigation and debridement of right thigh 12/13/[address] Pereyra, and POD1 above treatment with Dr. August
- Appreciate all teams in care of this patient, continue treatment.
- Recommend wound care and wound vac maintenance per Dr. August.
- Intra-op Cx (+) Staphylococcus aureus. Continue with IV Abx per ID recommendations; currently on Ancef.
- WBAT RLE with walker. KI to remain when OOB. Loosen KI while in bed
- PT/OT as tolerated.
- DVT Prophylaxis per primary team (Lovenox).
- Elevate and ice for pain control, medication as needed.
- Orthopedics will follow peripherally for now. Please reengage with any additional questions or concerns.
--- NOTE | 2024-12-16 08:41 | PN.CDI ---
CDI
- -
CDI:
Physician Documentation Request
Admit Date: 12/12/24 15:57
Dear Doctor Mariangel,
12/15 Patient underwent debridement of fascia, complex closure and vac placement right knee.
Could you provide, in the progress notes further clarification regarding the debridement.
Please specify the type of debridement performed:
1. Excisional Debridement - defined as removal by excision of devitalized tissue, necrosis or slough
2. Non-excisional debridement - defined as removal of devitalized tissue, necrosis or slough by such methods as irrigation, brushing, scrubbing or washing.
If the debridement was excisional, please also include:
1. Type of instrument used (#11 blade, #15 blade etc.)
Use of terms such as suspected, likely, concern for, or probable (associated with a specific diagnosis that is being evaluated, monitored, or treated as if it exists) are acceptable and can be coded in the inpatient setting, when documented at the
time of discharge.
Thank you,
Prerna Matos RN, BSN
CDI Specialist
tiger text
Please use your independent medical judgment in providing your response.
[2024-12-16] MEDS: COLACE 100 MG PO (09:02)
[2024-12-16] MEDS: LOVENOX 40 MG SC (09:02)
--- NOTE | 2024-12-16 10:20 | W.PN.ID1 ---
Date of Service
Date of Service: December 16, 2024
Today's Communication
- Continue with cefazolin 2g IV q8 through 01/22/25
Assessment / Plan
# Relapse of MSSA soft tissue abscess over previous R quadriceps tendon repair site
- 12/13/24 s/p I+D, removal of 2 fiberwire sutures.
- OR cx's MSSA
- Wound swab: MSSA
- 12/15/24 s/p Debridement of fascia, complex closure, wound vac placment
- treat as foreign body infection/tendinitis
- Continue with cefazolin 2g IV q8 through 01/22/25
- Infusion sheet submitted to catalytic case operator.
# Conditions prior to admission
Right ankle surgery ORIF /right quad repair 06/26/24.
MSSA bacteremia from right thigh abscess s/p I+D 07/22/24
DENILSON
Vestibular neuroma
HTN
Right clavicular ORIF
Chief Complaint
-: Other (knee abscess)
Subjective / Review of Systems
No complaints.
Vital Signs / Physical Exam
Vital Signs
Vital Signs
Temp Pulse Resp BP Pulse Ox
98.2 F 66 17 121/76 93
12/16/24 07:06 12/16/24 07:06 12/16/24 07:06 12/16/24 07:06 12/16/24 07:06
Physical Exam
Constitutional: No Acute Distress and Comfortable
Eyes: Sclera Anicteric
Cardiovascular: Regular Rate and S1/S2
Pulmonary: Clear
Gastrointestinal: Soft, Non Tender and Non Distended
Neurological: AO x 3
Lines: PICC (RUE intact)
Objective Data
Lab Data
Lab Results
12/16/24 04:34
12/16/24 04:34
ESR 16 mm/hour (0-20) 12/13/24 11:23
Estimated Creat Clear > 125 ml/min 12/16/24 04:34
Total Bilirubin 0.8 mg/dl (0.2-1.3) 12/12/24 13:07
AST 15 U/L (17-59) L 12/12/24 13:07
ALT 19 U/L (0-50) 12/12/24 13:07
Alkaline Phosphatase 80 U/L (38-126) 12/12/24 13:07
C-Reactive Protein 17.60 mg/L (0.0-10.00) H 12/13/24 11:23
Most recent labs reviewed.
Micro Results:
12/12/24 15:47 Wound Culture - Final
Leg - Right S aureus-Methicillin Sensitive
Gram Stain - Final
12/13/24 09:55 Tissue Culture - Final
Leg - Right S aureus-Methicillin Sensitive
Gram Stain - Final
12/13/24 09:55 Anaerobic Culture - Preliminary
Leg - Right Culture pending. Anaerobic cultures are examined after 3
days incubation. Additional information to follow.
12/13/24 09:55 Wound Culture - Preliminary
Leg - Right S aureus-Methicillin Sensitive
Gram Stain - Preliminary
12/10/24 CT RLE: 3.9 cm rim-enhancing ABSCESS located along the anterior margin of the distal right quadriceps myotendinous junction 5 cm superior to the patella. Moderate surrounding cellulitis.
--- NOTE | 2024-12-16 10:50 | W.PN.HOSP.TC ---
Today's Communication/Plan
-
Monitor vital signs see plan
Pain control
Wound VAC per plastic surgery
Continue with antibiotics
Discussed with insurance case manager, can be discharged once antibiotics and wound VAC set up
Assessment / Plan
Assessment / Plan
Gen: NAD, AAOx3.
Eyes: EOMI, PERRLA, no scleral icterus.
Neck: supple.
CV: RRR, +S1/S2, no m/r/g.
Resp: CTAB, no rales, wheezes, or rhonchi.
Abd: +BS, soft, NT, ND
Skin: No rashes.
Neuro: CN 2-12 intact, non-focal.
Psych: Normal mood and affect.
CT RLE:
1. 3.9 cm rim-enhancing ABSCESS located along the anterior margin of the distal right quadriceps myotendinous junction 5 cm superior to the patella. Moderate surrounding cellulitis.
2. Previous distal right quadriceps tendon repair.
3. No CT evidence for acute osteomyelitis or septic arthritis.
4. Mild osteoarthritis in the right knee.
5. Moderate osteoarthritis in the right hip.
6. Chronic urinary bladder outlet obstruction.
R Suprapatellar abscess
-cont IV Ancef as per ID; cefazolin 2g IV q8 through 01/22/25
-s/p irrigation and debridement right thigh by Dr. Pereyra 12/12/24. follow cultures MSSA
Status post OR again by plastic surgery Dr. August 12/15. Patient will follow-up with Dr. August on Saturday. Wound VAC per plastics
Per infectious disease continue with cefazolin through 01/22/2025
-pain control
-follow intraop Cxs
Discussed with orthopedics, will do Lovenox while inpatient; full dose aspirin on discharge
WBAT RLE with walker
Other problems:
Essential hypertension: cont ACEi
Depression/insomnia: cont Zoloft/Remeron
DENILSON: cont CPAP
Obesity due to excess calories, BMI 35.4
FULL/Lovenox
Anticipated Discharge: Today
Subjective/Interval History
-
Date of Service: December 16, 2024
has some pain
Objective Data
-
Labs:
Laboratory Results
12/16/24
04:34
WBC 8.1
Hgb 14.7
Hct 43.3
Plt Count 210
Sodium 136
Potassium 4.1
Chloride 105
Carbon Dioxide 25
BUN 14
Creatinine 0.7
Glucose 98
Calcium 9.1
Vital Signs:
Vital Signs
Temp Pulse Resp BP Pulse Ox
98.2 F 66 17 121/76 93
12/16/24 07:06 12/16/24 07:06 12/16/24 07:06 12/16/24 07:06 12/16/24 07:06
I&O
12/15/24 12/16/24 12/17/24
06:59 06:59 06:59
Intake Total 450 / 450 120 / 120
Output Total 600 / 600 1959 / 1959
Balance -150 / -150 -1959 / -1959 120 / 120
[2024-12-16 11:12] VITALS: BP 132/78
--- NOTE | 2024-12-16 11:30 | CM ---
Addendum entered by Francis Mi 12/16/24 13:55:
Per blocker hand, wound vac will be ordered today to submit to insurance company for approval and as soon as it approved, hope tomorrow, then home wound vac will be placed and pt can be discharged.
CM spoke to [facility] home infusion therapy liaison and she confirmed that they will start IV antibiotics the same day pt is discharged. Per [facility] care liaison, pt is known to them and pt knows how to administer IV infusion at home.
[facility] liaison following.
At this point, pt will be discharged most likely tomorrow after home wound vac placed and [facility] home infusion will start IV antibiotics therapy on the same day of discharge and [facility] will follow.
Pt is aware of the above. 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
Original Note:
CM following re: discharge planning.
Reviewed pt's chart, met with pt.
According to pt is medially stable to be discharged today.
Per ID pt will need cefazolin 2g IV q8 through 01/22/25. Per Dr. August, pt will need wound vac from 5 to 7 days. Per blocker hand, home wound vac is not covered by insurance for closed incision. Awaiting for input from Dr. August.
CM spoke to [facility] infusion therapy office and they confirmed that IV antibiotics covered 100%, no co-pay and [facility] infusion therapy liaison will meet with the pt today to coordinate a safe discharge plan.
[facility] liaison following.
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 Per pt, he is receiving antibiotics at 6:00 am, 2:00 p.m. and 10:00 p.m.
CM is coordinating pt's discharge with [facility] home infusion liaison, [facility] and automobile service station mechanic for wound vac.
D/C plan: home with [facility] IV infusion, [facility], possibly wound vac and family support.
[2024-12-16] MEDS: SENOKOT-S 1 TABLET PO (12:14)
--- NOTE | 2024-12-16 14:32 | WOUNDNOTE ---
[facility] RN note: Faxed Edilia from [facility] home ready care vac request paperwork. Confirmed R knee wound measurements with Dr. August. Await for approval.
[2024-12-16 15:07] VITALS: BP 130/77
--- NOTE | 2024-12-16 16:16 | WOUNDNOTE ---
[facility] RN note: Edilia Melendrez from [facility] notified this keno writer/runner that patient's home vac pump was approved. Notified Dr. Vickers and LAUREEN Blanco via tiger text. Dr. Vickers responded plan is discharge tomorrow. Will switch from hospital rental pump to
patient's home vac tomorrow.
[2024-12-16] MEDS: COLACE PO (20:24)
[2024-12-16] MEDS: ZOLOFT 100 MG PO (21:42)
[2024-12-16] MEDS: REMERON 15 MG PO (21:42)
[2024-12-16] MEDS: CLARITIN 10 MG PO (21:42)
[2024-12-16] MEDS: ZESTRIL 10 MG PO (21:42)
[2024-12-16 23:00] VITALS: BP 137/85
[2024-12-17] MEDS: ANCEF 10 IV ×2 (05:06→13:56)
[2024-12-17] MEDS: CATHFLO/ACTIVASE 2 MG INTRACATH (06:12)
--- NOTE | 2024-12-17 06:17 | VATNOTE ---
NO BLOOD RETURN FROM EITHER LUMEN OF 4FR DL R PICC. BOTH LUMENS FLUSH EASILY. CATHFLO PROTOCOL INITITATED VIA WHITE LUMEN DOCUMENTED. PCN AWARE OF INTERVENTION. VAT TO MONITOR. PT UNDERSTANDS PLAN OF CARE.
[2024-12-17 07:35] VITALS: BP 141/100
--- NOTE | 2024-12-17 08:12 | VATNOTE ---
Positive Blood Return from white lumen after Cathflo was administered. Both lumens flushed easily. AM labs obtained and sent.
[2024-12-17 08:30] LABS: Hematocrit 45.8 % (39.0-52.0); Hemoglobin 15.7 g/dL (13.0-18.0); Mean Corp Hgb Conc. 34.3 g/dL (33.0-37.0); Mean Corpuscular Volume 82.8 fL (80.0-94.0); Nucleated Red Blood Cells % 0 % (-); Platelet Count 221 10^3/uL (130-400); Red Cell Dist. Width 14.8 % (11.5-14.5)
[2024-12-17 08:51] LABS: Blood Urea Nitrogen 14 mg/dl (9-20); Calcium 9.6 mg/dl (8.4-10.2); Carbon Dioxide 24 mmol/L (22-30); Chloride 107 mmol/L (98-107); Estimated Creatinine Clearance > 125 ml/min; Glucose 97 mg/dl (70-99); Potassium 4.4 mmol/L (3.5-5.1); Sodium 137 mmol/L (135-145); eGFR > 60.00
[2024-12-17] MEDS: COLACE 100 MG PO (09:10)
[2024-12-17] MEDS: LOVENOX 40 MG SC (09:10)
--- NOTE | 2024-12-17 10:23 | W.PN.ID1 ---
Date of Service
Date of Service: December 17, 2024
Today's Communication
- Continue with cefazolin 2g IV q8 through 01/22/25
Assessment / Plan
# Relapse of MSSA soft tissue abscess over previous R quadriceps tendon repair site
- 12/13/24 s/p I+D, removal of 2 fiberwire sutures.
- OR cx's MSSA
- Wound swab: MSSA
- 12/15/24 s/p Debridement of fascia, complex closure, wound vac placment
- treat as foreign body infection/tendinitis
- Continue with cefazolin 2g IV q8 through 01/22/25
- Infusion sheet submitted to mental health case manager.
# Conditions prior to admission
Right ankle surgery ORIF /right quad repair 06/26/24.
MSSA bacteremia from right thigh abscess s/p I+D 07/22/24
DENILSON
Vestibular neuroma
HTN
Right clavicular ORIF
Chief Complaint
-: Other (knee abscess)
Subjective / Review of Systems
Feels well.
Vital Signs / Physical Exam
Vital Signs
Vital Signs
Temp Pulse Resp BP Pulse Ox
98.5 F 75 16 141/100 98
12/17/24 07:35 12/17/24 07:35 12/17/24 07:35 12/17/24 07:35 12/17/24 07:35
Physical Exam
Constitutional: No Acute Distress and Comfortable
Eyes: Sclera Anicteric
Cardiovascular: Regular Rate and S1/S2
Pulmonary: Clear
Gastrointestinal: Soft, Non Tender and Non Distended
Musculoskeletal: Other (Right knee with wound vac and BEN drain (bloody fluid))
Neurological: AO x 3
Lines: PICC (RUE intact)
Objective Data
Lab Data
Lab Results
12/17/24 08:07
12/17/24 08:07
ESR 16 mm/hour (0-20) 12/13/24 11:23
Estimated Creat Clear > 125 ml/min 12/17/24 08:07
Total Bilirubin 0.8 mg/dl (0.2-1.3) 12/12/24 13:07
AST 15 U/L (17-59) L 12/12/24 13:07
ALT 19 U/L (0-50) 12/12/24 13:07
Alkaline Phosphatase 80 U/L (38-126) 12/12/24 13:07
C-Reactive Protein 17.60 mg/L (0.0-10.00) H 12/13/24 11:23
Most recent labs reviewed.
Micro Results:
12/13/24 09:55 Anaerobic Culture - Preliminary
Leg - Right NO ANAEROBES ISOLATED
12/12/24 15:47 Wound Culture - Final
Leg - Right S aureus-Methicillin Sensitive
Gram Stain - Final
12/13/24 09:55 Tissue Culture - Final
Leg - Right S aureus-Methicillin Sensitive
Gram Stain - Final
12/13/24 09:55 Wound Culture - Preliminary
Leg - Right S aureus-Methicillin Sensitive
Gram Stain - Preliminary
12/10/24 CT RLE: 3.9 cm rim-enhancing ABSCESS located along the anterior margin of the distal right quadriceps myotendinous junction 5 cm superior to the patella. Moderate surrounding cellulitis.
--- NOTE | 2024-12-17 10:39 | W.PN.HOSP.TC ---
Today's Communication/Plan
-
Monitor vital signs see plan
Continue with antibiotic per ID
Wound VAC and antibiotics set up
Discussed with casework manager, discharge today
Time of discharge 38 minutes
Assessment / Plan
Assessment / Plan
Gen: NAD, AAOx3.
Eyes: EOMI, PERRLA, no scleral icterus.
Neck: supple.
CV: RRR, +S1/S2, no m/r/g.
Resp: CTAB, no rales, wheezes, or rhonchi.
Abd: +BS, soft, NT, ND
Skin: No rashes.
Neuro: CN 2-12 intact, non-focal.
Psych: Normal mood and affect.
CT RLE:
1. 3.9 cm rim-enhancing ABSCESS located along the anterior margin of the distal right quadriceps myotendinous junction 5 cm superior to the patella. Moderate surrounding cellulitis.
2. Previous distal right quadriceps tendon repair.
3. No CT evidence for acute osteomyelitis or septic arthritis.
4. Mild osteoarthritis in the right knee.
5. Moderate osteoarthritis in the right hip.
6. Chronic urinary bladder outlet obstruction.
R Suprapatellar abscess
Relapse of MSSA soft tissue abscess over previous R quadriceps tendon repair site
-cont IV Ancef as per ID; cefazolin 2g IV q8 through 01/22/25
-s/p irrigation and debridement right thigh by Dr. Pereyra 12/12/24. follow cultures MSSA
Status post OR again by plastic surgery Dr. August 12/15. Patient will follow-up with Dr. August on Saturday. Wound VAC per plastics. discussed with CM, wound vac set up today
Per infectious disease continue with cefazolin through 01/22/2025
-pain control
-follow intraop Cxs
Discussed with orthopedics, will do Lovenox while inpatient; full dose aspirin on discharge
WBAT RLE with walker
Other problems:
Essential hypertension: cont ACEi
Depression/insomnia: cont Zoloft/Remeron
DENILSON: cont CPAP
Obesity due to excess calories, BMI 35.4
FULL/Lovenox
Anticipated Discharge: Today
Subjective/Interval History
-
Date of Service: December 17, 2024
denies pain
Objective Data
-
Labs:
Laboratory Results
12/17/24
08:07
WBC 9.0
Hgb 15.7
Hct 45.8
Plt Count 221
Sodium 137
Potassium 4.4
Chloride 107
Carbon Dioxide 24
BUN 14
Creatinine 0.6 L
Glucose 97
Calcium 9.6
Vital Signs:
Vital Signs
Temp Pulse Resp BP Pulse Ox
98.5 F 75 16 141/100 98
12/17/24 07:35 12/17/24 07:35 12/17/24 07:35 12/17/24 07:35 12/17/24 07:35
I&O
12/16/24 12/17/24 12/18/24
06:59 06:59 06:59
Intake Total 140 / 140
Output Total 1959 580 / 580
Balance -1959 / -1959 -440 / -440
--- NOTE | 2024-12-17 10:46 | W.DCSUMMARY ---
Discharge Summary
Discharge Data
Date of Admission: 12/12/24
Date of Discharge: 12/17/24
-
Pending Results: Yes
Hospital Course
64-year-old male with past medical history of hypertension, depression, obstructive sleep apnea, recent quadricep tendon repair with subsequent infection came to the hospital with recurrent infection. CT scan was consistent with MSSA soft tissue
abscess over previous right quadricep tendon repair site. Patient was seen by orthopedics throughout hospitalization and was taken for I&D. Patient was later seen by plastic surgery who also took patient to the OR for cleaning and wound VAC.
Patient culture continues to grow MSSA. Patient was seen by infectious disease throughout hospitalization and was instructed to continue cefazolin through 01/22/2025. Once patient's symptoms continue to improve, he was then discharged home with
instructions to follow-up with all his physicians outpatient.
Discharge Plan
-
Patient Disposition: Home with Home Care
Discharge Diagnosis/Procedures: Relapse of MSSA soft tissue abscess over previous R quadriceps tendon repair site
Condition: Fair
Diet: As tolerated
Driving Restrictions: Not until seen by your Dr
Bathing Restrictions: None
Wound Care: Strip and record drain output twice daily. Vac to be used continuously until removed in office in 5-7 days. Knee immobilizer x 2 weeks.
Activity Restrictions/Additional Instructions:
weight as tolerated right lower extremity with walker. KI to remain when OOB.
Call surgeon, [facility] or /[facility] vac tech support ([phone]) for vac problems/concerns
Referrals:
Kellie Reyes PA [Family Provider, Family Practice] - in less than 1 week
Ahmet Pereyra MD [Active, Orthopedics] - in less than 1 week
Han August MD [Active, Plastic Surgery] - in less than 1 week
Emely Roper MD [Active, Infectious Diseases] - in three to four weeks
Prescriptions:
New
aspirin 325 mg Tablet
325 mg PO DAILY Qty: 28 0RF
cefazolin 10 gram Recon Soln
2 g IV Q8H Qty: 0 0RF
docusate sodium 100 mg Capsule
100 mg PO BID Qty: 0 0RF
acetaminophen 325 mg Tablet
650 mg PO Q4HPRN PRN (Reason: mild pain,headache, temp >101F) Qty: 0 0RF
oxycodone 5 mg Tablet
5 mg PO Q4HPRN PRN (Reason: moderate to severe pain) Qty: 0 0RF
Continued
sertraline 100 mg Tablet
100 mg PO HS
mirtazapine 15 mg Tablet
15 mg PO HS
fexofenadine 180 mg Tablet
180 mg PO HS
lisinopril 10 mg tablet
10 mg PO HS
Discontinued
ibuprofen 200 mg Tablet
600 mg PO DAILYPRN PRN (Reason: mild pain)
Discharge Orders:
Discharge Patient (As Directed); Ordered 12/17/24
Ordered By: Kb Vickers
Discharge Date and Time
Discharge Date/Time: 12/17/24 16:45
Print Language: PASHTO
--- NOTE | 2024-12-17 10:54 | CM ---
CM following re: discharge planning.
Reviewed pt's chart, met with pt.
Discharge order noted.
Pt is aware, expressed his agreement and pt stated his spouse will transport him home after work.
CM spoke to [employer]aph[employer] typist and she confirmed that wound vac has been approved by insurance and she will placed wound vac shortly.
LAUREEN spoke to [facility] infusion liaison and she confirmed that pt will need to get his second dose of IV in the hospital at 2:00 p.m. and [facility] will deliver medications to pt's home this afternoon and pt will administer his 3d dose of
IV at 10.00 p.m.
Please fax discharge instructions to [facility]N at [phone] and [facility] infusion therapy at [phone]
D/C plan: home with [facility], [facility] infusion therapy, wound vac and family support. Spouse to transport.
--- NOTE | 2024-12-17 11:30 | WOUNDNOTE ---
[facility] RN note: Patient signed [employer] home vac proof of delivery form. Patient's home vac supplies given (serial #[id number]). Switched hospital rental vac ulta pump to patient's home vac without difficulty. Instructed patient how to turn on/off pump,
change canister, disconnect/clamp and reconnect/unclamp vac tubing. Instructed patient to call surgeon, [facility]N or [employer] support 24/12 if vac does not maintain a suction. Patient aware vac suction should not be off for more than 2 hours.
Instructed patient if jarad bleeding occurs to disconnect vac tubing, turn off vac and call 911. Patient has R knee immobilizer in place. He stated surgeon stated he can open immobilizer a little while in bed. Skin on heels and sacrum intact.
Coccyx crease with pink intact skin suspect r/t moisture. Patient instructed pressure injury prevention measures. He denies any pain from R knee immobilizer. RLE elevated on pillow. Patient aware to follow up with Dr. August for vac dressing
removal.
--- NOTE | 2024-12-17 12:47 | WOUNDNOTE ---
[facility] RN note: Faxed patient signed [employer] home vac equipment form to Edilia Melendrez from [employer]. Notified [employer] of stop rental bill date of hospital vac ulta pump as of today and for belt picker (work order #[id number]).
--- NOTE | 2024-12-17 14:14 | PTCARENOTE ---
RN demonstrated and verbally instructed patient on care, emptying and stripping of BEN drain. Patient demonstrated understanding on how to empty and compress drain. Patient verbalized understanding on how to strip drain. Patient instructed on PICC
line cleaning hub and administering med. Portable wound vac and right knee immobilizer in place and WNL.
[2024-12-17 15:10] VITALS: BP 151/94
== END 2024-12-17 16:45 | disposition home health service (06) | DRG 857 ==
LOC: 2 SOUTH 15:57
PROVIDERS: Internal Medicine; Nurse Practitioner; Physician Assistant Surgical; Radiology Neuroradiology; ADMITTING PHYSICIAN Internal Medicine; ATTENDING PHYSICIAN Internal Medicine; CONSULT PHYSICIAN Internal Medicine Infectious Disease; CONSULT PHYSICIAN Student in an Organized Health Care Education/Training Program; CONSULT PHYSICIAN Surgery Plastic and Reconstructive Surgery; EMERGENCY PHYSICIAN Emergency Medicine; FAMILY PHYSICIAN Physician Assistant
PROC: 0JBL0ZZ Excision of Right Upper Leg Subcutaneous Tissue and Fascia, Open Approach (ICD-10-PCS; 2024-12-13)
PROC: 5A09357 Assistance with Respiratory Ventilation, Less than 24 Consecutive Hours, Continuous Positive Airway Pressure (ICD-10-PCS; 2024-12-13)
PROC: 02HV33Z Insertion of Infusion Device into Superior Vena Cava, Percutaneous Approach (ICD-10-PCS; 2024-12-14)
PROC: 0JBN0ZZ Excision of Right Lower Leg Subcutaneous Tissue and Fascia, Open Approach (ICD-10-PCS; 2024-12-15)
PROC: 0J9N00Z Drainage of Right Lower Leg Subcutaneous Tissue and Fascia with Drainage Device, Open Approach (ICD-10-PCS; 2024-12-15)
DX: T81.41XA Infection following a procedure, superficial incisional surgical site, initial encounter (principal); L02.415 Cutaneous abscess of right lower limb; L03.115 Cellulitis of right lower limb; R22.41 Localized swelling, mass and lump, right lower limb; I10 Essential (primary) hypertension; F32.A Depression, unspecified; G47.00 Insomnia, unspecified; E66.09 Other obesity due to excess calories; G47.33 Obstructive sleep apnea (adult) (pediatric); B95.61 Methicillin susceptible Staphylococcus aureus infection as the cause of diseases classified elsewhere; D33.3 Benign neoplasm of cranial nerves; Y83.8 Other surgical procedures as the cause of abnormal reaction of the patient, or of later complication, without mention of misadventure at the time of the procedure; Y92.9 Unspecified place or not applicable; Z68.35 Body mass index [BMI] 35.0-35.9, adult
CPT/HCPCS: 71045; 80048; 80053; 85025; 85027; 85652; 86140; 87070; 87075; 87147; 87176; 87186; 87205; 96374; 97116; 97162; 97166; 97535; 99284; J2997

== ENCOUNTER → 2025-04-05 10:48 | Outpatient (REF) | payer OTHER, SELFPAY | LOC: RCS 10:48 | PROVIDERS: ATTENDING PHYSICIAN Nurse Practitioner Family | DX: I10 Essential (primary) hypertension (principal) | CPT/HCPCS: 93017 ==